=== PATIENT | female | born 1985 | race Caucasian/White ===

== ENCOUNTER 2023-12-02 12:07 | Inpatient (IN) ==
[2023-12-02] MEDS ORDERED: LIDOCAINE 1% LOCAL 20 ML VIAL INFIL PRN (13:09)
[2023-12-02] MEDS ORDERED: OXYTOCIN 30 UNITS/NSS 30 UNITS/500 ML BAG IV PRN (13:09)
[2023-12-02 13:41] LABS: Hemoglobin 12.4 g/dl (12.0-16.0); Mean Corpuscular Hemoglobin 30.4 pg (25.0-34.0); Mean Corpuscular Hgb Conc 34.4 g/dL (32.0-36.0); Mean Corpuscular Volume 88.2 fL (80.0-100.0); Mean Platelet Volume 10.3 fL (9.4-12.4); Platelet Count 277 K/uL (130-400); RDW Coefficient of Variation 13.5 % (11.5-14.5); RDW Standard Deviation 43.1 fL (36.4-46.3); Red Blood Count 4.08 M/uL (4.20-5.40); White Blood Count 11.41 K/ul (4.8-10.8)
[2023-12-02] MEDS: DINOPROSTONE 10 MG INSERT PV ONE (14:02)
--- NOTE | 2023-12-02 14:30 | History & Physical Report ---
Date of Service December 02, 2023 Assessment & Plan (1) Post-term , 40-42 weeks of gestation: Plan: 38-year-old -0-2-0 at 40 weeks and 4 days of gestation presenting today for induction of labor, Vital signs stable afebrile, heart rate reassuring, GBS negative, Cervix unfavorable, Plan to admit, labs, cervical ripening with Cervidil which was placed, continue to monitor. Patient understands the process of induction of labor and what to expect, All questions were answered. Admission and Anticipated Discharge Date Admission Date: December 02, 2023 History of Present Illness Primary Care Provider: Zakia Amato MD Patient is a 38-year-old -0-2-0 at 40 weeks and 4 days of gestation who was scheduled for induction of labor for postdates. She has no complaints. She denies contractions, leakage of fluid, vaginal bleeding. She reports good movements. Her has been uncomplicated except she has history of thyroid nodule, hypothyroidism, takes 125 mcg of levothyroxine. AMA, NIPT testing was low risk. GBS negative. Allergies Allergy/AdvReac Type Severity Reaction Status Date / Time azithromycin [From Zithromax] AdvReac Intermediate Hives Verified 08/15/20 09:04 latex AdvReac Intermediate Rash Verified 08/15/20 09:04 Home Medications Medication Instructions Recorded Confirmed Type levothyroxine 75 mcg tablet 125 mcg PO QAM 08/14/20 12/02/23 History vitamin-ferrous sulfate 1 tab PO QPM 08/14/20 12/02/23 History 27 mg iron-folic acid 0.8 mg tablet cyanocobalamin (vitamin B-12) 25 1,000 mcg PO DAILY 12/02/23 12/02/23 History mcg tablet Patient History Medical History (Updated 12/02/23 @ 14:29 by Melvina Stevenson MD) Sarah's disease Miscarriage Now for D+E Hypothyroidism Thyroid nodule BENIGN BIOPSY Heart murmur ? (Not mentioned in review of [facility] records, no h/o cardiac testing). Credit And Collection Manager did not hear it. Ultrasound revealed WNL. Surgical History S/P thyroid biopsy History of esophagogastroduodenoscopy (EGD) [place] teeth removed History of appendectomy Family History Other No family history of adverse response to anesthesia Social History Smoking Status: Never smoker Second Hand Exposure: Yes (IN THE PAST); Hx Alcohol Use: No Hx Substance Use: No Preferred Language: Lao Communication Ability: Effective Visual Impairment: No Limitations Glove Maker Required: No Beliefs That Will Affect Care: None marital status: marital status details: Christopher Stanford Current Living Situation: Spouse current occupational status: employed current occupation: [employer] Other Information That Helps Us Care for You: No Feels Safe at Home: Yes Safety Concerns: Feels Safe At This Time Diet: regular Assistive Devices: None INSTRUMENTATION TECHNOLOGIST History No history of STDs, no history of chlamydia, gonorrhea, herpes. Physical Exam Constitutional: WD/WN, vitals as above well developed, well nourished and comfortable Gastrointestinal (Abdomen): normal bowel sounds, soft, nontender, no hepatosplenomegaly (Gravid) Genitourinary: normal external appearance OB Exam Abdomen: + vertex (Confirmed with bedside ultrasound) Manual OB Exam: + cervical dilation fingertip, + cervical effacement 10% and + station high (Posterior) OB Exam Monitor Tracing: + external uterine monitor used and + category I Results & Data Vital Signs (Past 12 Hours) Vital Signs Temp Pulse Resp BP 12/02/23 12:25 36.4 C L 20 12/02/23 12:19 86 127/77
[2023-12-02] MEDS ORDERED: BUTORPHANOL TARTRATE 2 MG/ML VIAL IV PRN (16:05)
[2023-12-02] MEDS: PRENATAL VITAMIN 1 TAB PO SCH (20:15)
--- NOTE | 2023-12-03 01:41 | Obstetrical Progress Note ---
Date of Service December 03, 2023 Assessment & Plan Admission and Anticipated Discharge Date Admission Date: December 02, 2023 Subjective Patient is reevaluated. She feels mild irregular cramping, not painful, 1-2/10 in intensity No LOF/VB +FM FHR categ I VE; Cervidil is removed, cervix 1-2 cm/ 305/ -3, posterior Continue with cervical ripening, will start PO Cytotec in an hour Desires Benadryl to sleep Results & Data Vital Signs (Past 12 Hours) Vital Signs Temp Pulse Resp BP O2 Del Method 12/02/23 22:58 36.6 C 74 18 118/76 12/02/23 19:15 36.6 C 18 Room Air 12/02/23 19:08 76 118/74 12/02/23 15:14 36.7 C 71 20 114/73
[2023-12-03] MEDS: diphenhydrAMINE Capsule 25 MG CAP PO PRN (02:19)
--- OUTSIDE RECORDS SUMMARY | 2023-12-03 03:15 | External Medical Summary | Summary of Care ---
Author Name Unknown Organization [facility] Address [address] [place] [address] Phone [phone] Care Team Providers Care Salt Refiner Name Role Phone Zakia Amato MD Primary Care Provider Reason for Visit * Reason Onset Date Comments Appointment 11/28/2023 Encounter Details Date Type Department Care Team (Late st Contact Info) Description 11/28/2023 Telephone Gynecology/Obstetrics [facility] [address] [place] [address] Meggan Diaz CRNP [address] [place] [id number] Appointment Allergies Active Allergy Reactions Criticality Noted Date Comments Latex Other (Please comment) 11/01/2017 Sensitive Azithromycin 09/25/2008 documented as of this encounter (statuses as of 12/01/2023) Medications Medication Sig Dispensed Refills Start Date End Date Status Vit-Fe Xmf-ZQ-Jszkw ( FORMULA) 28-0.8-235 MG CAPS Take by mouth. 0 Ac tive Levothyroxine Sodium 125 MCG Oral Tablet (Levoxyl) Take 1 Tablet by mouth in the morning. (at least 30 min prior to breakfast or other meds). 30 Tablet 5 09/12/2023 Active Vitamin B-12 1000 MCG Oral Tablet (Cyanocobalamin) Take 1 Tablet by mouth in the morning. 100 Tablet 1 09/20/2023 Active documented as of this encounter (statuses as of 12/01/2023) Active Problems Problem Noted Date Diagnosed Date Iron deficiency anemia 09/20/2023 Anemia in 09/14/2023 , supervision, high-risk 06/03/2023 AMA (advanced maternal age) multigravida 35+ 09/2023 Overview: Patient will be 38 years-old at time of delivery ([place] 11/28/23). She had low-risk genetic screening with cffDNA. Last Assessment & Plan: She presents for a anatomy survey secondary to AMA and hypothyroidism. Please see the consultation visit from 07/27/23 for additional details/recommendations. We reviewed the results of today's ultrasound. The estimated weight is appropriate for gestational age in the 79th percentile. The visualized anatomy is unremarkable in appearance. The amniotic fluid amount appears normal. We discussed that ultrasound is not able to identify all anomalies, but it is reassuring that no anomalies were seen today. History of 2019 novel coronavirus disease (COVID -19) 07/08/2022 Thyroid nodule 05/14/2021 Overview: Thyroid nodule diagnosed 2013. Biopsied at [place], benign. Last ultrasound 04/2020 noted calcifications, moderately suspicious, continued surveillance recommended. 04/2023: nodule stable. ENT recommended repeat US by PCP in one year. 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 Patient has required multiple med adjustments in this . TSH Results: Lab Results Component Value Date/Time TSH - OUTSIDE LAB 3.01 07/14/2023 12:00 AM TSH - OUTSIDE LAB 2.70 06/08/2023 12:00 AM TSH - OUTSIDE LAB 2.88 04/27/2023 12:00 AM Last Assessment & Plan: Her most recent TSH on 07/14/23 was borderline at 3.01. She did have a dose adjustment, so we discussed that I suspect future testing will be improved. For now, will plan no follow-up with M. However, if she continues to require ongoing adjustments may need to consider follow-up to assess growth. H/O Sarah thyroiditis 11/01/2017 Acquired hypothyroidism 11/01/2017 Irritable bowel syndrome Estimated Date of Delivery Comme nts Yes 11/28/2023 Based on Ultraso und documented as of this encounter (statuses as of 12/01/2023) Resolved Problems Problem Noted Date Diagnosed Date Resolved Date Subchorionic hemorrhage in first trimester 08/08/2020 08/15/2020 Supervision of normal first 07/09/2020 08/15/2020 AMA (advanced maternal age) primigravida 35+ 0 08/15/2020 Backache 07/08/2020 Overview: wears orthotics and exercises documented as of this encounter (statuses as of 12/01/2023) Immunizations Name Administration Dates Next Due COVID-19 mRNA, LNP-s, No Pre serve, 2-Dose Series (Moderna) 12/08/2020,11/13/2020 RSV Vac., Bivalent, Perfusio n F, Pf,0.5 Ml (Abrysvo) 11/04/2023 Seasonal Influenza, PF, 6 M & above, IM , (FluLaval or Fluzone) 06/29/2023,07/08/2022,08/08/2020 TDAP (age 10 and older)(Boostrix) 09/06/2023, documented as of this encounter Social History Tobacco Use Types Packs/Day Years Used Date Smoking Tobacco: Never Smokeless Tobacco: Never Alcohol Use Standard Drinks/Week Comments Not Currently 0 (1 standard drink = 0.6 oz pur e alcohol) Denies in PHQ-2 Answer Date Recorded PHQ Adult Total Score 0 07/08/2022 Hunger Vital Sign Answer Date Recorded Within the past 12 months, y ou worried that your food would run out before you got the money to buy more. Never true 06/28/20 23 Within the past 12 months, t he food you bought just didn't last and you didn't have money to get more. Never true 06/28/2023 [place] Depression Scale Answer Date Recorded [place] Depression Scale Total 2 09/23/2023 The thought of harming myself has occurred to me . Never 09/23/2023 Estimated Date of Delivery Comme nts Yes 11/28/2023 Based on Ultraso und Sex and Gender Information Value Date Recorded Sex Assigned at Female 03/02/2019 12:22 PM EDT Gender Identity Female 03/02/2019 12:22 PM EDT Sexual Orientation Straight 03/02/2019 12 :22 PM EDT Job Start Date Occupation Industry Not on file Not on file Not on file documented as of this encounter Miscellaneous Notes * Telephone Encounter - Marta Rodriguez LPN - 12/01/2023 8:17 AM EST Called L+D for IOL dates. No openings at this time until . * Telephone Encounter - Maribel Mendieta RN - 11/28/2023 8:54 AM EST I called to L&D and spoke with Gloria. No openings for next week at this time. She will check at the time of her appt on Tuesday. * Telephone Encounter - Meggan Diaz CRNP - 11/28/2023 8:22 AM EST 41w is fine if there is availability. When she was here on Tuesday, we took the first available IOL,which was AFTER 42w. They then called with a different date. * Telephone Encounter - Maribel Mendieta RN - 11/28/2023 8:15 AM EST Pt called to see if she could bump her induction back until the 41st week. Is this okay, if opening? Pt can be reached at [phone] documented in this encounter Plan of Treatment Health Maintenance Due Date Last Done Comments Hepatitis B (1 of 3 - 3-dose series) 1985 HPV/Co-Test 2015 Diabetes Screening 11/07/2022 11/07/2019 COVID-19 Vaccine (3 24 season) 2023 12/08/2020, 11/13/2020 Depression Screening 07/08/2023 07/08/2022 Cervical Cancer Screening 08/07/2024 Pap Smear 08/07/2024 08/07/2021, 03/17, 03/29/2018 TSH 10/27/2024 10/27/2023, 08/18, 08/19/2023, Additional history exists DTaP,Tdap,and Td Vaccines (3 - Td or Tdap) 09/06/2033 09/06/2023, 11/01/2017 Influenza Vaccine (FLU shot) Completed , 07/08/2022, 08/08/2020, Additional history exists GARDASIL-HPV IMMUNIZATION SERIES Aged Out No longer eligible based on patient's age to complete this topic MENINGOCOCCAL (MENACTRA/MENVEO) Aged Out No longer eligible based on patient's age to complete this topic Pneumococcal Vaccine: Pediatrics (0 to 5 Years) and At-Risk Patients (6 to 64 Years) Aged Out No longer eligible based on patient's age to complete this topic documented as of this encounter Medical Devices Not on filedocumented as of this encounter Care Teams Salt Refiner Relationship Specialty Start Date End Date Zakia Amato MD [address] [place] [address] PCP - General Internal Medicine 05/05/21 documented as of this encounter
--- OUTSIDE RECORDS SUMMARY | 2023-12-03 03:15 | External Medical Summary | Summary of Care ---
Author Name Unknown Organization [facility] Address [address] [facility] [place] [address] Phone [phone] Care Team Providers Care Attending Pathologist Name Role Phone Zakia Amato MD Primary Care Provider Reason for Visit * Reason Onset Date Comments Appointment 11/28/2023 Encounter Details Date Type Department Care Team (Late st Contact Info) Description 11/28/2023 Telephone Gynecology/Obstetrics [facility] [address] [place] [address] Meggan Diaz CRNP [address] [place] [phone] Appointment Allergies Active Allergy Reactions Criticality Noted Date Comments Latex Other (Please comment) 11/01/2017 Sensitive Azithromycin 09/25/2008 documented as of this encounter (statuses as of 12/01/2023) Medications Medication Sig Dispensed Refills Start Date End Date Status Vit-Fe Ubv-CU-Sctfk ( FORMULA) 28-0.8-235 MG CAPS Take by [...] Overview: Thyroid nodule diagnosed 2013. Biopsied at [place], benign. Last ultrasound 04/2020 noted calcifications, moderately [...] money to get more. Never true 06/28/2023 [place] Depression Scale Answer Date Recorded [place] Depression Scale Total 2 09/23/2023 The thought [...] if opening? Pt can be reached at [phone] documented in this encounter Plan of Treatment [...] filedocumented as of this encounter Care Teams Attending Pathologist Relationship Specialty Start Date End Date Zakia Amato MD [address] [place] [address] PCP - General Internal Medicine 05/05/21 documented as of this encounter
--- OUTSIDE RECORDS SUMMARY | 2023-12-03 03:15 | External Medical Summary | Summary of Care ---
Author Name Unknown Organization [facility] Address [address] [place] [address] Phone [phone] Care Team Providers Care Continuous Improvement Coach Name Role Phone Zakia Amato MD Primary Care Provider Reason for Visit * Reason Comments IV Therapy Venofer 12/17 Encounter Details Date Type Department Care Team (Latest Contact Info) Description 10/13/2023 2:30 PM EST Hem/Onc Treatment Hematology/Oncology Treatment, [place] [address] [place] [address] Gayatri, Chair 8 Hem Onc Scenery [address] [place] [address] Iron deficiency anemia, unspecified iron deficiency anemia type* Allergies Active Allergy Reactions Criticality Noted Date Comments Latex Other (Please comment) 11/01/2017 Sensitive Azithromycin 09/25/2008 documented as of this encounter (statuses as of 12/02/2023) Medications Medication Sig Dispensed Refills Start Date End Date Status Vit-Fe Sal-VO-Hpfjd ( FORMULA) 28-0.8-235 MG CAPS Take by [...] as of this encounter (statuses as of 12/02/2023) Active Problems Problem Noted Date Diagnosed Date [...] Overview: Thyroid nodule diagnosed 2013. Biopsied at [place], benign. Last ultrasound 04/2020 noted calcifications, moderately [...] as of this encounter (statuses as of 12/02/2023) Resolved Problems Problem Noted Date Diagnosed Date Resolved Date Subchorionic hemorrhage in first trimester 08/08/2020 08/15/2020 Supervision of normal first 07/09/2020 08/15/2020 AMA (advanced maternal age) primigravida 35+ 0 08/15/2020 Backache 07/08/2020 Overview: wears orthotics and exercises documented as of this encounter (statuses as of 12/02/2023) Immunizations Name Administration Dates Next Due COVID-19 mRNA, LNP-s, No Pre serve, 2-Dose Series (Moderna) 12/08/2020,11/13/2020 Seasonal Influenza, PF, 6 M & above, [...] money to get more. Never true 06/28/2023 [place] Depression Scale Answer Date Recorded [place] Depression Scale Total 2 09/23/2023 The thought [...] on file documented as of this encounter Last Filed Vital Signs Vital Sign Reading Time Taken Comments Blood Pressure 121/76 10/13/2023 2:28 PM EST Pulse 86 10/13/2023 2:28 PM EST Temperature 37 C (98.6 F) 10/13/2023 2:28 PM EST Respiratory Rate 18 10/13/2023 2:28 PM EST Oxygen Saturation 99% 10/13/2023 2:28 PM EST Inhaled Oxygen Concentration - - Weight - - Height - - Body Mass Index - - documented in this encounter Nursing Notes * Crissy Torres RN - 10/13/2023 4:31 PM EST Goals: Patient will remain free from injury Possible barriers to meeting goals: ambulation with IV pole Stability of the patient: Moderately stable - low risk of patient condition declining or worsening Summary regarding today's goals: Met: Pt remained free of injury during treatment Patient tolerated treatment well and was discharged in stable condition. No coverage needed today. * Crissy Torres RN - 10/13/2023 2:45 PM EST Chair 2 Pt arrives for [facility] 12/17. She states she's tired but otherwise doing well. She reports having trouble sleeping due to carpal tunnel syndrome. She denies any acute concerns. IV started in the right forearm without difficulty, good blood return noted, flushed with NSS, fluids infusing. Safety and Risk for Injury Patient will remain free from injury. Ensure appropriate safety devices are available. Provide and maintain safe environment. documented in this encounter Plan of Treatment Health Maintenance Due Date Last Done Comments Hepatitis B (1 of 3 - 3-dose series) 1985 HPV/Co-Test 2015 Diabetes Screening 11/07/2022 11/07/2019 COVID-19 Vaccine ( season) 2023 12/08/2020, 11/13/2020 Depression Screening 07/08/2023 [...] Not on filedocumented as of this encounter Visit Diagnoses Diagnosis Iron deficiency anemia, unspecified iron deficiency anemia type- Primary documented in this encounter Administered Medications Inactive Administered Medications - up to 3 most recent administrations Medication Order MAR Action Action Date Dose Rate Site Iron Sucrose (Venofer) 300 mg in NSS 250 mL ivpb 300 mg, IV Piggyback, ONCE, 1 dose, On Lala 10/13/23 at 1615, Administer over 90 Minutes Start Infusion 10/13/2023 2:41 PM EST 300 mg 166.67 mL/hr NSS infusion 500 mL, Intravenous, at 50 mL/hr, CONTINUOUS, Starting on Lala 10/13/23 at 1545, Until Lala 10/13/23 at 5 Start Infusion 10/13/2023 2:35 PM EST 500 mL 50 mL/hr documented in this encounter Care Teams Continuous Improvement Coach Relationship Specialty Start Date End Date Zakia Amato MD [address] [place] [address] PCP - General Internal Medicine 05/05/21 documented as of this encounter
--- OUTSIDE RECORDS SUMMARY | 2023-12-03 03:16 | External Medical Summary | Summary of Care ---
Author Name Unknown Organization [facility] Address [address] [place] [address] Phone [phone] Care Team Providers Care Director Of Flight Operations Name Role Phone Zakia Amato MD Primary Care Provider Reason for Visit * Reason Comments Return Visit Encounter Details Date Type Department Care Team (Late st Contact Info) Description 11/04/2023 2:15 PM EST Office Visit Gynecology/Obstetric s [facility] [address] [place] [address] Meggan Diaz CRNP [address] [place] [address] Multigravida of advanced maternal age in third trimester*; Hypothyroidism affecting in third trimester; Supervision of high risk in second trimester Allergies Active Allergy Reactions Criticality Noted Date Comments Latex Other (Please comment) 11/01/2017 Sensitive Azithromycin 09/25/2008 documented as of this encounter (statuses as of 11/04/2023) Medications Medication Sig Dispensed Refills Start Date End Date Status Vit-Fe Kxe-QO-Fdigk ( FORMULA) 28-0.8-235 MG CAPS Take by [...] as of this encounter (statuses as of 11/04/2023) Active Problems Problem Noted Date Diagnosed Date Iron deficiency anemia 09/20/2023 Anemia in 09/14/2023 Supervision of high risk in second [facility] 06/03/2023 AMA (advanced maternal age) multigravida 35+ [...] Overview: Thyroid nodule diagnosed 2013. Biopsied at [place], benign. Last ultrasound 04/2020 noted calcifications, moderately [...] For now, will plan no follow-up with [facility]. However, if she continues to require ongoing adjustments may need to consider follow-up to assess growth. H/O Sarah thyroiditis 11/01/2017 Acquired hypothyroidism 11/01/2017 Irritable bowel syndrome Estimated Date of Delivery Comme nts Yes 11/28/2023 Based on Ultraso und documented as of this encounter (statuses as of 11/04/2023) Resolved Problems Problem Noted Date Diagnosed Date Resolved Date Subchorionic hemorrhage in first trimester 08/08/2020 08/15/2020 Supervision of normal first 07/09/2020 08/15/2020 AMA (advanced maternal age) primigravida 35+ 0 08/15/2020 Backache 07/08/2020 Overview: wears orthotics and exercises documented as of this encounter (statuses as of 11/04/2023) Immunizations Name Administration Dates Next Due COVID-19 [...] money to get more. Never true 06/28/2023 [place] Depression Scale Answer Date Recorded [place] Depression Scale Total 2 09/23/2023 The thought [...] Sign Reading Time Taken Comments Blood Pressure 110/68 11/04/2023 1:50 PM EST Pulse - - Temperature - - Respiratory Rate - - Oxygen Saturation - - Inhaled Oxygen Concentration - - Weight 79.4 kg (175 lb) 11/04/2023 1:50 PM EST Height 167.6 cm (5' 6") 11/04/2023 1:50 PM EST Body Mass Index 28.25 11/04/2023 1:50 PM EST documented in this encounter Progress Notes * Meggan Diaz CRNP - 11/04/2023 2:01 PM EST 36w4d Having pelvic pressure, discomfort, heartburn, swelling. Overall not complaining about any of this,just uncomfortable. Baby is active. No contractions, no bleeding or LOF. Had RSV vaccine today. U/s today confirming vertex position. GBS done Superintendent Nonselling Documentation Provider requested harbor master. Name of harbor master: MARCELA Mccollum documented in this encounter Nursing Notes * Charity Jones LPN - 11/04/2023 1:42 PM EST 36w4d Had position check today Vertex HR 122 documented in this encounter Plan of Treatment Upcoming Encounters Date Type Department Care Team (Late st Contact Info) Description 11/09/2023 9:30 AM EST Office Visit Gynecology/Obstetrics [facility] [address] [place] [address] Meggan Diaz CRNP [address] [place] [address] 11/11/2023 9:30 AM EST Pharmacy Pharmacy, [place] [address] [place] [address] Clinic, [facility] [address] [facility] [place] [address] 11/16/2023 1:45 PM EST Office Visit Gynecology/Obstetrics [facility] [address] [facility] [place] [address] Carmela Madrigal CRNP [address] [place] [address] 11/25/2023 2:30 PM EST Office Visit Gynecology/Obstetrics [facility] [address] [place] [address] Meggan Diaz CRNP [address] [place] [address] Scheduled Orders Name Type Priority Associated Diagnoses Orde r Schedule GROUP B STREP CULTURE/PCR Lab Routine Hypothyroidism affecting in third trimester Expected: 11/04/2023 (Approximate), Expires: 11/04/2024 Health Maintenance Due Date Last Done Comments Hepatitis B (1 of 3 - 3-dose series) 1985 HPV/Co-Test 2015 Diabetes Screening 11/07/2022 11/07/2019 COVID-19 Vaccine (2022- season) 2023 12/08/2020, 11/13/2020 Depression Screening 07/08/2023 [...] as of this encounter Visit Diagnoses Diagnosis Multigravida of advanced maternal age in third trimester- Primary Hypothyroidism affecting in third trimester Supervision of high risk in second trimester Unspecified high-risk documented in this encounter Care Teams Director Of Flight Operations Relationship Specialty Start Date End Date Zakia Amato MD [address] [place] [address] PCP - General Internal Medicine 05/05/21 documented as of this encounter
--- OUTSIDE RECORDS SUMMARY | 2023-12-03 03:16 | External Medical Summary | Summary of Care ---
Author Name Unknown Organization [facility] Address [address] [place] [address] Phone [phone] Care Team Providers Care Primer And Powder Canning Leader Name Role Phone Zakia Amato MD Primary Care Provider Reason for Visit * Reason Onset Date Comments Left Message Anemia Follow-Up 10/18/2023 Encounter Details Date Type Department Care Team (Late st Contact Info) Description 10/18/2023 2:00 PM [facility] Pharmacy Pharmacy, [place] [address], [place] [id number] Clinic, Anemia [address] [place] [address] Iron deficiency anemia, unspecified iron deficiency anemia type* Allergies Active Allergy Reactions Criticality Noted Date Comments Latex Other (Please comment) 11/01/2017 Sensitive Azithromycin 09/25/2008 documented as of this encounter (statuses as of 10/18/2023) Medications Medication Sig Dispensed Refills Start Date End Date Status Vit-Fe Wbf-AA-Ritka ( FORMULA) 28-0.8-235 MG CAPS Take by [...] as of this encounter (statuses as of 10/18/2023) Active Problems Problem Noted Date Diagnosed Date Iron deficiency anemia 09/20/2023 Anemia in 09/14/2023 [facility] in [facility] 06/03/2023 AMA (advanced maternal age) multigravida 35+ [...] Overview: Thyroid nodule diagnosed 2013. Biopsied at [place], benign. Last ultrasound 04/2020 noted calcifications, moderately [...] For now, will plan no follow-up with [facility]. However, if she continues to require ongoing adjustments may need to consider follow-up to assess growth. H/O Sarah thyroiditis 11/01/2017 Acquired hypothyroidism 11/01/2017 Irritable bowel syndrome Estimated Date of Delivery Comme nts Yes 11/28/2023 Based on Ultraso und documented as of this encounter (statuses as of 10/18/2023) Resolved Problems Problem Noted Date Diagnosed Date Resolved Date Subchorionic hemorrhage in first trimester 08/08/2020 08/15/2020 Supervision of normal first 07/09/2020 08/15/2020 AMA (advanced maternal age) primigravida 35+ 0 08/15/2020 Backache 07/08/2020 Overview: wears orthotics and exercises documented as of this encounter (statuses as of 10/18/2023) Immunizations Name Administration Dates Next Due COVID-19 [...] money to get more. Never true 06/28/2023 Longs Depression Scale Answer Date Recorded Longs Depression Scale Total 2 09/23/2023 The thought [...] on file documented as of this encounter Progress Notes * Bailey Castro RPh - 10/18/2023 4:05 PM EST CBCd, ferritin, iron screen, retic panel, B12, FA ordered for 11/10/23. Bailey Castro PharmD, [facility] Clinical Pharmacist [facility] (P: [phone]) 10/18/2023 4:05 PM * Rahel Buenrostro, recyclable products sorter - 10/18/2023 9:48 AM EST Patient Phone Numbers MyG Sent to patient. Patient received Venofer 300 mg x 3 on 09/29, 10/06 and 10/13. Labs due on 11/10/23. GA: [id number] Estimated Date of Delivery: 11/28/23 Pharmacist - please place appropriate lab orders. Thank you, Rahel Buenrostro Inclusion Special Education Teacher 10/18/2023,9:49 AM documented in this encounter Plan of Treatment Upcoming Encounters Date Type Department Care Team (Late st Contact Info) Description 10/21/2023 2:30 PM EST Office Visit Gynecology/Obstetrics [facility] [address] [facility] [place] [address] Alida Shaffer CNM [address] [facility] [place] [address] 11/04/2023 2:15 PM EST Office Visit Gynecology/Obstetrics [facility] [address] [facility] [place] [address] Meggan Diaz CRNP [address] [facility] [place] [address] 11/10/2023 2:00 PM EST Laboratory Laboratory, [facility] [place] [id number] WlakerBarbra spencer Aura [facility] [place] [address] 11/11/2023 9:30 AM EST Pharmacy Pharmacy, [place] [address] [place] [address] Clinic, Anemia [address] [place] [address] Scheduled Orders Name Type Priority Associated Diagnoses Orde r Schedule CBC WITH WBC DIFFERENTIAL Lab Routine Iron deficiency anemia, unspecified iron deficiency anemia type Expected: 11/10/2023, Expires: 09/17/2024 IRON SCREEN, INCLUDING TIBC Lab Routine Iron deficiency anemia, unspecified iron deficiency anemia type Expected: 11/10/2023, Expires: 09/17/2024 FERRITIN Lab Routine Iron deficiency anemia, unspecified iron deficiency anemia type Expected: 11/10/2023, Expires: 09/17/2024 RETICULOCYTE PANEL Lab Routine Iron deficiency anemia, unspecified iron deficiency anemia type Expected: 11/10/2023, Expires: 09/17/2024 FOLIC ACID Lab Routine Iron deficiency anemia, unspecified iron deficiency anemia type Expected: 11/10/2023, Expires: 09/17/2024 VITAMIN B12 Lab Routine Iron deficiency anemia, unspecified iron deficiency anemia type Expected: 11/10/2023, Expires: 09/17/2024 Health Maintenance Due Date Last Done Comments Hepatitis B (1 of 3 - 3-dose series) 1985 HPV/Co-Test 2015 Diabetes Screening 11/07/2022 11/07/2019 COVID-19 Vaccine ( season) 2023 12/08/2020, 11/13/2020 Depression Screening 07/08/2023 07/08/2022 Cervical Cancer Screening 08/07/2024 Pap Smear 08/07/2024 08/07/2021, 03/17, 03/29/2018 TSH 09/12/2024 09/12/2023, 12/2022, 07/14/2023, Additional history exists DTaP,Tdap,and Td Vaccines (3 [...] anemia type- Primary documented in this encounter Care Teams Primer And Powder Canning Leader Relationship Specialty Start Date End Date Zakia Amato MD [address] [place] [address] PCP - General Internal Medicine 05/05/21 documented as of this encounter
--- OUTSIDE RECORDS SUMMARY | 2023-12-03 03:16 | External Medical Summary | Summary of Care ---
Author Name Unknown Organization [facility] Address [address] [place] [address] Phone [phone] Care Team Providers Care Bottler Helper Name Role Phone Zakia Amato MD Primary Care Provider Reason for Visit * Reason Comments IV Therapy Venofer 12/17 Encounter Details Date Type Department Care Team (Latest Contact Info) Description 10/13/2023 2:30 PM EST Hem/Onc Treatment Hematology/Oncology Treatment, [place] [address] [place] [address] Gayatri, Chair 8 Hem Onc Scen[place] [address] [place] [address] Iron deficiency anemia, unspecified iron deficiency anemia type* Allergies Active Allergy Reactions Criticality Noted Date Comments Latex Other (Please comment) 11/01/2017 Sensitive Azithromycin 09/25/2008 documented as of this encounter (statuses as of 10/13/2023) Medications Medication Sig Dispensed Refills Start Date End Date Status Vit-Fe Igv-MW-Rlviu ( FORMULA) 28-0.8-235 MG CAPS Take by [...] as of this encounter (statuses as of 10/13/2023) Active Problems Problem Noted Date Diagnosed Date Iron deficiency anemia 09/20/2023 Anemia in 09/14/2023 Supervision of high risk in [facility] 06/03/2023 AMA (advanced maternal age) multigravida 35+ [...] Overview: Thyroid nodule diagnosed 2013. Biopsied at [place], benign. Last ultrasound 04/2020 noted calcifications, moderately [...] For now, will plan no follow-up with [facility]. However, if she continues to require ongoing adjustments may need to consider follow-up to assess growth. H/O Sarah thyroiditis 11/01/2017 Acquired hypothyroidism 11/01/2017 Irritable bowel syndrome Estimated Date of Delivery Comme nts Yes 11/28/2023 Based on Ultraso und documented as of this encounter (statuses as of 10/13/2023) Resolved Problems Problem Noted Date Diagnosed Date Resolved Date Subchorionic hemorrhage in first trimester 08/08/2020 08/15/2020 Supervision of normal first 07/09/2020 08/15/2020 AMA (advanced maternal age) primigravida 35+ 0 08/15/2020 Backache 07/08/2020 Overview: wears orthotics and exercises documented as of this encounter (statuses as of 10/13/2023) Immunizations Name Administration Dates Next Due COVID-19 [...] money to get more. Never true 06/28/2023 [place] Depression Scale Answer Date Recorded [place] Depression Scale Total 2 09/23/2023 The thought [...] PM EST Chair 2 Pt arrives for [facility] 12/17. She states she's tired but otherwise [...] Team (Late st Contact Info) Description 10/18/2023 1:30 PM EST Pharmacy Pharmacy, [place] [address] [place] [address] Clinic, [facility] [place] [address] [place] [address] 10/21/2023 2:30 PM EST Office Visit Gynecology/Obstetrics [facility] [address] [facility] [place] [address] Alida Shaffer, MARCIN [address] [place] [address] 11/04/2023 2:15 PM EST Office Visit Gynecology/Obstetrics [facility] [address] [facility] [place] [address] Meggan Diaz CRNP [address] [place] [address] Health Maintenance Due Date Last Done Comments Hepatitis B (1 of 3 - 3-dose series) 1985 HPV/Co-Test 2015 Diabetes Screening 11/07/2022 11/07/2019 COVID-19 Vaccine (3 - 2022- season) 2023 12/08/2020, 11/13/2020 Depression Screening 07/08/2023 [...] Primary documented in this encounter Administered Medications Active Administered Medications - up to 3 most recent administrations Medication Order MAR Action Action Date Dose Rate Site diphenhydrAMINE (Benadryl) inj 50 mg 50 mg, IV Push, ONCE PRN Other, Hypersensitivity Reaction, Starting on Lala 10/13/23 at 1440, Until Tue10/14/23 at 1439, For 24 hours EPINEPHrine 1 MG/ML inj 0.3 mg 0.3 mg, Intramuscular, ONCE PRN Other, Hypersensitivity Reaction or Anaphylaxis, Starting on Lala 10/13/23 at 1440, Until Tue10/14/23 at 1439, For 24 hours hEParin 100 UNIT/ML Lock Flush inj 500 Units 500 Units (5 mL), IV Lock, PRN Other, IV Flush, Starting on Lala 10/13/23 at 1440, Until Tue10/14/23 at 1439, For 24 hours, Do not flush if lock, PICC, or central line not in place; IV infusing or unable to flush. Hydrocortisone Sod Suc (PF) (Solu-Cortef) inj 100 mg 100 mg, IV Push, ONCE PRN Other, Hypersensitivity Reaction, Starting on Tue10/13/23 at 1440, Until Tue10/14/23 at 1439, For 24 hours NSS infusion 500 mL, Intravenous, at 50 mL/hr, CONTINUOUS, Starting on Tue10/13/23 at 1545, Until Tue10/14/23 at 0144 Start Infusion 10/13/2023 2:35 PM EST 500 mL 50 mL/hr oxygen GAS Inhalation, OXYGEN, First dose on Tue10/13/23 at 1600, Until Discontinued, Device/Managed by: Low Flow Device, Goal SPO2 (%): 91-95, Starting Device: Nasal Cannula, Initial Flow Rate (LPM): 2, Lowest Support: Nasal Cannula: Flow 0-6 LPM. Titrate up/down by 1 LPM., Higher Support: Non-Rebreather (NRB) Mask: Minimum of 10 LPM. Titrate to maintain bag inflation., Titration Interval: Q2 minutes and as needed., Notify Provider: For sudden DECREASE in resting SPO2 to less than 85% and when escalating delivery device., Wean patient off Oxygen when the oxygen saturation is greater than or equal to 93% sodium chloride 0.9 % flush central line 10 mL 10 mL, IV Push, PRN Other, IV Flush, Starting on Lala 10/13/23 at 1440, Until Tue10/14/23 at 1439, For 24 hours, Do not flush if lock, PICC, or central line not in place; IV infusing or unable to flush. Inactive Administered Medications - up to 3 most recent administrations Medication Order MAR Action Action Date Dose Rate Site Iron Sucrose (Venofer) 300 mg in NSS 250 mL ivpb 300 mg, IV Piggyback, ONCE, 1 dose, On Lala 10/13/23 at 1615, Administer over 90 Minutes Start Infusion 10/13/2023 2:41 PM EST 300 mg 166.67 mL/hr documented in this encounter Care Teams Bottler Helper Relationship Specialty Start Date End Date Zakia Amato MD [address] [place] [address] PCP - General Internal Medicine 05/05/21 documented as of this encounter
--- OUTSIDE RECORDS SUMMARY | 2023-12-03 03:16 | External Medical Summary | Summary of Care ---
Author Name Unknown Organization [facility] Address [address] [place] [address] Phone [phone] Care Team Providers Care Brine Well Operator Name Role Phone Zakia Amato MD Primary Care Provider Reason for Referral * (Within 10 days (routine)) Specialty Diagnoses / Procedures Referred By Milana t Referred To Contact Meggan Diaz CRNP [address] [place] [address] Referral ID Status Reason Start Date Expiration Date Visits Re quested Visits Authorized Question Answer Referral Priority Within 10 days (routine) Where should this appointment be scheduled? [facility] Encounter Details Date Type Department Care Team (Late st Contact Info) Description 09/14/2023 Telephone Gynecology/Obstetrics [facility] [address] [place] [address] Meggan Diaz CRNP [address] [place] [address] Allergies Active Allergy Reactions Criticality Noted Date Comments Latex Other (Please comment) 11/01/2017 Sensitive Azithromycin 09/25/2008 documented as of this encounter (statuses as of 11/03/2023) Medications Medication Sig Dispensed Refills Start Date End Date Status Vit-Fe Jzb-VN-Owvyx ( FORMULA) 28-0.8-235 MG CAPS Take by mouth. 0 Ac tive Levothyroxine Sodium 125 MCG Oral Tablet (Levoxyl) Take 1 Tablet by mouth in the morning. (at least 30 min prior to breakfast or other meds). 30 Tablet 5 09/12/2023 Active documented as of this encounter (statuses as of 11/03/2023) Active Problems Problem Noted Date Diagnosed Date Iron deficiency anemia 09/20/2023 Anemia in 09/14/2023 Supervision of high risk in [facility] 06/03/2023 AMA (advanced maternal age) multigravida [...] Overview: Thyroid nodule diagnosed 2013. Biopsied at [place], benign. Last ultrasound 04/2020 noted calcifications, moderately [...] For now, will plan no follow-up with [facility]. However, if she continues to require ongoing adjustments may need to consider follow-up to assess growth. H/O Sarah thyroiditis 11/01/2017 Acquired hypothyroidism 11/01/2017 Irritable bowel syndrome Estimated Date of Delivery Comme nts Yes 11/28/2023 Based on Ultraso und documented as of this encounter (statuses as of 11/03/2023) Resolved Problems Problem Noted Date Diagnosed Date Resolved Date Subchorionic hemorrhage in first trimester 08/08/2020 08/15/2020 Supervision of normal first 07/09/2020 08/15/2020 AMA (advanced maternal age) primigravida 35+ 0 08/15/2020 Backache 07/08/2020 Overview: wears orthotics and exercises documented as of this encounter (statuses as of 11/03/2023) Immunizations Name Administration Dates Next Due COVID-19 [...] to get more. Never true 06/28/2023 [place] Depression Scale Answer Date Recorded [place] Depression Scale Total 2 09/23/2023 The thought [...] encounter Miscellaneous Notes * Telephone Encounter - Meggan Diaz CRNP - 09/14/2023 2:11 PM EST Labs received from [facility]. Blood management referral placed. documented in this encounter Plan of Treatment Upcoming Encounters Date Type Department Care Team (Late st Contact Info) Description 11/04/2023 1:15 PM EST Imaging Radiology [facility] [address] [facility] [place] [address] 11/04/2023 2:15 PM EST Office Visit Gynecology/Obstetrics [facility] [address] [place] [address] Meggan Diaz CRNP [address] [place] [address] 11/09/2023 9:30 AM EST Office Visit Gynecology/Obstetrics [facility] [address] [place] [address] Meggan Diaz CRNP [address] [place] [address] 11/11/2023 9:30 AM EST Pharmacy Pharmacy, [place] [address] [place] [address] Clinic, [facility] [address] [place] [address] 11/16/2023 1:45 PM EST Office Visit Gynecology/Obstetrics [facility] [address] [place] [address] Carmela Madrigal CRNP [address] [place] [address] 11/25/2023 2:30 PM EST Office Visit Gynecology[facility]Obstetrics [facility] [address] [place] [address] Meggan Diaz CRNP [address] [place] [address] Scheduled Referrals Name Type Priority Associated Diagnoses Orde r Schedule BLOOD MANAGEMENT REFERRAL Referral Within 10 days (routine) Antepartum anemia complicating Ordered: 09/14/2023 Health Maintenance Due Date Last Done Comments [...] as of this encounter Visit Diagnoses Diagnosis Antepartum anemia complicating - Primary Anemia, antepartum documented in this encounter Care Teams Brine Well Operator Relationship Specialty Start Date End Date Zakia Amato MD [address] [place] [address] PCP - General Internal Medicine 05/05/21 documented as of this encounter
--- OUTSIDE RECORDS SUMMARY | 2023-12-03 03:16 | External Medical Summary | Summary of Care ---
Author Name Unknown Organization [facility] Address [address] [place] [address] Phone [phone] Care Team Providers Care Auto Detailer Name Role Phone Zakia Amato MD Primary Care Provider Reason for Visit * Reason Onset Date Comments Anemia Follow-Up 11/22/2023 Encounter Details Date Type Department Care Team (Late st Contact Info) Description 11/11/2023 9:30 AM [facility] Pharmacy Pharmacy, [place] [address] [place], [place] [id number] Clinic, Anemia [address] [place], [place] [phone] Iron deficiency anemia, unspecified iron deficiency anemia type* Allergies Active Allergy Reactions Criticality Noted Date Comments Latex Other (Please comment) 11/01/2017 Sensitive Azithromycin 09/25/2008 documented as of this encounter (statuses as of 11/22/2023) Medications Medication Sig Dispensed Refills Start Date End Date Status Vit-Fe Zix-XP-Zpmvi ( FORMULA) 28-0.8-235 MG CAPS Take by [...] as of this encounter (statuses as of 11/22/2023) Active Problems Problem Noted Date Diagnosed Date [...] Overview: Thyroid nodule diagnosed 2013. Biopsied at [place], benign. Last ultrasound 04/2020 noted calcifications, moderately [...] as of this encounter (statuses as of 11/22/2023) Resolved Problems Problem Noted Date Diagnosed Date Resolved Date Subchorionic hemorrhage in first trimester 08/08/2020 08/15/2020 Supervision of normal first 07/09/2020 08/15/2020 AMA (advanced maternal age) primigravida 35+ 0 08/15/2020 Backache 07/08/2020 Overview: wears orthotics and exercises documented as of this encounter (statuses as of 11/22/2023) Immunizations Name Administration Dates Next Due COVID-19 [...] money to get more. Never true 06/28/2023 [place] Depression Scale Answer Date Recorded [place] Depression Scale Total 2 09/23/2023 The thought [...] as of this encounter Progress Notes * Haylee Cam [facility] - 11/22/2023 3:27 PM EST Patient Phone Numbers Called patient to review labs from 11/10. Patient had labs done at [facility] (scanned into chart under outside chemistry) GA: [id number] Estimated Date of Delivery: 11/28/23 Hgb: 11.7 g/dL Patient is s/p Venofer 300mg IV x 3 on 09/29, 10/06, 10/13. Hgb is within target range for the third trimester. Iron studies not done. Patient reports feeling pretty good, and otherwise denies signs/symptoms of anemia. Plan: No anemia pharmacological intervention at this time. Anemia Clinic will sign off. Thank you for allowing us to participate in the care of this patient. Thanks, Haylee Cam [facility] Clinical Pharmacist [facility] Anemia Clinic (P: [phone]) 11/22/2023 3:31 PM documented in this encounter Plan of Treatment Upcoming Encounters Date Type Department Care Team (Late st Contact Info) Description 11/25/2023 2:30 PM EST [facility] [address] [place] [address] Meggan Diaz CRNP [address] [place] [address] Health Maintenance Due Date Last Done Comments [...] Primary documented in this encounter Care Teams Auto Detailer Relationship Specialty Start Date End Date Zakia Amato MD [address] [place] [address] PCP - General Internal Medicine 05/05/21 documented as of this encounter
--- OUTSIDE RECORDS SUMMARY | 2023-12-03 03:16 | External Medical Summary | Summary of Care ---
Author Name Unknown Organization [facility] Address [address] [facility] [place] [address] Phone [phone] Care Team Providers Care Public Welfare Worker Name Role Phone Zakia Amato MD Primary Care Provider Encounter Details Date Type Department Care Team (Late st Contact Info) Description 11/25/2023 Telephone Gynecology/Obstetrics [facility] [address] [place] [id number] Meggan Diaz CRNP [address] [place] [address] Allergies Active Allergy Reactions Criticality Noted Date Comments Latex Other (Please comment) 11/01/2017 Sensitive Azithromycin 09/25/2008 documented as of this encounter (statuses as of 11/25/2023) Medications Medication Sig Dispensed Refills Start Date End Date Status Vit-Fe Ddr-WP-Pvdxy ( FORMULA) 28-0.8-235 MG CAPS Take by [...] as of this encounter (statuses as of 11/25/2023) Active Problems Problem Noted Date Diagnosed Date [...] Overview: Thyroid nodule diagnosed 2013. Biopsied at [place], benign. Last ultrasound 04/2020 noted calcifications, moderately suspicious, continued surveillance recommended. 04/2023: nodule stable. ENT recommended repeat US by PCP in one year. 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 [...] as of this encounter (statuses as of 11/25/2023) Resolved Problems Problem Noted Date Diagnosed Date Resolved Date Subchorionic hemorrhage in first trimester 08/08/2020 08/15/2020 Supervision of normal first 07/09/2020 08/15/2020 AMA (advanced maternal age) primigravida 35+ 0 08/15/2020 Backache 07/08/2020 Overview: wears orthotics and exercises documented as of this encounter (statuses as of 11/25/2023) Immunizations Name Administration Dates Next Due COVID-19 [...] money to get more. Never true 06/28/2023 [place] Depression Scale Answer Date Recorded [place] Depression Scale Total 2 09/23/2023 The thought [...] encounter Miscellaneous Notes * Telephone Encounter - Matra Rodriguez LPN - 11/25/2023 4:25 PM EST Received call from Koki at [facility]. Patients induction moved up to 12/02, they will fit her in after scheduled c-sections. She is to call L+D at 11am for her arrival time. Patient aware and agreeable. documented in this encounter Plan of Treatment Upcoming Encounters Date Type Department Care Team (Late st Contact Info) Description 11/30/2023 8:45 AM EST Office Visit Gynecology/Obstetrics [facility] [address] [place] [address] Martin Mederos MD [address] [place] [address] Health Maintenance Due Date Last Done Comments [...] filedocumented as of this encounter Care Teams Public Welfare Worker Relationship Specialty Start Date End Date Zakia Amato MD [address] [place] [address] PCP - General Internal Medicine 05/05/21 documented as of this encounter
--- OUTSIDE RECORDS SUMMARY | 2023-12-03 03:16 | External Medical Summary | Summary of Care ---
Author Name Unknown Organization [facility] Address [address] [place] [address] Phone [phone] Care Team Providers Care Plant Director Name Role Phone Zakia Amato MD Primary Care Provider Reason for Visit * Reason Comments Return Visit Encounter Details Date Type Department Care Team (Latest Contact Info) Description 11/30/2023 8:45 AM EST Office Visit Gynecology/Obstetri [facility] [address] [place] [address] Martin Mederos MD [address] [place] [address] Hypothyroidism affecting in third trimester*; Multigravida of advanced maternal age in third trimester; Supervision of high risk in third trimester; Anemia during in third trimester Allergies Active Allergy Reactions Criticality Noted Date Comments Latex Other (Please comment) 11/01/2017 Sensitive Azithromycin 09/25/2008 documented as of this encounter (statuses as of 11/30/2023) Medications Medication Sig Dispensed Refills Start Date End Date Status Vit-Fe Dly-BE-Qupoh ( FORMULA) 28-0.8-235 MG CAPS Take by [...] as of this encounter (statuses as of 11/30/2023) Active Problems Problem Noted Date Diagnosed Date [...] Overview: Thyroid nodule diagnosed 2013. Biopsied at [place], benign. Last ultrasound 04/2020 noted calcifications, moderately [...] For now, will plan no follow-up with [facility]. However, if she continues to require ongoing adjustments may need to consider follow-up to assess growth. H/O Sarah thyroiditis 11/01/2017 Acquired hypothyroidism 11/01/2017 Irritable bowel syndrome Estimated Date of Delivery Comme nts Yes 11/28/2023 Based on Ultraso und documented as of this encounter (statuses as of 11/30/2023) Resolved Problems Problem Noted Date Diagnosed Date Resolved Date Subchorionic hemorrhage in first trimester 08/08/2020 08/15/2020 Supervision of normal first 07/09/2020 08/15/2020 AMA (advanced maternal age) primigravida 35+ 0 08/15/2020 Backache 07/08/2020 Overview: wears orthotics and exercises documented as of this encounter (statuses as of 11/30/2023) Immunizations Name Administration Dates Next Due COVID-19 [...] money to get more. Never true 06/28/2023 [place] Depression Scale Answer Date Recorded [place] Depression Scale Total 2 09/23/2023 The thought [...] Sign Reading Time Taken Comments Blood Pressure 118/70 11/30/2023 9:08 AM EST Pulse - - Temperature - - Respiratory Rate - - Oxygen Saturation - - Inhaled Oxygen Concentration - - Weight 81.6 kg (180 lb) 11/30/2023 9:08 AM EST Height 167.6 cm (5' 6") 11/30/2023 9:08 AM EST Body Mass Index 29.05 11/30/2023 9:08 AM EST documented in this encounter Progress Notes * Martin Mederos MD - 11/30/2023 9:13 AM EST Pt doing well No complaints Ilda for induction * Charity Jones LPN - 11/30/2023 9:08 AM EST 40w2d documented in this encounter Plan of Treatment [...] as of this encounter Visit Diagnoses Diagnosis Hypothyroidism affecting in third trimester- Primary Multigravida of advanced maternal age in third trimester Supervision of high risk in third trimester Unspecified high-risk Anemia during in third trimester documented in this encounter Care Teams Plant Director Relationship Specialty Start Date End Date Zakia Amato MD [address] [place] [address] PCP - General Internal Medicine 05/05/21 documented as of this encounter
--- OUTSIDE RECORDS SUMMARY | 2023-12-03 03:16 | External Medical Summary | Summary of Care ---
Author Name Unknown Organization [facility] Address [address] [place] [address] Phone [phone] Care Team Providers Care Sock Liner Name Role Phone Zakia Amato MD Primary Care Provider Reason for Visit * Reason Onset Date Comments Appointment 11/28/2023 Encounter Details Date Type Department Care Team (Late st Contact Info) Description 11/28/2023 Telephone Gynecology/Obstetrics [facility] [address] [place] [address] Meggan Diaz CRNP [address] [place] [phone] Appointment Allergies Active Allergy Reactions Criticality Noted Date Comments Latex Other (Please comment) 11/01/2017 Sensitive Azithromycin 09/25/2008 documented as of this encounter (statuses as of 11/28/2023) Medications Medication Sig Dispensed Refills Start Date End Date Status Vit-Fe Diw-SB-Tmsau ( FORMULA) 28-0.8-235 MG CAPS Take by [...] as of this encounter (statuses as of 11/28/2023) Active Problems Problem Noted Date Diagnosed Date [...] Overview: Thyroid nodule diagnosed 2013. Biopsied at [place], benign. Last ultrasound 04/2020 noted calcifications, moderately [...] as of this encounter (statuses as of 11/28/2023) Resolved Problems Problem Noted Date Diagnosed Date Resolved Date Subchorionic hemorrhage in first trimester 08/08/2020 08/15/2020 Supervision of normal first 07/09/2020 08/15/2020 AMA (advanced maternal age) primigravida 35+ 0 08/15/2020 Backache 07/08/2020 Overview: wears orthotics and exercises documented as of this encounter (statuses as of 11/28/2023) Immunizations Name Administration Dates Next Due COVID-19 [...] money to get more. Never true 06/28/2023 [place] Depression Scale Answer Date Recorded [place] Depression Scale Total 2 09/23/2023 The thought [...] encounter Miscellaneous Notes * Telephone Encounter - Maribel Mendieta RN [...] if opening? Pt can be reached at [phone] documented in this encounter Plan of Treatment Upcoming Encounters Date Type Department Care Team (Late st Contact Info) Description 11/30/2023 8:45 AM EST Office Visit Gynecology/Obstetrics [facility] [address] [place] [address] Martin Mederos MD [address] [place] [address] Health Maintenance Due Date Last Done Comments [...] filedocumented as of this encounter Care Teams Sock Liner Relationship Specialty Start Date End Date Zakia Amato MD [address] [place] [address] PCP - General Internal Medicine 05/05/21 documented as of this encounter
--- OUTSIDE RECORDS SUMMARY | 2023-12-03 03:16 | External Medical Summary | Summary of Care ---
Author Name Unknown Organization [facility] Address [address] [place] [address] Phone [phone] Care Team Providers Care Computer Terminal Operator Name Role Phone Zakia Amato MD Primary Care Provider Reason for Visit * Reason Onset Date Comments Referral 07/20/2023 Encounter Details Date Type Department Care Team (Late st Contact Info) Description 07/20/2023 Telephone Oracle D[employer] Consultant Obstetrics [facility] [place] [address] [place] [address] [place], Nurse Oracle Drm Consultant [facility] [address] [place], [place] [id number] Referral Allergies Active Allergy Reactions Criticality Noted Date Comments Latex Other (Please comment) 11/01/2017 Sensitive Azithromycin 09/25/2008 documented as of this encounter (statuses as of 10/19/2023) Medications Medication Sig Dispensed Refills Start Date End Date Status Vit-Fe Aok-UZ-Mvrrb ( FORMULA) 28-0.8-235 MG CAPS Take by mouth. 0 Active documented as of this encounter (statuses as of 10/19/2023) Active Problems Problem Noted Date Diagnosed Date Iron deficiency anemia 09/20/2023 Anemia in 09/14/2023 Supervision of high risk in [facility] 06/03/2023 AMA (advanced maternal age) multigravida [...] Overview: Thyroid nodule diagnosed 2013. Biopsied at [place], benign. Last ultrasound 04/2020 noted calcifications, moderately [...] For now, will plan no follow-up with [facility]. However, if she continues to require ongoing adjustments may need to consider follow-up to assess growth. H/O Sarah thyroiditis 11/01/2017 Acquired hypothyroidism 11/01/2017 Irritable bowel syndrome Estimated Date of Delivery Comme nts Yes 11/28/2023 Based on Ultraso und documented as of this encounter (statuses as of 10/19/2023) Resolved Problems Problem Noted Date Diagnosed Date Resolved Date Subchorionic hemorrhage in first trimester 08/08/2020 08/15/2020 Supervision of normal first 07/09/2020 08/15/2020 AMA (advanced maternal age) primigravida 35+ 0 08/15/2020 Backache 07/08/2020 Overview: wears orthotics and exercises documented as of this encounter (statuses as of 10/19/2023) Immunizations Name Administration Dates Next Due COVID-19 mRNA, LNP-s, No Pre serve, 2-Dose Series (Moderna) 12/08/2020,11/13/2020 Seasonal Influenza, PF, 6 M & above, IM , (FluLaval or Fluzone) 06/29/2023,07/08/2022,08/08/2020 TDAP (age 10 and older)(Boostrix) 11/01/2017 documented as of this encounter Social History Tobacco Use Types Packs/Day Years Used Date Smoking Tobacco: Never Smokeless Tobacco: Never Alcohol Use Standard Drinks/Week Comments Not Currently 0 (1 standard drink = 0.6 oz pur e alcohol) 1 drink/week PHQ-2 Answer Date Recorded PHQ Adult Total [...] money to get more. Never true 06/28/2023 [place] Depression Scale Answer Date Recorded [place] Depression Scale Total 2 09/23/2023 The thought [...] encounter Miscellaneous Notes * Telephone Encounter - Sarah Diehl OSA - 07/20/2023 1:55 PM EDT Appointments scheduled * Telephone Encounter - Adriana Mccall OSA - 07/20/2023 11:42 AM EDT Called patient. Left message on answering machine to call office. Sent myg * Telephone Encounter - Opal Robins LPN - 07/20/2023 10:39 AM EDT Dating Scan Complete Estimated Date of Delivery: 11/28/23 Please schedule for 45 MINUTE CONSULT SIMPLE MEDICAL WITH [employer], in time frame of next available or atpatient's earliest convenience at location [facility] with the indication of hypothyroid, med dose adjustment at 21w . Please schedule anatomy within 1-2 weeks, preferably within 1 week since she is already 21 weeks and 2 days Referring Provider: Meggan Guido Sent to scheduling pool documented in this encounter Plan of Treatment Upcoming Encounters Date Type Department Care Team (Late st Contact Info) Description 10/21/2023 2:30 PM EST Office Visit Gynecology/Obstetrics [facility] [address] [facility] [place] [address] Alida Shaffer, [address] [address] 11/04/2023 2:15 PM EST Office Visit Gynecology/Obstetrics [facility] [address] [place] [address] Meggan Guido CRNP [address] [place] [address] 11/10/2023 2:00 PM EST Laboratory Laboratory, [facility] [address] [place] [id number] [facility] [address] [place] [address] 11/11/2023 9:30 AM EST Pharmacy Pharmacy, [place] [address] [place] [address] Clinic, [facility] [address] [place] [address] Health Maintenance Due Date Last Done Comments [...] filedocumented as of this encounter Care Teams Computer Terminal Operator Relationship Specialty Start Date End Date Zakia Amato MD [address] [place] [address] PCP - General Internal Medicine 05/05/21 documented as of this encounter
--- OUTSIDE RECORDS SUMMARY | 2023-12-03 03:16 | External Medical Summary | Summary of Care ---
Author Name Unknown Organization [facility] Address [address] [place] [facility] [place] [address] Phone [phone] Care Team Providers Care Weld Lay Out Worker Name Role Phone Zakia Amato MD Primary Care Provider Encounter Details Date Type Department Care Team (Late st Contact Info) Description 11/14/2023 Orders Only Family [facility] [address] [place] [address] Zakia Amato MD [address] [place] [address] Allergies Active Allergy Reactions Criticality Noted Date Comments Latex Other (Please comment) 11/01/2017 Sensitive Azithromycin 09/25/2008 documented as of this encounter (statuses as of 11/14/2023) Medications Medication Sig Dispensed Refills Start Date End Date Status Vit-Fe Iwm-VW-Tnmuq ( FORMULA) 28-0.8-235 MG CAPS Take by [...] as of this encounter (statuses as of 11/14/2023) Active Problems Problem Noted Date Diagnosed Date Iron deficiency anemia 09/20/2023 Anemia in 09/14/2023 Supervision of high risk in second tri mester 06/03/2023 AMA (advanced maternal age) multigravida 35+ [...] Overview: Thyroid nodule diagnosed 2013. Biopsied at [place], benign. Last ultrasound 04/2020 noted calcifications, moderately [...] as of this encounter (statuses as of 11/14/2023) Resolved Problems Problem Noted Date Diagnosed Date Resolved Date Subchorionic hemorrhage in first trimester 08/08/2020 08/15/2020 Supervision of normal first 07/09/2020 08/15/2020 AMA (advanced maternal age) primigravida 35+ 0 08/15/2020 Backache 07/08/2020 Overview: wears orthotics and exercises documented as of this encounter (statuses as of 11/14/2023) Immunizations Name Administration Dates Next Due COVID-19 [...] money to get more. Never true 06/28/2023 [place] Depression Scale Answer Date Recorded [place] Depression Scale Total 2 09/23/2023 The thought [...] on file documented as of this encounter Plan of Treatment Upcoming Encounters Date Type Department Care Team (Late st Contact Info) Description 11/16/2023 1:45 PM EST Office Visit Gynecology/Obstetrics [facility] [address] [place] [address] Carmela Madrigal CRNP [address] [place] [address] 11/25/2023 2:30 PM EST Office Visit Gynecology/Obstetrics [facility] [address] [place] [address] Meggan Diaz CRNP [address] [place] [address] Health Maintenance Due Date Last Done Comments [...] Not on filedocumented as of this encounter Procedures Procedure Name Priority Date/Time Associated Diagnosis Comments CHEMISTRY-OUTSIDE Routine 11/10/2023 documented in this encounter Results * CHEMISTRY-OUTSIDE (11/10/2023) Not all results display below - see scan for full detail OUTSIDE LAB (SEE SCANNED REPORT) Comment:SCAN INCLUDES - IRON , TIBC AND FERRITIN, RETICULOCYTE COUNT, CBCD, VIT B12, FOLATE CREATININE-OUTSID E LAB OUTSIDE LAB (SEE SCANNED REPORT) EGFR-OUTSIDE LAB OUT SIDE LAB (SEE SCANNED REPORT) POTASSIUM-OUTSIDE LAB OUTSIDE LAB (SEE SCANNED REPORT) GLUCOSE-OUTSIDE LAB OUTSIDE LAB (SEE SCANNED REPORT) HOURS FASTING OUTSID E LAB (SEE SCANNED REPORT) TRIGLYCERIDES-OUT SIDE LAB OUTSIDE LAB (SEE SCANNED REPORT) CHOLESTEROL-OUTSI DE LAB OUTSIDE LAB (SEE SCANNED REPORT) HDL-OUTSIDE LAB OUTS ANIBAL LAB (SEE SCANNED REPORT) CHOL/HDL RATIO-OUTSIDE LAB OUTSIDE LA B (SEE SCANNED REPORT) LDL (CALCULATED)-OUTS ANIBAL LAB OUTSIDE LAB (SEE SCANNED REPORT) LDL (DIRECT MEASURE)-OUTSIDE LAB OUTSIDE LAB (SEE SCANNED REPORT) HEMOGLOBIN, I9S-AHCNKQE LAB OUTSIDE LAB (SEE SCANNED REPORT) PHOSPHORUS-OUTSID E LAB OUTSIDE LAB (SEE SCANNED REPORT) PTH-OUTSIDE LAB OUTS ANIBAL LAB (SEE SCANNED REPORT) MICROALBUMIN RATIO-OUTSIDE LAB OUTSIDE LA B (SEE SCANNED REPORT) PROTEIN, UA-OUTSIDE LAB OUTSIDE LAB (SEE SCANNED REPORT) HEMOGLOBIN-OUTSID E LAB 11.7 11.7 - 15.5 G/DL OUTSIDE LAB (SEE SCANNED REPORT) 11/10/2023 History Per Patient LABORATORY OUTSIDE LAB (SEE SCANNED REPORT) documented in this encounter Care Teams Weld Lay Out Worker Relationship Specialty Start Date End Date Zakia Amato MD [address] [place] [address] PCP - General Internal Medicine 05/05/21 documented as of this encounter
--- OUTSIDE RECORDS SUMMARY | 2023-12-03 03:16 | External Medical Summary | Summary of Care ---
Author Name Unknown Organization [facility] Address [address] [place] [address] Phone [phone] Care Team Providers Care Bobcat Driver/Labor Name Role Phone Zakia Amato MD Primary Care Provider Reason for Visit * Reason Comments Return Visit Encounter Details Date Type Department Care Team (Late st Contact Info) Description 10/21/2023 2:30 PM EST Office Visit Gynecology/Obstetric [facility] [address] [facility] [place] [address] Alida Shaffer, [address] [place] [address] Supervision of high risk in second trimester*; Hypothyroidism affecting in third trimester; Multigravida of advanced maternal age in third trimester Allergies Active Allergy Reactions Criticality Noted Date Comments Latex Other (Please comment) 11/01/2017 Sensitive Azithromycin 09/25/2008 documented as of this encounter (statuses as of 10/21/2023) Medications Medication Sig Dispensed Refills Start Date End Date Status Vit-Fe Jpr-BF-Mbnfy ( FORMULA) 28-0.8-235 MG CAPS Take by mouth. 0 Ac tive Levothyroxine Sodium 125 MCG Oral Tablet (Levoxyl) Take 1 Tablet by mouth in the morning. (at least 30 min prior to breakfast or other meds). 30 Tablet 5 09/12/2023 Active Vitamin B-12 1000 MCG Oral Tablet (Cyanocobalamin) Take 1 Tablet by mouth in the morning. 100 Tablet 1 09/20/2023 Active Abrysvo 120 MCG/0.5ML Intramuscular Solution Reconstituted (RSV Pre-Fusion F A&B Vac Rcmb) Inject 0.5 mL into a large muscle once for 1 dose. 0.5 mL 0 10/21/2023 10/21/2023 Active documented as of this encounter (statuses as of 10/21/2023) Active Problems Problem Noted Date Diagnosed Date Iron deficiency anemia 09/20/2023 Anemia in 09/14/2023 Supervision of high risk in [facility] 06/03/2023 AMA (advanced maternal age) multigravida [...] Thyroid nodule diagnosed 2013. Biopsied at [place], benign. Last ultrasound 04/2020 noted calcifications, moderately [...] For now, will plan no follow-up with [facility]. However, if she continues to require ongoing adjustments may need to consider follow-up to assess growth. H/O Sarah thyroiditis 11/01/2017 Acquired hypothyroidism 11/01/2017 Irritable bowel syndrome Estimated Date of Delivery Comme nts Yes 11/28/2023 Based on Ultraso und documented as of this encounter (statuses as of 10/21/2023) Resolved Problems Problem Noted Date Diagnosed Date Resolved Date Subchorionic hemorrhage in first trimester 08/08/2020 08/15/2020 Supervision of normal first 07/09/2020 08/15/2020 AMA (advanced maternal age) primigravida 35+ 0 08/15/2020 Backache 07/08/2020 Overview: wears orthotics and exercises documented as of this encounter (statuses as of 10/21/2023) Immunizations Name Administration Dates Next Due COVID-19 [...] money to get more. Never true 06/28/2023 [place] Depression Scale Answer Date Recorded [place] Depression Scale Total 2 09/23/2023 The thought [...] Sign Reading Time Taken Comments Blood Pressure 108/76 10/21/2023 2:24 PM EST Pulse - - Temperature - - Respiratory Rate - - Oxygen Saturation - - Inhaled Oxygen Concentration - - Weight 79.4 kg (175 lb) 10/21/2023 2:24 PM EST Height 167.6 cm (5' 6") 10/21/2023 2:24 PM EST Body Mass Index 28.25 10/21/2023 2:24 PM EST documented in this encounter Progress Notes * Alida Shaffer CNM - 10/21/2023 2:59 PM EST Kimberly Arrington is a 38 year old female here for her routine OB appointment at 34w4d Her Estimated Date of Delivery: 11/28/23 REVIEW OF SYSTEMS: She affirms movement. Denies vaginal bleeding, LOF, contractions, N/V, headaches, vision changes, and RUQ pain. PHYSICAL EXAM: Filed Vitals: 10/21/23 1424 BP: 108/76 Weight: 79.4 kg (175 lb) Height: 1.676 m (5' 6") +FHT 110-120bpm Fundal height: 34cm ASSESSMENT/PLAN: (O99.280, E03.9) Hypothyroidism affecting Plan: -Repeat TSH ordered -Taking 125mcg levothyroxine daily (O09.529) AMA (advanced maternal age) multigravida 35+ (O09.92) Supervision of high risk in second trimester Plan: -recommended RSV vaccine and discussed risk of labor; patient considering waiting until hernext visit to get RSV vaccine -position check US to be done at next visit; encouraged spinning babies exercises - discussed GBS and to expect swab to be completed at next visit - labor precautions and kick counts reviewed -Position check at next visit - RTO in 2 weeks Alida Shaffer CNM documented in this encounter Nursing Notes * Marta Rodriguez LPN - 10/21/2023 2:30 PM EST 34w4d Would like RSV vaccine today. Has completed IV iron. Needs labs printed to take to [facility]. documented in this encounter Plan of Treatment Upcoming Encounters Date Type Department Care Team (Late st Contact Info) Description 11/04/2023 1:15 PM EST Imaging Radiology [facility] [address] [place] [address] 11/04/2023 2:15 PM EST Office Visit Gynecology/Obstetrics [facility] [address] [place] [address] Meggan Diaz CRNP [address] [place] [address] 11/09/2023 9:30 AM EST Office Visit Gynecology/Obstetrics [facility] [address] [place] [address] Meggan Diaz CRNP [address] [place] [address] 11/11/2023 9:30 AM EST Pharmacy Pharmacy, [place] [address] [place] [address] Clinic, [facility] [address] [place] [address] 11/16/2023 1:45 PM EST Office Visit Gynecology/Obstetrics [facility] [address] [place] [address] Carmela Madrigal CRNP [address] [place] [address] 11/25/2023 2:30 PM EST Office Visit Gynecology/Obstetrics [facility] [address] [place] [address] Meggan Diaz CRNP [address] [place] [address] Scheduled Orders Name Type Priority Associated Diagnoses Orde r Schedule TSH WITH FREE T4 IF INDICATED Lab Routine Hypothyroidism affecting in third trimester Expected: 10/21/2023 (Approximate), Expires: 10/21/2024 US PREG LIMITED 1 OR MORE FETUSES Medical Imaging Routine Supervision of high risk in second trimester Expected: 11/04/2023, Expires: 11/21/2024 Health Maintenance Due Date Last Done Comments Hepatitis B (1 of 3 - 3-dose series) 1985 HPV/Co-Test 2015 Diabetes Screening 11/07/2022 11/07/2019 COVID-19 Vaccine (2022- season) 2023 12/08/2020, 11/13/2020 Depression Screening 07/08/2023 07/08/2022 Cervical Cancer Screening 08/07/2024 Pap Smear 08/07/2024 08/07/2021, 03/17, 03/29/2018 TSH 09/12/2024 09/12/2023, 11/0 12/2022, 07/14/2023, Additional history exists DTaP,Tdap,and Td [...] as of this encounter Visit Diagnoses Diagnosis Supervision of high risk in second trimester- Primary Unspecified high-risk Hypothyroidism affecting in third trimester Multigravida of advanced maternal age in third trimester documented in this encounter Care Teams Bobcat Driver/Labor Relationship Specialty Start Date End Date Zakia Amato MD [address] [place] [address] PCP - General Internal Medicine 05/05/21 documented as of this encounter
--- OUTSIDE RECORDS SUMMARY | 2023-12-03 03:16 | External Medical Summary | Summary of Care ---
Author Name Unknown Organization [facility] Address [address] [place] [address] Phone [phone] Care Team Providers Care Breast Trimmer Name Role Phone Zakia Amato MD Primary Care Provider Encounter Details Date Type Department Care Team (Late st Contact Info) Description 11/01/2023 Telephone Gynecology/Obstetrics [facility] [address] [place] [address] Alida Shaffer, [facility]ALLIKA [address] [facility] [address] Allergies Active Allergy Reactions Criticality Noted Date Comments Latex Other (Please comment) 11/01/2017 Sensitive Azithromycin 09/25/2008 documented as of this encounter (statuses as of 11/04/2023) Medications Medication Sig Dispensed Refills Start Date End Date Status Vit-Fe Aze-XQ-Ffozg ( FORMULA) 28-0.8-235 MG CAPS Take by [...] in 09/14/2023 Supervision of high risk in [facility] 06/03/2023 AMA (advanced maternal age) multigravida [...] Overview: Thyroid nodule diagnosed 2013. Biopsied at [place], benign. Last ultrasound 04/2020 noted calcifications, moderately [...] money to get more. Never true 06/28/2023 [place] Depression Scale Answer Date Recorded [place] Depression Scale Total 2 09/23/2023 The thought [...] encounter Miscellaneous Notes * Telephone Encounter - Florinda Holland LPN - 11/01/2023 9:14 AM EST ----- Message from Alida Shaffer CNM sent at 11/01/2023 8:48 AM EST ----- Please let patient know her TSH was normal at 0.71. She should continue her current levothyroxine dose. Thanks! Alida Shaffer CNM documented in this encounter Plan of Treatment Upcoming Encounters Date Type Department Care Team (Late st Contact Info) Description 11/04/2023 1:15 PM EST Imaging Radiology [facility] [address] [place] [address] 11/04/2023 2:15 PM EST Office Visit Gynecology/Obstetrics [facility] [address] [place] [address] Meggan Diaz CRNP [address] [place] [address] 11/09/2023 9:30 AM EST Office Visit Gynecology/Obstetrics [facility] [address] [place] [address] Meggan Diaz CRNP [address] [place] [address] 11/11/2023 9:30 AM EST Pharmacy Pharmacy, [facility] [address] [place], [place] [id number] Clinic, [facility] [address] [place], [place] [id number] 11/16/2023 1:45 PM EST Office Visit Gynecology/Obstetrics [facility] [address] [place] [address] Carmela Madrigal CRNP [address] [place] [address] 11/25/2023 2:30 PM EST Office Visit Gynecology/Obstetrics [facility] [address] [place] [address] Meggan Diaz CRNP [address] [place] [address] Health Maintenance Due Date Last Done Comments [...] filedocumented as of this encounter Care Teams Breast Trimmer Relationship Specialty Start Date End Date Zakia Amato MD [address] [place] [address] PCP - General Internal Medicine 05/05/21 documented as of this encounter
--- OUTSIDE RECORDS SUMMARY | 2023-12-03 03:16 | External Medical Summary | Summary of Care ---
Author Name Unknown Organization [facility] Address [address] [place] [address] Phone [phone] Care Team Providers Care Painter And Decorator Name Role Phone Zakia Amato MD Primary Care Provider Reason for Visit * Reason Comments Return Visit Encounter Details Date Type Department Care Team (Late st Contact Info) Description 11/04/2023 2:15 PM EST Office Visit Gynecology/Obstetric s [facility] [address] [place] [address] Meggan Diaz CRNP [address] [place] [address] Multigravida of advanced maternal age in third trimester*; Hypothyroidism affecting in third trimester; Supervision of high risk in second trimester Allergies Active Allergy Reactions Criticality Noted Date Comments Latex Other (Please comment) 11/01/2017 Sensitive Azithromycin 09/25/2008 documented as of this encounter (statuses as of 11/04/2023) Medications Medication Sig Dispensed Refills Start Date End Date Status Vit-Fe Sdf-YI-Bzqxc ( FORMULA) 28-0.8-235 MG CAPS Take by [...] 09/14/2023 Supervision of high risk in [facility] 06/03/2023 AMA (advanced maternal age) multigravida [...] Overview: Thyroid nodule diagnosed 2013. Biopsied at [place], benign. Last ultrasound 04/2020 noted calcifications, moderately [...] For now, will plan no follow-up with [facility]. However, if she continues to require [...] money to get more. Never true 06/28/2023 [place] Depression Scale Answer Date Recorded [place] Depression Scale Total 2 09/23/2023 The thought [...] U/s today confirming vertex position. GBS done Product Controller Documentation Provider requested life enrichment specialist. Name of life enrichment specialist: MARCELA Mccollum documented in this encounter Nursing Notes * Charity Jones LPN - 11/04/2023 1:42 PM EST 36w4d Had position check today Vertex HR 122 documented in this encounter Plan of Treatment Upcoming Encounters Date Type Department Care Team (Late st Contact Info) Description 11/09/2023 9:30 AM EST Office Visit Gynecology/Obstetrics [facility] [address] [place] [address] Meggan Diaz CRNP [address] [place] [address] 11/11/2023 9:30 AM EST Pharmacy Pharmacy, [place] [address] [place] [address] Clinic, [facility] [address] [facility] [place] [address] 11/16/2023 1:45 PM EST Office Visit Gynecology/Obstetrics [facility] [address] [facility] [place] [address] Carmlea Madrigal CRNP [address] [place] [address] 11/25/2023 2:30 PM EST Office Visit Gynecology/Obstetrics [facility] [address] [place] [address] Meggan Diaz CRNP [address] [place] [address] Pending Results Name Type Priority Associated Diagnoses Date /Time GROUP B STREP CULTURE/PCR Lab Routine Hypothyroidism affecting in third trimester 11/04/2023 2:29 PM EST Scheduled Orders Name Type Priority Associated Diagnoses [...] high-risk documented in this encounter Care Teams Painter And Decorator Relationship Specialty Start Date End Date Zakia Amato MD [address] [place] [address] PCP - General Internal Medicine 05/05/21 documented as of this encounter
--- OUTSIDE RECORDS SUMMARY | 2023-12-03 03:16 | External Medical Summary | Summary of Care ---
Author Name Unknown Organization [facility] Address [address] [place] [address] Phone [phone] Care Team Providers Care Evening Sitter Name Role Phone Zakia Amato MD Primary Care Provider Reason for Visit * Reason Comments Return Visit Encounter Details Date Type Department Care Team (Latest Contact Info) Description 11/09/2023 9:30 AM EST Office Visit Gynecology/Obstetri [facility] [address] [place] [address] Meggan Diaz CRNP [address] [place] [address] Hypothyroidism affecting , antepartum*; Multigravida of advanced maternal age in third trimester; Supervision of high risk in third trimester Allergies Active Allergy Reactions Criticality Noted Date Comments Latex Other (Please comment) 11/01/2017 Sensitive Azithromycin 09/25/2008 documented as of this encounter (statuses as of 11/09/2023) Medications Medication Sig Dispensed Refills Start Date End Date Status Vit-Fe Ebr-EI-Avouy ( FORMULA) 28-0.8-235 MG CAPS Take by [...] as of this encounter (statuses as of 11/09/2023) Active Problems Problem Noted Date Diagnosed Date Iron deficiency anemia 09/20/2023 Anemia in 09/14/2023 [facility] 06/03/2023 AMA (advanced maternal age) multigravida 35+ [...] Overview: Thyroid nodule diagnosed 2013. Biopsied at [place], benign. Last ultrasound 04/2020 noted calcifications, moderately [...] For now, will plan no follow-up with [facility]. However, if she continues to require ongoing adjustments may need to consider follow-up to assess growth. H/O Sarah thyroiditis 11/01/2017 Acquired hypothyroidism 11/01/2017 Irritable bowel syndrome Estimated Date of Delivery Comme nts Yes 11/28/2023 Based on Ultraso und documented as of this encounter (statuses as of 11/09/2023) Resolved Problems Problem Noted Date Diagnosed Date Resolved Date Subchorionic hemorrhage in first trimester 08/08/2020 08/15/2020 Supervision of normal first 07/09/2020 08/15/2020 AMA (advanced maternal age) primigravida 35+ 0 08/15/2020 Backache 07/08/2020 Overview: wears orthotics and exercises documented as of this encounter (statuses as of 11/09/2023) Immunizations Name Administration Dates Next Due COVID-19 [...] money to get more. Never true 06/28/2023 [place] Depression Scale Answer Date Recorded [place] Depression Scale Total 2 09/23/2023 The thought [...] Sign Reading Time Taken Comments Blood Pressure 112/64 11/09/2023 9:40 AM EST Pulse - - Temperature - - Respiratory Rate - - Oxygen Saturation - - Inhaled Oxygen Concentration - - Weight - - Height 167.6 cm (5' 6") 11/09/2023 9:40 AM EST Body Mass Index - - documented in this encounter Progress Notes * Meggan Diaz CRNP - 11/09/2023 9:49 AM EST 37w2d Has a cold, but feeling ok otherwise. Baby is active. No contractions, bleeding, or LOF. MARCELA Mcmahon documented in this encounter Nursing Notes * Charity Jones LPN - 11/09/2023 9:38 AM EST 37w2d Denies any issues documented in this encounter Plan of Treatment Upcoming Encounters Date Type Department Care Team (Late st Contact Info) Description 11/11/2023 9:30 AM EST Pharmacy Pharmacy, [place] [address] [facility] [place] [address] Clinic, [facility] [address] [facility] [place] [address] 11/16/2023 1:45 PM EST [facility] [address] [place] [address] Carmela Madrigal CRNP [address] [place] [address] 11/25/2023 2:30 PM EST Office Visit Gynecology/Obstetrics [facility] [address] [place] [address] Meggan Diaz CRNP [address] [place] [address] Health Maintenance Due Date Last Done Comments [...] this encounter Visit Diagnoses Diagnosis Hypothyroidism affecting , antepartum- Primary Multigravida of advanced maternal age in third trimester Supervision of high risk in third trimester Unspecified high-risk documented in this encounter Care Teams Evening Sitter Relationship Specialty Start Date End Date Zakia Amato MD [address] [place] [address] PCP - General Internal Medicine 05/05/21 documented as of this encounter
--- OUTSIDE RECORDS SUMMARY | 2023-12-03 03:16 | External Medical Summary | Summary of Care ---
Author Name Unknown Organization [facility] Address [address] [place] [address] Phone [phone] Care Team Providers Care Media Executive Name Role Phone Zakia Amato MD Primary Care Provider Reason for Visit * Reason Comments Return Visit Encounter Details Date Type Department Care Team (Late st Contact Info) Description 11/25/2023 2:30 PM EST Office Visit Gynecology/Obstetric s [facility] [address] [place] [address] Meggan Diaz CRNP [address] [place] [address] Multigravida of advanced maternal age in third trimester*; Hypothyroidism affecting in third trimester; Supervision of high risk in third trimester; Antepartum anemia Allergies Active Allergy Reactions Criticality Noted Date Comments Latex Other (Please comment) 11/01/2017 Sensitive Azithromycin 09/25/2008 documented as of this encounter (statuses as of 11/25/2023) Medications Medication Sig Dispensed Refills Start Date End Date Status Vit-Fe Hnm-NI-Rfmgl ( FORMULA) 28-0.8-235 MG CAPS Take by [...] Thyroid nodule diagnosed 2013. Biopsied at [place], benign. Last ultrasound 04/2020 noted calcifications, moderately [...] For now, will plan no follow-up with [facility]. However, if she continues to [...] money to get more. Never true 06/28/2023 [place] Depression Scale Answer Date Recorded [place] Depression Scale Total 2 09/23/2023 The thought [...] Sign Reading Time Taken Comments Blood Pressure 120/76 11/25/2023 2:34 PM EST Pulse - - Temperature - - Respiratory Rate - - Oxygen Saturation - - Inhaled Oxygen Concentration - - Weight - - Height 167.6 cm (5' 6") 11/25/2023 2:34 PM EST Body Mass Index - - documented in this encounter Progress Notes * Meggan Diaz CRNP - 11/25/2023 2:50 PM EST 39w4d No concerns. Would like to schedule IOL. Baby is moving well. No contractions or bleeding. FHR 104-107bpm with doppler. NST today ASSESSMENT assessment with Non-stress Test completed on 11/25/2023 at 39.4weeks gestation for indication of bradycardia heart baseline: 110 bpm, baseline change to 120bpm Variability: Moderate Decelerations: absent Accelerations: present Contractions: None NST start time: 1449 NST stop time: 1522 NST strip reviewed, interpreted, and approved by OB provider, MARCELA Mcmahon . NST strip stored in clinic storage file * Charity Jones LPN - 11/25/2023 2:34 PM EST 39w4d Discuss plan documented in this encounter Plan of Treatment Upcoming Encounters Date Type Department Care Team (Late st Contact Info) Description 11/30/2023 8:45 AM EST Office Visit Gynecology/Obstetrics [address] [place] [address] Martin Mederos MD [address] [place] [address] Health Maintenance Due Date Last Done Comments [...] high risk in third trimester Unspecified high-risk Antepartum anemia Anemia, antepartum documented in this encounter Care Teams Media Executive Relationship Specialty Start Date End Date Zakia Amato MD [address] [place] [address] PCP - General Internal Medicine 05/05/21 documented as of this encounter
--- OUTSIDE RECORDS SUMMARY | 2023-12-03 03:16 | External Medical Summary | Summary of Care ---
Author Name Unknown Organization [facility] Address [address] [place] [facility] [place] [facility] [place] [place] [address] Phone [phone] Care Team Providers Care Boiler/Chiller Technician Name Role Phone Zakia Amato MD Primary Care Provider Reason for Visit * Reason Comments Return Visit Encounter Details Date Type Department Care Team (Late st Contact Info) Description 11/16/2023 1:45 PM EST Office Visit Gynecology/Obstetric s [facility] [address] [place] [address] Carmela Madrigal CRNP [address] [place] [address] Supervision of high risk in third trimester*; Hypothyroidism affecting in third trimester; Multigravida of advanced maternal age in third trimester; Anemia during in third trimester; bradycardia, antepartum condition or complication Allergies Active Allergy Reactions Criticality Noted Date Comments Latex Other (Please comment) 11/01/2017 Sensitive Azithromycin 09/25/2008 documented as of this encounter (statuses as of 11/16/2023) Medications Medication Sig Dispensed Refills Start Date End Date Status Vit-Fe Byx-SF-Jnbxw ( FORMULA) 28-0.8-235 MG CAPS Take by [...] as of this encounter (statuses as of 11/16/2023) Active Problems Problem Noted Date Diagnosed Date [...] Overview: Thyroid nodule diagnosed 2013. Biopsied at [place], benign. Last ultrasound 04/2020 noted calcifications, moderately [...] as of this encounter (statuses as of 11/16/2023) Resolved Problems Problem Noted Date Diagnosed Date Resolved Date Subchorionic hemorrhage in first trimester 08/08/2020 08/15/2020 Supervision of normal first 07/09/2020 08/15/2020 AMA (advanced maternal age) primigravida 35+ 0 08/15/2020 Backache 07/08/2020 Overview: wears orthotics and exercises documented as of this encounter (statuses as of 11/16/2023) Immunizations Name Administration Dates Next Due COVID-19 [...] Date Smoking Tobacco: Never Smokeless Tobacco: Never Tobacco Cessation:Counseling Given: Not Answered Alcohol Use Standard Drinks/Week Comments Not Currently [...] money to get more. Never true 06/28/2023 [place] Depression Scale Answer Date Recorded [place] Depression Scale Total 2 09/23/2023 The thought [...] Sign Reading Time Taken Comments Blood Pressure 112/76 11/16/2023 1:43 PM EST Pulse - - Temperature - - Respiratory Rate - - Oxygen Saturation - - Inhaled Oxygen Concentration - - Weight 79.5 kg (175 lb 3.2 oz) 11/16/2023 1:43 P M EST Height 167.6 cm (5' 6") 11/16/2023 1:43 PM EST Body Mass Index 28.28 11/16/2023 1:43 PM EST documented in this encounter Progress Notes * Carmela Madrigal CRNP - 11/16/2023 1:48 PM EST 38w2d No regular ctx. No leaking/bleeding. Baby moving well. Discussed repeat CBC, anemia improved. FHR 100s-110s with doppler, NST reactive. BPP 8/8. Discussed movement and FHR patterns. She has labor instructions. 1 week return ASSESSMENT assessment with Non-stress Test completed on 11/16/2023 at 38.2 weeks gestation for indicationof low FHR with auscultation heart baseline: 110 bpm Variability: Moderate Decelerations: absent Accelerations: present Contractions: Present rarely NST start time: 1358 NST stop time: 1430 NST strip reviewed, interpreted, and approved by OB provider, MARCELA Jordan. NST strip stored in clinic storage file MARCELA Jordan documented in this encounter Nursing Notes * Radha Gordon RN - 11/16/2023 1:43 PM EST Patient here for MARYANN 38w2d Patient has questions about recent iron lab Radha Gordon, RN documented in this encounter Plan of Treatment Upcoming Encounters Date Type Department Care Team (Late st Contact Info) Description 11/25/2023 2:30 PM EST Office Visit Gynecology/Obstetrics [facility] [address] [place] [address] Meggan Diaz CRNP [address] [place] [address] Pending Results Name Type Priority Associated Diagnoses Date /Time US BPP W/O NON-STRESS TEST Medical Imaging Routine bradycardia, antepartum condition or complication 11/16/2023 3:29 PM EST Scheduled Orders Name Type Priority Associated Diagnoses Orde r Schedule US BPP W/O NON-STRESS TEST Medical Imaging Routine bradycardia, antepartum condition or complication Expected: 11/16/2023 (Approximate), Expires: 12/14/2024 Health Maintenance Due Date Last Done Comments [...] Diagnoses Diagnosis Supervision of high risk in third trimester- Primary Unspecified high-risk Hypothyroidism affecting in third trimester Multigravida of advanced maternal age in third trimester Anemia during in third trimester bradycardia, antepartum condition or complication Abnormality in heart rate/rhythm, antepartum condition or complication documented in this encounter Care Teams Boiler/Chiller Technician Relationship Specialty Start Date End Date Zakia Amato MD [address] [place] [address] PCP - General Internal Medicine 05/05/21 documented as of this encounter
--- OUTSIDE RECORDS SUMMARY | 2023-12-03 03:16 | External Medical Summary ---
Author Name Unknown Address Unknown Organization K01:[facility] - [address] [facility] [address] Laboratory Report Ordering Provider Test Date Status FIORELLA HARRIS 11/04/2023 14:29:47 Final Observation Date Value Abnormality Reference (Units ) Status Streptococcus agalactiae DNA [Presence] in Specimen by SIRI with probe detection 11/04/2023 14:29:47 Negative Negative Final No Group B Streptococcus det ected by culture-enhanced PCR (amplified probe).
The collection of vaginal/rectal swab specimen combinations (FDA approved specimen type) is optimal for the detection of Group B Streptococcus. Single source collection (vaginal only or rectal only) or alternate specimen sources may lead to false negative results. Performing Location [facility] - [address] [place] [address]
--- OUTSIDE RECORDS SUMMARY | 2023-12-03 03:17 | External Medical Summary | Summary of Care ---
Author Name Unknown Organization [facility] Address [address] [place] [address] Phone [phone] Care Team Providers Care Management Planner Name Role Phone Zakia Amato MD Primary Care Provider Reason for Visit * Reason Comments Return Visit Encounter Details Date Type Department Care Team (Late st Contact Info) Description 10/07/2023 2:45 PM EST Office Visit Gynecology/Obstetric s [facility] [address] [place] [address] Meggan Diaz CRNP [address] [place] [address] Multigravida of advanced maternal age in third trimester*; Hypothyroidism affecting in third trimester; Supervision of high risk in second trimester Allergies Active Allergy Reactions Criticality Noted Date Comments Latex Other (Please comment) 11/01/2017 Sensitive Azithromycin 09/25/2008 documented as of this encounter (statuses as of 10/07/2023) Medications Medication Sig Dispensed Refills Start Date End Date Status Vit-Fe Rwo-CJ-Xvpwr ( FORMULA) 28-0.8-235 MG CAPS Take by [...] as of this encounter (statuses as of 10/07/2023) Active Problems Problem Noted Date Diagnosed Date Iron deficiency anemia 09/20/2023 Anemia in 09/14/2023 Supervision of high risk in second [facility] 06/03/2023 AMA (advanced maternal age) [...] Overview: Thyroid nodule diagnosed 2013. Biopsied at [place], benign. Last ultrasound 04/2020 noted calcifications, moderately [...] For now, will plan no follow-up with [facility]. However, if she continues to require ongoing adjustments may need to consider follow-up to assess growth. H/O Sarah thyroiditis 11/01/2017 Acquired hypothyroidism 11/01/2017 Irritable bowel syndrome Estimated Date of Delivery Comme nts Yes 11/28/2023 Based on Ultraso und documented as of this encounter (statuses as of 10/07/2023) Resolved Problems Problem Noted Date Diagnosed Date Resolved Date Subchorionic hemorrhage in first trimester 08/08/2020 08/15/2020 Supervision of normal first 07/09/2020 08/15/2020 AMA (advanced maternal age) primigravida 35+ 0 08/15/2020 Backache 07/08/2020 Overview: wears orthotics and exercises documented as of this encounter (statuses as of 10/07/2023) Immunizations Name Administration Dates Next Due COVID-19 [...] money to get more. Never true 06/28/2023 [place] Depression Scale Answer Date Recorded [place] Depression Scale Total 2 09/23/2023 The thought [...] Reading Time Taken Comments Blood Pressure 110/68 10/07/2023 2:43 PM EST Pulse - - Temperature - - Respiratory Rate - - Oxygen Saturation - - Inhaled Oxygen Concentration - - Weight 78.9 kg (174 lb) 10/07/2023 2:43 PM EST Height 167.6 cm (5' 6") 10/07/2023 2:43 PM EST Body Mass Index 28.08 10/07/2023 2:43 PM EST documented in this encounter Progress Notes * Meggan Diaz CRNP - 10/07/2023 2:56 PM EST 32w4d Having heartburn and carpal tunnel. No other concerns. Baby is active. No contractions, bleeding, or LOF. RSV vaccine with next visit. MARCELA Mcmahon * Charity Jones LPN - 10/07/2023 2:43 PM EST 32w4d Heartburn documented in this encounter Plan of Treatment Upcoming Encounters Date Type Department Care Team (Late st Contact Info) Description 10/13/2023 2:30 PM EST Hem/Onc Treatment Hematology/Oncology Treatment, [place] [address] [place] [address] Gayatri, Chair 8 Hem Onc Scenery [address] [place] [address] 10/18/2023 1:30 PM EST Pharmacy Pharmacy, [place] [address] [place] [address] Clinic, [facility] [address] [place] [address] 10/21/2023 2:30 PM EST Office Visit Gynecology/Obstetrics [facility] [address] [facility] [place] [address] Alida Shaffer, [facility] [address] [place] [address] 11/04/2023 2:15 PM EST Office Visit Gynecology/Obstetrics [facility] [address] [facility] [place] [place] [address] Meggan Diaz CRNP [address] [place] [address] Health Maintenance Due Date Last Done Comments [...] high-risk documented in this encounter Care Teams Management Planner Relationship Specialty Start Date End Date Zakia Amato MD [address] [place] [address] PCP - General Internal Medicine 05/05/21 documented as of this encounter
--- OUTSIDE RECORDS SUMMARY | 2023-12-03 03:17 | External Medical Summary | Summary of Care ---
Author Name Unknown Organization [facility] Address [address] [place] [address] Phone [phone] Care Team Providers Care Lace Stripper Name Role Phone Zakia Amato MD Primary Care Provider Reason for Referral * Evaluate & Treat - Unlimited Visits (Within 10 days (routine)) - Pending Review Specialty Diagnoses / Procedures Referred By Contac t Referred To Contact Pharmacist / Pharmacy Diagnoses TONYA (iron deficiency anemia) Meggan Diaz CRNP [address] [place] [address] Referral ID Status Reason Start Date Expiration Date Visits Requested Visits Authorized [id number] Pending Review Specialty Services Required 3 99 99 Question Answer Referral Priority Within 10 days (routine) Where should this appointment be scheduled? [facility] Department: Specialist Specialty: it quality assurance analyst Reason for Referral: Anemia Comments Pharmacist Medication Therapy Management: Iron Deficiency Anemia Sandy Morelos RN Reason for Visit * Reason Onset Date Comments Blood Management Program 09/14/2023 Encounter Details Date Type Department Care Team (Late st Contact Info) Description 09/14/2023 Telephone Patient Blood Management, [place] [address] [place] [address] Meggan Diaz CRNP [address] [place] [address] Blood Management Program Allergies Active Allergy Reactions Criticality Noted Date Comments Latex Other (Please comment) 11/01/2017 Sensitive Azithromycin 09/25/2008 documented as of this encounter (statuses as of 09/22/2023) Medications Medication Sig Dispensed Refills Start Date End Date Status Vit-Fe Nhw-YL-Zdapg ( FORMULA) 28-0.8-235 MG CAPS Take by mouth. 0 Ac tive Levothyroxine Sodium 125 MCG Oral Tablet (Levoxyl) Take 1 Tablet by mouth in the morning. (at least 30 min prior to breakfast or other meds). 30 Tablet 5 09/12/2023 Active documented as of this encounter (statuses as of 09/22/2023) Active Problems Problem Noted Date Diagnosed Date Iron deficiency anemia 09/20/2023 Anemia in 09/14/2023 Supervision of high risk in [facility] 06/03/2023 AMA (advanced maternal age) [...] Overview: Thyroid nodule diagnosed 2013. Biopsied at [place], benign. Last ultrasound 04/2020 noted calcifications, moderately [...] as of this encounter (statuses as of 09/22/2023) Resolved Problems Problem Noted Date Diagnosed Date Resolved Date Subchorionic hemorrhage in first trimester 08/08/2020 08/15/2020 Supervision of normal first 07/09/2020 08/15/2020 AMA (advanced maternal age) primigravida 35+ 0 08/15/2020 Backache 07/08/2020 Overview: wears orthotics and exercises documented as of this encounter (statuses as of 09/22/2023) Immunizations Name Administration Dates Next Due COVID-19 mRNA, LNP-s, No Pre serve, 2-Dose Series (Moderna) 12/08/2020,11/13/2020 SEASONAL INFLUENZA, PF, 6 M & Above, IM , (FLULAVAL or FLUZONE) 06/29/2023,07/08/2022,08/08/2020 TDAP (age 10 and older)(Boostrix) 09/06/2023, [...] money to get more. Never true 06/28/2023 [place] Depression Scale Answer Date Recorded [place] Depression Scale Total 0 04/27/2023 The thought of harming myself has occurred to me . Never 04/27/2023 Estimated Date of Delivery Comme nts Yes [...] encounter Miscellaneous Notes * Telephone Encounter - Liana Ramey RN - 09/22/2023 8:35 AM EST [place] plan built and routed for signature. Prior auth not needed for venofer. Can be scheduled once [place] plan is signed. * Telephone Encounter - Sandy Morelos RN - 09/14/2023 4:01 PM EST Recommend IV iron per OB MTM protocol. Patient agreeable to infusions at [facility]. documented in this encounter Plan of Treatment Upcoming Encounters Date Type Department Care Team (Late st Contact Info) Description 09/23/2023 3:00 PM EST [facility] [address] [place] [address] Martin Mederos MD [address] [place] [address] 09/27/2023 10:00 AM EST Pharmacy Pharmacy, [address] [place] [address] Clinic, Anemia [address] [place] [address] Scheduled Referrals Name Type Priority Associated Diagnoses Orde r Schedule PHARMACIST MEDS THERAPY MGMT REFERRAL OP Referral Within 10 days (routine) TONYA (iron deficiency anemia) Ordered: 09/14/2023 Health Maintenance Due Date Last [...] as of this encounter Visit Diagnoses Diagnosis TONYA (iron deficiency anemia)- Primary Iron deficiency anemia, unspecified documented in this encounter Care Teams Lace Stripper Relationship Specialty Start Date End Date Zakia Amato MD [address] [place] [address] PCP - General Internal Medicine 05/05/21 documented as of this encounter
--- OUTSIDE RECORDS SUMMARY | 2023-12-03 03:17 | External Medical Summary | Summary of Care ---
Author Name Unknown Organization [facility] Address [address] [place] [address] Phone [phone] Care Team Providers Care Knot Tier Name Role Phone Zakia mAato MD Primary Care Provider Reason for Visit * Reason Comments Infusion Venofer 2/3 Encounter Details Date Type Department Care Team (Latest Contact Info) Description 10/06/2023 10:30 AM EST Hem/Onc Treatment Hematology/Oncology Treatment, [place] [address] [place] [address] Gayatri, Chair 11 Hem Onc Scenery [address] [place] [address] Iron deficiency anemia, unspecified iron deficiency anemia type* Allergies Active Allergy Reactions Criticality Noted Date Comments Latex Other (Please comment) 11/01/2017 Sensitive Azithromycin 09/25/2008 documented as of this encounter (statuses as of 10/06/2023) Medications Medication Sig Dispensed Refills Start Date End Date Status Vit-Fe Pse-TR-Ofbzd ( FORMULA) 28-0.8-235 MG CAPS Take by [...] as of this encounter (statuses as of 10/06/2023) Active Problems Problem Noted Date Diagnosed Date Iron deficiency anemia 09/20/2023 Anemia in 09/14/2023 Supervision of high risk in [facility] 06/03/2023 AMA (advanced maternal age) multigravida [...] Overview: Thyroid nodule diagnosed 2013. Biopsied at [place], benign. Last ultrasound 04/2020 noted calcifications, moderately [...] as of this encounter (statuses as of 10/06/2023) Resolved Problems Problem Noted Date Diagnosed Date Resolved Date Subchorionic hemorrhage in first trimester 08/08/2020 08/15/2020 Supervision of normal first 07/09/2020 08/15/2020 AMA (advanced maternal age) primigravida 35+ 0 08/15/2020 Backache 07/08/2020 Overview: wears orthotics and exercises documented as of this encounter (statuses as of 10/06/2023) Immunizations Name Administration Dates Next Due COVID-19 [...] money to get more. Never true 06/28/2023 [place] Depression Scale Answer Date Recorded [place] Depression Scale Total 2 09/23/2023 The thought [...] Sign Reading Time Taken Comments Blood Pressure 112/71 10/06/2023 10:44 AM EST Pulse 88 10/06/2023 10:44 AM EST Temperature 37.2 C (99 F) 10/06/2023 10:44 AM EST Respiratory Rate 18 10/06/2023 10:44 AM EST Oxygen Saturation 98% 10/06/2023 10:44 AM EST Inhaled Oxygen Concentration - - Weight - - Height - - Body Mass Index - - documented in this encounter Nursing Notes * Maribel Vasquez LPN - 10/06/2023 10:45 AM EST 1035: Chair 6. Pt arrived for Venofer 2/3 infusion. PIV in LFA. Pt tolerated well. VSS. No complaints at this time. 1215: Pt tolerated Venofer infusion well. PIV removed intact. Pt to return in one week. Discharged in stable condition. documented in this encounter Plan of Treatment Upcoming Encounters Date Type Department Care Team (Late st Contact Info) Description 10/07/2023 2:45 PM EST Office Visit Gynecology/Obstetrics [facility] [address] [place] [address] Meggan Diaz CRNP [address] [facility] [place] [address] 10/13/2023 2:30 PM EST Hem/Onc Treatment Hematology/Oncology Treatment, [place] [address] [place] [address] Gayatri Chair 8 Hem Onc Scenery [address] [place] [address] 10/18/2023 1:30 PM EST [facility] [place] [address] [facility] [address] Clinic, An[place] [address] [place] [address] 10/21/2023 2:30 PM EST Office Visit Gynecology/Obstetrics [facility] [address] [facility] [place] [address] [address] [place] [address] 11/04/2023 2:15 PM EST Office Visit Gynecology/Obstetrics [facility] [address] [facility] [place] [address] Meggan Diaz CRNP [address] [place] [address] Health Maintenance Due Date Last Done Comments Hepatitis B (1 of 3 - 3-dose series) 1985 HPV/Co-Test 2015 Diabetes Screening 11/07/2022 11/07/2019 COVID-19 Vaccine (3 2022-24 season) 2023 12/08/2020, 11/13/2020 Depression Screening 07/08/2023 [...] PRN Other, Hypersensitivity Reaction, Starting on Lala 10/06/23 at 1037, Until Tue10/07/23 at 1036, For 24 hours EPINEPHrine 1 MG/ML inj 0.3 mg 0.3 mg, Intramuscular, ONCE PRN Other, Hypersensitivity Reaction or Anaphylaxis, Starting on Lala 10/06/23 at 1037, Until Tue10/07/23 at 1036, For 24 hours hEParin 100 UNIT/ML Lock Flush inj 500 Units 500 Units (5 mL), IV Lock, PRN Other, IV Flush, Starting on Lala 10/06/23 at 1037, Until Tue10/07/23 at 1036, For 24 hours, Do not flush if lock, PICC, or central line not in place; IV infusing or unable to flush. Hydrocortisone Sod Suc (PF) (Solu-Cortef) inj 100 mg 100 mg, IV Push, ONCE PRN Other, Hypersensitivity Reaction, Starting on Tue10/06/23 at 1037, Until Tue10/07/23 at 1036, For 24 hours NSS infusion 500 mL, Intravenous, at 50 mL/hr, CONTINUOUS, Starting on Lala 10/06/23 at 1145, Until Tue10/06/23 at 2144 Start Infusion 10/06/2023 10:38 AM EST 500 mL 50 mL/hr oxygen GAS Inhalation, OXYGEN, First dose on Tue10/06/23 at 1115, Until Discontinued, Device/Managed by: Low Flow Device, [...] PRN Other, IV Flush, Starting on Lala 10/06/23 at 1037, Until Tue10/07/23 at 1036, For 24 hours, Do not flush if lock, PICC, or central line not in place; IV infusing or unable to flush. Inactive Administered Medications - up to 3 most recent administrations Medication Order MAR Action Action Date Dose Rate Site Iron Sucrose (Venofer) 300 mg in NSS 250 mL ivpb 300 mg, IV Piggyback, ONCE, 1 dose, On Lala 10/06/23 at 1215, Administer over 90 Minutes Start Infusion 10/06/2023 10:38 AM EST 300 mg 166.67 mL/hr documented in this encounter Care Teams Knot Tier Relationship Specialty Start Date End Date Zakia Amato MD [address] [place] [address] PCP - General Internal Medicine 05/05/21 documented as of this encounter
--- OUTSIDE RECORDS SUMMARY | 2023-12-03 03:17 | External Medical Summary | Summary of Care ---
Author Name Unknown Organization [facility] Address [address] [place] [address] Phone [phone] Care Team Providers Care Cloth Checker Name Role Phone Zakia Amato MD Primary Care Provider Reason for Referral * Evaluate & Treat - Unlimited Visits (Within 10 days (routine)) - Pending Review Specialty Diagnoses / Procedures Referred By Contac t Referred To Contact Pharmacist / Pharmacy Diagnoses TONYA (iron deficiency anemia) Meggan Diaz CRNP [address] [place] [address] Referral ID Status Reason Start Date Expiration Date Visits Requested Visits Authorized [id number] Pending Review Specialty Services Required 3 [phone] Question Answer Referral Priority Within 10 days (routine) Where should this appointment be scheduled? [facility] Department: Specialist Specialty: misdraw hand Reason for Referral: Anemia Comments Pharmacist Medication Therapy Management: Iron Deficiency Anemia Sandy Morelos RN Reason for Visit * Reason Onset Date Comments Blood Management Program 09/14/2023 Encounter Details Date Type Department Care Team (Late st Contact Info) Description 09/14/2023 Telephone Patient Blood Management, [place] [address] [place] [address] Meggan Diaz CRNP [address] [place] [address] Blood Management Program Allergies Active Allergy Reactions Criticality Noted Date Comments Latex Other (Please comment) 11/01/2017 Sensitive Azithromycin 09/25/2008 documented as of this encounter (statuses as of 09/23/2023) Medications Medication Sig Dispensed Refills Start Date End Date Status Vit-Fe Fii-GL-Mawvc ( FORMULA) 28-0.8-235 MG CAPS Take by mouth. 0 Ac tive Levothyroxine Sodium 125 MCG Oral Tablet (Levoxyl) Take 1 Tablet by mouth in the morning. (at least 30 min prior to breakfast or other meds). 30 Tablet 5 09/12/2023 Active documented as of this encounter (statuses as of 09/23/2023) Active Problems Problem Noted Date Diagnosed Date Iron deficiency anemia 09/20/2023 Anemia in 09/14/2023 Supervision of high risk in [facility] 06/03/2023 AMA (advanced maternal age) multigravida 35+ [...] Overview: Thyroid nodule diagnosed 2013. Biopsied at [place], benign. Last ultrasound 04/2020 noted calcifications, moderately [...] as of this encounter (statuses as of 09/23/2023) Resolved Problems Problem Noted Date Diagnosed Date Resolved Date Subchorionic hemorrhage in first trimester 08/08/2020 08/15/2020 Supervision of normal first 07/09/2020 08/15/2020 AMA (advanced maternal age) primigravida 35+ 0 08/15/2020 Backache 07/08/2020 Overview: wears orthotics and exercises documented as of this encounter (statuses as of 09/23/2023) Immunizations Name Administration Dates Next Due COVID-19 [...] money to get more. Never true 06/28/2023 [place] Depression Scale Answer Date Recorded [place] Depression Scale Total 0 04/27/2023 The thought [...] encounter Miscellaneous Notes * Telephone Encounter - Coty Song OSA - 09/23/2023 1:02 PM EST Spoke to patient, scheduled infusion 09/29/23 @ 10:30 am. * Telephone Encounter - Liana Ramey RN - 09/23/2023 11:42 AM EST [place] is signed. Scheduling: please call patient to schedule 2 hour appt "venofer 10/19" (Meggan Diaz). Thanks! Patient will need venofer once a week x3. * Telephone Encounter - Liana Ramey RN - 09/22/2023 8:35 AM EST [place] plan built and routed for signature. Prior auth not needed for venofer. Can be scheduled once [facility] plan is signed. * Telephone Encounter - Sandy Morelos RN - 09/14/2023 4:01 PM EST Recommend IV iron per OB MTM protocol. Patient agreeable to infusions at [facility]. documented in this encounter Plan of Treatment Upcoming Encounters Date Type Department Care Team (Late st Contact Info) Description 09/23/2023 3:00 PM EST Office Visit Gynecology/Obstetrics [facility] [address] [place] [address] Martin Mederos MD [address] [place] [address] 09/27/2023 10:00 AM EST [facility] [address] [place] [address] Clinic, [place] [address] [place] [address] 09/29/2023 10:30 AM EST Hem/Onc Treatment Hematology/Oncology Treatment, [address] [address] Gayatri, Chair [address] [address] Scheduled Referrals Name Type Priority Associated Diagnoses [...] unspecified documented in this encounter Care Teams Cloth Checker Relationship Specialty Start Date End Date Zakia Amato MD [address] [place] [address] PCP - General Internal Medicine 05/05/21 documented as of this encounter
--- OUTSIDE RECORDS SUMMARY | 2023-12-03 03:17 | External Medical Summary | Summary of Care ---
Author Name Unknown Organization [facility] Address [address] [place] [address] Phone [phone] Care Team Providers Care Hydraulic Barker Operator Name Role Phone Zakia Amato MD Primary Care Provider Reason for Visit * Reason Onset Date Comments Anemia Follow-Up 09/20/2023 * Evaluate & Treat - Unlimited Visits (Within 10 days (routine)) - Pending Review Specialty Diagnoses / Procedures Referred By Contac t Referred To Contact Pharmacist / Pharmacy Diagnoses TONYA (iron deficiency anemia) Meggan Diaz CRNP [address] [place] [address] Referral ID Status Reason Start Date Expiration Date Visits Requested Visits Authorized [id number] Pending Review Specialty Services Required 3 [phone] Encounter Details Date Type Department Care Team (Late st Contact Info) Description 09/20/2023 4:00 PM [facility] Pharm[facility] Pharmacy, [place] [address] [place], [place] [id number] Clinic, Anemia [address] [place] [address] Iron deficiency anemia, unspecified iron deficiency anemia type* Allergies Active Allergy Reactions Criticality Noted Date Comments Latex Other (Please comment) 11/01/2017 Sensitive Azithromycin 09/25/2008 documented as of this encounter (statuses as of 09/20/2023) Medications Medication Sig Dispensed Refills Start Date End Date Status Vit-Fe Due-LE-Yhtyb ( FORMULA) 28-0.8-235 MG CAPS Take by [...] as of this encounter (statuses as of 09/20/2023) Active Problems Problem Noted Date Diagnosed Date Iron deficiency anemia 09/20/2023 Anemia in 09/14/2023 Supervision of high risk in [facility] 06/03/2023 AMA (advanced maternal age) multigravida [...] Overview: Thyroid nodule diagnosed 2013. Biopsied at [place], benign. Last ultrasound 04/2020 noted calcifications, moderately [...] as of this encounter (statuses as of 09/20/2023) Resolved Problems Problem Noted Date Diagnosed Date Resolved Date Subchorionic hemorrhage in first trimester 08/08/2020 08/15/2020 Supervision of normal first 07/09/2020 08/15/2020 AMA (advanced maternal age) primigravida 35+ 0 08/15/2020 Backache 07/08/2020 Overview: wears orthotics and exercises documented as of this encounter (statuses as of 09/20/2023) Immunizations Name Administration Dates Next Due COVID-19 [...] money to get more. Never true 06/28/2023 [place] Depression Scale Answer Date Recorded [place] Depression Scale Total 0 04/27/2023 The thought [...] this encounter Progress Notes * Haylee Cam RPh - 09/20/2023 10:48 AM EST Patient referred by MARCELA Bryan for evaluation of anemia by the Anemia Clinic. Called patient to introduce role/clinic and to review labs from 09/12. Hgb: 10.2 g/dL TSAT: 17 % Ferritin: 36 ng/mL B12: 216 pg/mL FA: >20.0 ng/mL GA: 30w1d Estimated Date of Delivery: 11/28/23 Hgb is below target range for the third trimester. Iron studies within target range. B12 level below target range. FA level within target range. Patient reports feeling extra tired all of the time and otherwise denies signs/symptoms of anemia. Patient qualifies for IV iron repletion. Plan: Venofer 300 mg IV weekly x 3 doses at [facility]. Orders placed and routed to appropriate parties. Patient agreeable to intervention. B12 1000mcg daily sent to patient's pharmacy. Follow-up labs (CBCD, ferritin, iron screen, retic panel, B12, and FA) to be scheduled 4-6 weeks after iron repletion completed if appropriate prior to delivery. Anemia Clinic will continue to follow. Thank you for allowing us to participate in the care of thispatient. Thanks, Haylee Cam RPh Clinical Pharmacist [facility] Anemia Clinic (P: [phone]) 09/20/2023 10:52 AM documented in this encounter Plan of Treatment Upcoming Encounters Date Type Department Care Team (Late st Contact Info) Description 09/23/2023 3:00 PM EST Office Visit Gynecology/Obstetrics [facility] [place] [address] [place] [address] Martin Mederos MD [address] [place] [address] 09/27/2023 10:00 AM EST Pharmacy Pharmacy, [place] [address], [place] [id number] Clinic, [facility] [address] [place] [address] Health Maintenance Due Date Last Done Comments [...] Primary documented in this encounter Care Teams Hydraulic Barker Operator Relationship Specialty Start Date End Date Zakia Amato MD [address] [place] [address] PCP - General Internal Medicine 05/05/21 documented as of this encounter
--- OUTSIDE RECORDS SUMMARY | 2023-12-03 03:17 | External Medical Summary | Summary of Care ---
Author Name Unknown Organization [facility] Address [address] [facility] [place] [address] Phone [phone] Care Team Providers Care Instrument Technician Helper Name Role Phone Zakia Amato MD Primary Care Provider Encounter Details Date Type Department Care Team (Late st Contact Info) Description 09/07/2023 Telephone Gynecology/Obstetrics [facility] [address] [place] [id number] Meggan Diaz CRNP [address] [place] [id number] Allergies Active Allergy Reactions Criticality Noted Date Comments Latex Other (Please comment) 11/01/2017 Sensitive Azithromycin 09/25/2008 documented as of this encounter (statuses as of 09/07/2023) Medications Medication Sig Dispensed Refills Start Date End Date Status Vit-Fe Djo-HB-Vmpzc ( FORMULA) 28-0.8-235 MG CAPS Take by mouth. 0 Ac tive Levothyroxine Sodium 125 MCG Oral Tablet (Levoxyl) Take 1 Tablet by mouth in the morning. (at least 30 min prior to breakfast or other meds). 30 Tablet 5 07/20/2023 Active documented as of this encounter (statuses as of 09/07/2023) Active Problems Problem Noted Date Diagnosed Date Supervision of high risk in [facility] 06/03/2023 AMA (advanced maternal age) multigravida [...] Overview: Thyroid nodule diagnosed 2013. Biopsied at [place], benign. Last ultrasound 04/2020 noted calcifications, moderately [...] For now, will plan no follow-up with [facility]. However, if she continues to require ongoing adjustments may need to consider follow-up to assess growth. H/O Sarah thyroiditis 11/01/2017 Acquired hypothyroidism 11/01/2017 Irritable bowel syndrome Estimated Date of Delivery Comme nts Yes 11/28/2023 Based on Ultraso und documented as of this encounter (statuses as of 09/07/2023) Resolved Problems Problem Noted Date Diagnosed Date Resolved Date Subchorionic hemorrhage in first trimester 08/08/2020 08/15/2020 Supervision of normal first 07/09/2020 08/15/2020 AMA (advanced maternal age) primigravida 35+ 0 08/15/2020 Backache 07/08/2020 Overview: wears orthotics and exercises documented as of this encounter (statuses as of 09/07/2023) Immunizations Name Administration Dates Next Due COVID-19 [...] money to get more. Never true 06/28/2023 [place] Depression Scale Answer Date Recorded [place] Depression Scale Total 0 04/27/2023 The thought [...] encounter Miscellaneous Notes * Telephone Encounter - Charity Jones LPN - 09/07/2023 3:40 PM EST Spoke with pt labs were printed and attached to chart. mYG sent to pt * Telephone Encounter - Meggan Diaz CRNP - 09/07/2023 3:26 PM EST Per blood management, pt needs additonal labs drawn. I had disucssed with pt yesterday that I htought this could be the case. I placed the orders. [facility] wouldn't let me put them in as "normal", as pt uses [facility]. Please contact her and see how she'd like to get these lab slips. She said something yesterday about getting them through [facility], but I have no idea how to do that. * Telephone Encounter - Meggan Diaz CRNP - 09/07/2023 3:03 PM EST Pt had OB labs drawn through [facility]. Though CBC with anemia reflex was ordered, I do not see that itwas drawn this way through [facility], as I only have a CBC with diff. Do I need to order all of the reflexive labs separately? And are all necessary to start IV iron infusions? Please assist. Thank you! documented in this encounter Plan of Treatment Upcoming Encounters Date Type Department Care Team (Late st Contact Info) Description 09/23/2023 3:00 PM EST [facility] [address] [place] [address] Martin Mederos MD [address] [place] [address] Scheduled Orders Name Type Priority Associated Diagnoses Orde r Schedule VITAMIN B12 Lab Routine Antepartum anemia complicating Expected: 09/07/2023 (Approximate), Expires: 09/07/2024 FOLIC ACID Lab Routine Antepartum anemia complicating Expected: 09/07/2023 (Approximate), Expires: 09/07/2024 IRON SCREEN, INCLUDING TIBC Lab Routine Antepartum anemia complicating Expected: 09/07/2023 (Approximate), Expires: 09/07/2024 FERRITIN Lab Routine Antepartum anemia complicating Expected: 09/07/2023 (Approximate), Expires: 09/07/2024 RETICULOCYTE PANEL Lab Routine Antepartum anemia complicating Expected: 09/07/2023 (Approximate), Expires: 09/07/2024 Health Maintenance Due Date Last Done Comments Hepatitis B (1 of 3 - 3-dose series) 1985 HPV/Co-Test 2015 Diabetes Screening 11/07/2022 11/07/2019 COVID-19 Vaccine ( season) 2023 12/08/2020, 11/13/2020 Depression Screening 07/08/2023 07/08/2022 Cervical Cancer Screening 08/07/2024 Pap Smear 08/07/2024 08/07/2021, 03/17, 03/29/2018 TSH 08/19/2024 08/19/2023, 06/18, 06/08/2023, Additional history exists DTaP,Tdap,and Td Vaccines (3 [...] antepartum documented in this encounter Care Teams Instrument Technician Helper Relationship Specialty Start Date End Date Zakia Amato MD [address] [place] [address] PCP - General Internal Medicine 05/05/21 documented as of this encounter
--- OUTSIDE RECORDS SUMMARY | 2023-12-03 03:17 | External Medical Summary | Summary of Care ---
Author Name Unknown Organization [facility] Address [address] [place] [address] Phone [phone] Care Team Providers Care Mother Baby Rn Name Role Phone Zakia Amato MD Primary Care Provider Reason for Visit * Reason Comments Blood Management Program Encounter Details Date Type Department Care Team (Late st Contact Info) Description 09/14/2023 Documentation Patient Blood Management, [place] [address] [place] [address] Sandy Morelos RN Allergies Active Allergy Reactions Criticality Noted Date Comments Latex Other (Please comment) 11/01/2017 Sensitive Azithromycin 09/25/2008 documented as of this encounter (statuses as of 09/14/2023) Medications Medication Sig Dispensed Refills Start Date End Date Status Vit-Fe Ecz-AM-Fjwyu ( FORMULA) 28-0.8-235 MG CAPS Take by mouth. 0 Ac tive Levothyroxine Sodium 125 MCG Oral Tablet (Levoxyl) Take 1 Tablet by mouth in the morning. (at least 30 min prior to breakfast or other meds). 30 Tablet 5 09/12/2023 Active documented as of this encounter (statuses as of 09/14/2023) Active Problems Problem Noted Date Diagnosed Date Anemia in 09/14/2023 Supervision of high risk in [facility] 06/03/2023 AMA (advanced maternal age) [...] Overview: Thyroid nodule diagnosed 2013. Biopsied at [place], benign. Last ultrasound 04/2020 noted calcifications, moderately [...] as of this encounter (statuses as of 09/14/2023) Resolved Problems Problem Noted Date Diagnosed Date Resolved Date Subchorionic hemorrhage in first trimester 08/08/2020 08/15/2020 Supervision of normal first 07/09/2020 08/15/2020 AMA (advanced maternal age) primigravida 35+ 0 08/15/2020 Backache 07/08/2020 Overview: wears orthotics and exercises documented as of this encounter (statuses as of 09/14/2023) Immunizations Name Administration Dates Next Due COVID-19 [...] money to get more. Never true 06/28/2023 [place] Depression Scale Answer Date Recorded [place] Depression Scale Total 0 04/27/2023 The thought [...] as of this encounter Progress Notes * Sandy Morelos, HERNANDEZ - 09/14/2023 2:14 PM EST Images from the original note were not included. REFERRAL - Patient Blood Management Name: Kimberly Arrington REQUESTING SERVICE: [facility] OB REASON FOR REFERRAL: new evaluation outpatient, anemia in Anemia Evaluation: Current Patient Medications: Medications that may impair hemostasis: none Medications that may impair iron absorption: none Patient Refused Blood Transfusion? (e.g. Anabaptism): no Possible Contributing Factors: iron deficiency Treatment Recommendations: Recommend Iv iron per OB MTM protocol 09/14- Called patient to discuss recommendations. No answer, left voicemail for return call. MyG sent. 09/14- Patient returned call, agreeable to IV iron at [facility]. OB MTM sent. Thank you for allowing Blood Management to participate in the care of this patient. documented in this encounter Plan of Treatment Upcoming Encounters Date Type Department Care Team (Late st Contact Info) Description 09/23/2023 3:00 PM EST Office Visit Gynecology/Obstetrics [facility] [address] [place] [address] Martin Mederos MD [address] [place] [address] Health Maintenance Due Date Last Done Comments [...] filedocumented as of this encounter Care Teams Mother Baby Rn Relationship Specialty Start Date End Date Zakia Amato MD [address] [place] [address] PCP - General Internal Medicine 05/05/21 documented as of this encounter
--- OUTSIDE RECORDS SUMMARY | 2023-12-03 03:17 | External Medical Summary | Summary of Care ---
Author Name Unknown Organization [facility] Address [address] [facility] [address] Phone [phone] Care Team Providers Care Planting Material Carrier Name Role Phone Zakia Amato MD Primary Care Provider Reason for Visit * Reason Comments Return Visit Encounter Details Date Type Department Care Team (Late st Contact Info) Description 09/06/2023 2:00 PM EST Office Visit Gynecology/Obstetric s [facility] [address] [place] [address] Meggan Diaz CRNP [address] [place] [address] Multigravida of advanced maternal age in third trimester*; Hypothyroidism affecting in third trimester; Supervision of high risk in second trimester Allergies Active Allergy Reactions Criticality Noted Date Comments Latex Other (Please comment) 11/01/2017 Sensitive Azithromycin 09/25/2008 documented as of this encounter (statuses as of 09/06/2023) Medications Medication Sig Dispensed Refills Start Date End Date Status Vit-Fe Pih-OD-Ynnzd ( FORMULA) 28-0.8-235 MG CAPS Take by mouth. 0 Ac tive Levothyroxine Sodium 125 MCG Oral Tablet (Levoxyl) Take 1 Tablet by mouth in the morning. (at least 30 min prior to breakfast or other meds). 30 Tablet 5 07/20/2023 Active documented as of this encounter (statuses as of 09/06/2023) Active Problems Problem Noted Date Diagnosed Date Supervision of high risk in second tri [...] Overview: Thyroid nodule diagnosed 2013. Biopsied at [place], benign. Last ultrasound 04/2020 noted calcifications, moderately [...] as of this encounter (statuses as of 09/06/2023) Resolved Problems Problem Noted Date Diagnosed Date Resolved Date Subchorionic hemorrhage in first trimester 08/08/2020 08/15/2020 Supervision of normal first 07/09/2020 08/15/2020 AMA (advanced maternal age) primigravida 35+ 0 08/15/2020 Backache 07/08/2020 Overview: wears orthotics and exercises documented as of this encounter (statuses as of 09/06/2023) Immunizations Name Administration Dates Next Due COVID-19 [...] money to get more. Never true 06/28/2023 [place] Depression Scale Answer Date Recorded [place] Depression Scale Total 0 04/27/2023 The thought [...] Sign Reading Time Taken Comments Blood Pressure 100/60 09/06/2023 1:50 PM EST Pulse - - Temperature - - Respiratory Rate - - Oxygen Saturation - - Inhaled Oxygen Concentration - - Weight 76.4 kg (168 lb 6.4 oz) 09/06/2023 1:50 P M EST Height 167.6 cm (5' 6") 09/06/2023 1:50 PM EST Body Mass Index 27.18 09/06/2023 1:50 PM EST documented in this encounter Progress Notes * Meggan Diaz CRNP - 09/06/2023 2:37 PM EST 28w1d Had 3rd trimester labs drawn last week through [facility]. These have not been received yet, but she is able to see them through [facility]. Hgb 10.2. we discussed iron infusions, but anemia reflex labs are not back-- unsure if these are standard through [facility], despite lab being ordered this way. Will await the results. Glucola lab still in process. She has no other concerns. Baby is active. No contractions, bleeding, or LOF. TDAP today Will recheck thyroid before next visit. MARCELA Mcmahon * Merary Ayala LPN - 09/06/2023 1:54 PM EST 28w1d Pt had 28wk labs done through [facility], pt denies any concerns. CBC: WBC: 11 RBC: 3.29 HGB: 10.2 HCT: 31.5 documented in this encounter Nursing Notes * Merary Ayala LPN - 09/06/2023 2:43 PM EST Patient here for tdap injection. Patient doing well no complaints. Injection given IM as ordered. Patient tolerated well. Patient to follow up as directed. Patient instructed to call if any complications. Patient verbalized understanding of instructions given. Injection site: Left Deltoid Medication Source: Dispensed stock medication documented in this encounter Plan of Treatment Upcoming Encounters Date Type Department Care Team (Late st Contact Info) Description 09/23/2023 3:00 PM EST Office Visit Gynecology/Obstetrics [facility] [address] [place] [address] Martin Mederos MD [address] [place] [address] Scheduled Orders Name Type Priority Associated Diagnoses Orde r Schedule TSH Lab Routine Hypothyroidism affecting in third trimester Ordered: 09/06/2023 T4, FREE Lab Routine Hypothyroidism affecting in third trimester Ordered: 09/06/2023 Health Maintenance Due Date Last Done Comments [...] high-risk documented in this encounter Care Teams Planting Material Carrier Relationship Specialty Start Date End Date Zakia Amato MD [address] [place] [address] PCP - General Internal Medicine 05/05/21 documented as of this encounter
--- OUTSIDE RECORDS SUMMARY | 2023-12-03 03:17 | External Medical Summary | Summary of Care ---
Author Name Unknown Organization [facility] Address [address] [place] [facility] [place] [place] [address] Phone [phone] Care Team Providers Care Watch Band Assembler Name Role Phone Zakia Amato MD Primary Care Provider Reason for Visit * Reason Onset Date Comments Medication Refill 09/12/2023 Encounter Details Date Type Department Care Team (Late st Contact Info) Description 09/12/2023 Refill Gynecology/Obstetrics [facility] [address] [place] [address] Steven Diaz CRNP [address] [place] [address] Allergies Active Allergy Reactions Criticality Noted Date Comments Latex Other (Please comment) 11/01/2017 Sensitive Azithromycin 09/25/2008 documented as of this encounter (statuses as of 09/12/2023) Medications Medication Sig Dispensed Refills Start Date End Date Status Vit-Fe Xtp-QC-Mzleg ( FORMULA) 28-0.8-235 MG CAPS Take by mouth. 0 Active Levothyroxine Sodium 125 MCG Oral Tablet (Levoxyl) Take 1 Tablet by mouth in the morning. (at least 30 min prior to breakfast or other meds). 30 Tablet 5 09/12/2023 Active Levothyroxine Sodium 125 MCG Oral Tablet (Levoxyl) Take 1 Tablet by mouth in the morning. (at least 30 min prior to breakfast or other meds). 30 Tablet 5 07/20/2023 09/12/2023 Discontinued (Refill) documented as of this encounter (statuses as of 09/12/2023) Active Problems Problem Noted Date Diagnosed Date Supervision of high risk in [facility] 06/03/2023 AMA (advanced maternal age) multigravida 35+ [...] Overview: Thyroid nodule diagnosed 2013. Biopsied at [place], benign. Last ultrasound 04/2020 noted calcifications, moderately [...] For now, will plan no follow-up with [facility]. However, if she continues to require ongoing adjustments may need to consider follow-up to assess growth. H/O Sarah thyroiditis 11/01/2017 Acquired hypothyroidism 11/01/2017 Irritable bowel syndrome Estimated Date of Delivery Comme nts Yes 11/28/2023 Based on Ultraso und documented as of this encounter (statuses as of 09/12/2023) Resolved Problems Problem Noted Date Diagnosed Date Resolved Date Subchorionic hemorrhage in first trimester 08/08/2020 08/15/2020 Supervision of normal first 07/09/2020 08/15/2020 AMA (advanced maternal age) primigravida 35+ 0 08/15/2020 Backache 07/08/2020 Overview: wears orthotics and exercises documented as of this encounter (statuses as of 09/12/2023) Immunizations Name Administration Dates Next Due COVID-19 [...] money to get more. Never true 06/28/2023 [place] Depression Scale Answer Date Recorded [place] Depression Scale Total 0 04/27/2023 The thought [...] encounter Miscellaneous Notes * Telephone Encounter - Steven Diaz CRNP - 09/12/2023 11:22 AM ESTSigned Prescriptions: Disp Refills Levothyroxine Sodium 125 MCG Oral Tablet (*30 Tab*5 Sig: Take 1 Tablet by mouth in the morning. (at least 30 min prior to breakfast or other meds).Authorizing Provider: STEVEN DIAZ documented in this encounter Plan of Treatment Upcoming Encounters Date Type Department Care Team (Late st Contact Info) Description 09/23/2023 3:00 PM EST Office Visit Gynecology/Obstetrics [facility] [address] [address] Martin Mederos MD [address] [place] [address] Health Maintenance Due Date Last Done Comments [...] filedocumented as of this encounter Care Teams Watch Band Assembler Relationship Specialty Start Date End Date Zakia Amato MD [address] [place] [address] PCP - General Internal Medicine 05/05/21 documented as of this encounter
--- OUTSIDE RECORDS SUMMARY | 2023-12-03 03:17 | External Medical Summary | Summary of Care ---
Author Name Unknown Organization [facility] Address [address] [place] [address] Phone [phone] Care Team Providers Care Needle Polisher Name Role Phone Zakia Amato MD Primary Care Provider Encounter Details Date Type Department Care Team (Late st Contact Info) Description 09/22/2023 Orders Only Pharmacy, [place] [address] [place] [address] [facility] [address] [place] [address] Allergies Active Allergy Reactions Criticality Noted Date Comments Latex Other (Please comment) 11/01/2017 Sensitive Azithromycin 09/25/2008 documented as of this encounter (statuses as of 09/22/2023) Medications Medication Sig Dispensed Refills Start Date End Date Status Vit-Fe Mgt-MD-Sgnai ( FORMULA) 28-0.8-235 MG CAPS Take by [...] in 09/14/2023 Supervision of high risk in [facility] 06/03/2023 AMA (advanced maternal age) multigravida [...] Overview: Thyroid nodule diagnosed 2013. Biopsied at [place], benign. Last ultrasound 04/2020 noted calcifications, moderately [...] money to get more. Never true 06/28/2023 [place] Depression Scale Answer Date Recorded [place] Depression Scale Total 0 04/27/2023 The thought [...] Gynecology/Obstetrics [facility] [address] [place] [address] Martin Mederos MD [address] [place] [address] 09/27/2023 10:00 AM EST Pharmacy Pharmacy, [place] [address], [place] [id number] Clinic, [facility] [address] [place], [place] [id number] Health Maintenance Due Date Last Done Comments [...] filedocumented as of this encounter Care Teams Needle Polisher Relationship Specialty Start Date End Date Zakia Amato MD [address] [place] [address] PCP - General Internal Medicine 05/05/21 documented as of this encounter
--- OUTSIDE RECORDS SUMMARY | 2023-12-03 03:17 | External Medical Summary | Summary of Care ---
Author Name Unknown Organization [facility] Address [address] [place] [address] Phone [phone] Care Team Providers Care Vehicle Mechanic Name Role Phone Zakia Amato MD Primary Care Provider Reason for Visit * Reason Onset Date Comments Anemia Follow-Up 10/04/2023 Encounter Details Date Type Department Care Team (Late st Contact Info) Description 10/04/2023 10:00 AM [facility] Pharmacy Pharmacy, [place] [address] [place], [place] [id number] Clinic, An[facility] [address], [place] [id number] Iron deficiency anemia, unspecified iron deficiency anemia type* Allergies Active Allergy Reactions Criticality Noted Date Comments Latex Other (Please comment) 11/01/2017 Sensitive Azithromycin 09/25/2008 documented as of this encounter (statuses as of 10/04/2023) Medications Medication Sig Dispensed Refills Start Date End Date Status Vit-Fe Qbn-HY-Ufmgu ( FORMULA) 28-0.8-235 MG CAPS Take by [...] as of this encounter (statuses as of 10/04/2023) Active Problems Problem Noted Date Diagnosed Date Iron deficiency anemia 09/20/2023 Anemia in 09/14/2023 Supervision of high risk in [facility] 06/03/2023 AMA (advanced maternal age) multigravida [...] Overview: Thyroid nodule diagnosed 2013. Biopsied at [place], benign. Last ultrasound 04/2020 noted calcifications, moderately [...] For now, will plan no follow-up with [facility]. However, if she continues to require ongoing adjustments may need to consider follow-up to assess growth. H/O Sarah thyroiditis 11/01/2017 Acquired hypothyroidism 11/01/2017 Irritable bowel syndrome Estimated Date of Delivery Comme nts Yes 11/28/2023 Based on Ultraso und documented as of this encounter (statuses as of 10/04/2023) Resolved Problems Problem Noted Date Diagnosed Date Resolved Date Subchorionic hemorrhage in first trimester 08/08/2020 08/15/2020 Supervision of normal first 07/09/2020 08/15/2020 AMA (advanced maternal age) primigravida 35+ 0 08/15/2020 Backache 07/08/2020 Overview: wears orthotics and exercises documented as of this encounter (statuses as of 10/04/2023) Immunizations Name Administration Dates Next Due COVID-19 [...] money to get more. Never true 06/28/2023 [place] Depression Scale Answer Date Recorded [place] Depression Scale Total 2 09/23/2023 The thought [...] Progress Notes * Haylee Cam RPh - 10/04/2023 10:50 AM EST Patient received first dose of Venofer 300 mg x 3 repletion series on 09/29 and appeared to have tolerated it without issue. Next scheduled: 10/06 Scheduled to be completed: 10/13 GA: 32w1d Estimated Date of Delivery: 11/28/23 Follow-up after completion of series to schedule repeat labs if appropriate prior to delivery. Anemia Clinic will continue to follow. Thank you for allowing us to participate in the care of thispatient. Thanks, Haylee Cam [facility] Clinical Pharmacist [facility] (P: [phone]) 10/04/2023 10:50 AM documented in this encounter Plan of Treatment Upcoming Encounters Date Type Department Care Team (Late st Contact Info) Description 10/06/2023 10:30 AM EST Hem/Onc Treatment Hematology[address] [address] Gayatri, Chair 11 Hem On[address] [place] [address] 10/07/2023 2:45 PM EST Office Visit Gynecology/Obstetrics [facility] [address] [place] [address] Meggan Diaz CRNP [address] [place] [address] 10/13/2023 2:30 PM EST Hem/Onc Treatment Hematology[address] [address] Gayatri, Chair [address] [facility] [address] [facility] [place] [address] 10/18/2023 1:30 PM EST Pharmacy Pharmacy, [place] [address] [place] [address] Clinic, [facility] [address] [place] [address] 10/21/2023 2:30 PM EST Office Visit Gynecology/Obstetrics [facility] [address] [facility] [address] Alida Shaffer CNM [address] [facility] [place] [address] 11/04/2023 2:15 PM EST Office Visit Gynecology/Obstetrics [facility] [address] [facility] [place] [address] Meggan Diaz CRNP [address] [place] [address] Health Maintenance Due Date Last Done Comments Hepatitis B (1 of 3 - 3-dose series) 1985 HPV/Co-Test 2015 Diabetes Screening 11/07/2022 11/07/2019 COVID-19 Vaccine (2022- season) 2023 12/08/2020, 11/13/2020 Depression Screening 07/08/2023 07/08/2022 Cervical Cancer Screening 08/07/2024 Pap Smear 08/07/2024 08/07/2021, 03/17, 03/29/2018 TSH 09/12/2024 09/12/2023, 1112/2022, 07/14/2023, Additional history exists DTaP,Tdap,and Td Vaccines [...] Primary documented in this encounter Care Teams Vehicle Mechanic Relationship Specialty Start Date End Date Zakia Amato MD [address] [place] [address] PCP - General Internal Medicine 05/05/21 documented as of this encounter
--- OUTSIDE RECORDS SUMMARY | 2023-12-03 03:17 | External Medical Summary | Summary of Care ---
Author Name Unknown Organization [facility] Address [address] [facility] [place] [address] Phone [phone] Care Team Providers Care Sign Language Teacher Name Role Phone Zakia Amato MD Primary Care Provider Encounter Details Date Type Department Care Team (Late st Contact Info) Description 09/20/2023 Orders Only Gynecology/Obstetrics [facility] [address] [place] [id number] Meggan Diaz CRNP [address] [place] [address] Iron deficiency anemia, unspecified iron deficiency anemia type* Allergies Active Allergy Reactions Criticality Noted Date Comments Latex Other (Please comment) 11/01/2017 Sensitive Azithromycin 09/25/2008 documented as of this encounter (statuses as of 09/20/2023) Medications Medication Sig Dispensed Refills Start Date End Date Status Vit-Fe Ifz-JV-Wdilk ( FORMULA) 28-0.8-235 MG CAPS Take by [...] in 09/14/2023 Supervision of high risk in [facility] 06/03/2023 AMA (advanced maternal age) multigravida [...] Overview: Thyroid nodule diagnosed 2013. Biopsied at [place], benign. Last ultrasound 04/2020 noted calcifications, moderately [...] to get more. Never true 06/28/2023 [place] Depression Scale Answer Date Recorded [place] Depression Scale Total 0 04/27/2023 The thought [...] st Contact Info) Description 09/20/2023 4:00 PM EST Pharmacy Pharmacy, [place] [address] [place] [address] Clinic, Anemia [address] [place] [address] Iron deficiency anemia, unspecified iron deficiency anemia type* 09/23/2023 3:00 PM EST Office Visit Gynecology/Obstetric s [facility] [address] [place] [address] Martin Mederos MD [address] [place] [address] 09/27/2023 10:00 AM EST Pharmacy Pharmacy, [place] [address] [place] [address] Clinic, Anemia [address] [place] [address] Health Maintenance Due Date Last Done Comments [...] anemia, unspecified iron deficiency anemia type- Primary Iron deficiency anemia, unspecified iron deficiency anemia type- Primary documented in this encounter Care Teams Sign Language Teacher Relationship Specialty Start Date End Date Zakia Amato MD [address] [place] [address] PCP - General Internal Medicine 05/05/21 documented as of this encounter
--- OUTSIDE RECORDS SUMMARY | 2023-12-03 03:17 | External Medical Summary | Summary of Care ---
Author Name Unknown Organization [facility] Address [address] [place] [address] Phone [phone] Care Team Providers Care Medication Coordinator Name Role Phone Zakia Amato MD Primary Care Provider Reason for Visit * Reason Comments Return Visit Encounter Details Date Type Department Care Team (Latest Contact Info) Description 09/23/2023 3:00 PM EST Office Visit Gynecology/Obstetri [facility] [address] [place] [address] Martin Mederos MD [address] [place] [address] Hypothyroidism affecting in third trimester*; Multigravida of advanced maternal age in third trimester; Supervision of high risk in second trimester Allergies Active Allergy Reactions Criticality Noted Date Comments Latex Other (Please comment) 11/01/2017 Sensitive Azithromycin 09/25/2008 documented as of this encounter (statuses as of 09/23/2023) Medications Medication Sig Dispensed Refills Start Date End Date Status Vit-Fe Qxh-QA-Ihxfb ( FORMULA) 28-0.8-235 MG CAPS Take by [...] in 09/14/2023 Supervision of high risk in [facility] 06/03/2023 AMA (advanced maternal age) [...] Overview: Thyroid nodule diagnosed 2013. Biopsied at [place], benign. Last ultrasound 04/2020 noted calcifications, moderately [...] For now, will plan no follow-up with [facility]. However, if she continues to require [...] money to get more. Never true 06/28/2023 [place] Depression Scale Answer Date Recorded [place] Depression Scale Total 2 09/23/2023 The thought [...] Sign Reading Time Taken Comments Blood Pressure 108/70 09/23/2023 2:55 PM EST Pulse - - Temperature - - Respiratory Rate - - Oxygen Saturation - - Inhaled Oxygen Concentration - - Weight 77.6 kg (171 lb) 09/23/2023 2:55 PM EST Height 167.6 cm (5' 6") 09/23/2023 2:55 PM EST Body Mass Index 27.6 09/23/2023 2:55 PM EST documented in this encounter Progress Notes * Martin Mederos MD - 09/23/2023 3:19 PM EST Pt doing well No complaints RTC as scheduled documented in this encounter Nursing Notes * Marta Rodriguez LPN - 09/23/2023 3:00 PM EST 30w4d Denies concerns today. Recently started B12 per PCP recommendation and is feeling less fatigued. Will start IV iron next week. documented in this encounter Plan of Treatment Upcoming Encounters Date Type Department Care Team (Late st Contact Info) Description 09/27/2023 10:00 AM EST Pharmacy Pharmacy, [place] [address] [place] [address] Clinic, Anemia [address] [place] [address] 09/29/2023 10:30 AM EST Hem/Onc Treatment Hematology/Oncology Treatment, [place] [address] [place] [address] Gayatri, Chair 10 Hem Onc Scenery [address] [place] [address] 10/07/2023 2:45 PM EST Office Visit Gynecology/Obstetrics [facility] [address] [facility] [address] Meggan Diaz CRNP [address] [place] [address] 10/21/2023 2:30 PM EST Office Visit Gynecology/Obstetrics [facility] [address] [facility], [place] [address] Alida Shaffer, [facility] [address] [facility], [place] [address] 11/04/2023 2:15 PM EST Office Visit Gynecology/Obstetrics [facility] [address] [place] [address] Meggan Diaz CRNP [address] [place] [address] Health Maintenance Due Date Last Done Comments [...] high-risk documented in this encounter Care Teams Medication Coordinator Relationship Specialty Start Date End Date Zakia Amato MD [address] [place] [address] PCP - General Internal Medicine 05/05/21 documented as of this encounter
--- OUTSIDE RECORDS SUMMARY | 2023-12-03 03:17 | External Medical Summary | Summary of Care ---
Author Name Unknown Organization [facility] Address [address] [place] [address] Phone [phone] Care Team Providers Care Android Programmer Name Role Phone Zakia Amato MD Primary Care Provider Reason for Visit * Reason Comments Infusion Venofer 10/19 Encounter Details Date Type Department Care Team (Latest Contact Info) Description 09/29/2023 10:30 AM EST Hem/Onc Treatment Hematology/Oncology Treatment, [place] [address] [place] [address] Gayatri, Chair 10 Hem Onc Scenery [address] [place] [address] Iron deficiency anemia, unspecified iron deficiency anemia type* Allergies Active Allergy Reactions Criticality Noted Date Comments Latex Other (Please comment) 11/01/2017 Sensitive Azithromycin 09/25/2008 documented as of this encounter (statuses as of 09/29/2023) Medications Medication Sig Dispensed Refills Start Date End Date Status Vit-Fe Upo-PC-Dubcj ( FORMULA) 28-0.8-235 MG CAPS Take by [...] as of this encounter (statuses as of 09/29/2023) Active Problems Problem Noted Date Diagnosed Date Iron deficiency anemia 09/20/2023 Anemia in 09/14/2023 Supervision of high risk in [facility] 06/03/2023 AMA (advanced maternal age) multigravida [...] Overview: Thyroid nodule diagnosed 2013. Biopsied at [place], benign. Last ultrasound 04/2020 noted calcifications, moderately [...] For now, will plan no follow-up with [facility]. However, if she continues to require ongoing adjustments may need to consider follow-up to assess growth. H/O Sarah thyroiditis 11/01/2017 Acquired hypothyroidism 11/01/2017 Irritable bowel syndrome Estimated Date of Delivery Comme nts Yes 11/28/2023 Based on Ultraso und documented as of this encounter (statuses as of 09/29/2023) Resolved Problems Problem Noted Date Diagnosed Date Resolved Date Subchorionic hemorrhage in first trimester 08/08/2020 08/15/2020 Supervision of normal first 07/09/2020 08/15/2020 AMA (advanced maternal age) primigravida 35+ 0 08/15/2020 Backache 07/08/2020 Overview: wears orthotics and exercises documented as of this encounter (statuses as of 09/29/2023) Immunizations Name Administration Dates Next Due COVID-19 [...] money to get more. Never true 06/28/2023 [place] Depression Scale Answer Date Recorded [place] Depression Scale Total 2 09/23/2023 The thought [...] Sign Reading Time Taken Comments Blood Pressure 111/73 09/29/2023 11:11 AM EST Pulse 86 09/29/2023 11:11 AM EST Temperature 36.8 C (98.3 F) 09/29/2023 11:[address] Respiratory Rate 18 09/29/2023 11:11 AM EST Oxygen Saturation 98% 09/29/2023 11:11 AM EST Inhaled Oxygen Concentration - - Weight - - Height - - Body Mass Index - - documented in this encounter Nursing Notes * Maribel Vasquez LPN - 09/29/2023 11:13 AM EST 1035: Chair 5. Pt arrived for Venofer /3 infusion. PIV in RFA. Pt tolerated well. VSS. No complaints at this time. 1215: Pt tolerated Venofer infusion well. PIV removed intact. Pt to return in one week. Discharged in stable condition. documented in this encounter Plan of Treatment Upcoming Encounters Date Type Department Care Team (Late st Contact Info) Description 10/04/2023 10:00 AM [facility] [address] [place] [address] Clinic, Anemia [address] [place] [address] 10/06/2023 10:30 AM EST Hem/Onc Treatment Hematology/Oncology Treatment, [place] [address] [place] [address] Gayatri, Chair 11 Hem Onc Scenery [address] [place] [address] 10/07/2023 2:45 PM EST Office Visit Gynecology/Obstetrics [facility] [address] [place] [address] Meggan Diaz CRNP [address] [place] [address] 10/13/2023 2:30 PM EST Hem/Onc Treatment Hematology/Oncology Treatment, [place] [address] [place] [address] Gayatri, Chair 8 Hem Onc Scenery [address] [place] [address] 10/21/2023 2:30 PM EST Office Visit Gynecology/Obstetrics [facility] [address] [facility] [place] [address] Alida Shaffer [facility] [address] [facility] [place] [address] 11/04/2023 2:15 PM EST Office Visit Gynecology/Obstetrics [facility] 132 [facility] [place] [address] Meggan Diaz CRNP [address] [facility] [place] [address] Health Maintenance Due Date Last Done Comments [...] ONCE PRN Other, Hypersensitivity Reaction, Starting on Tue09/29/23 at 1039, Until Tue09/30/23 at 1038, For 24 hours EPINEPHrine 1 MG/ML inj 0.3 mg 0.3 mg, Intramuscular, ONCE PRN Other, Hypersensitivity Reaction or Anaphylaxis, Starting on Tue09/29/23 at 1039, Until Tue09/30/23 at 1038, For 24 hours hEParin 100 UNIT/ML Lock Flush inj 500 Units 500 Units (5 mL), IV Lock, PRN Other, IV Flush, Starting on Tue09/29/23 at 1039, Until Tue09/30/23 at 1038, For 24 hours, Do not flush if lock, PICC, or central line not in place; IV infusing or unable to flush. Hydrocortisone Sod Suc (PF) (Solu-Cortef) inj 100 mg 100 mg, IV Push, ONCE PRN Other, Hypersensitivity Reaction, Starting on Tue09/29/23 at 1039, Until Tue09/30/23 at 1038, For 24 hours NSS infusion 500 mL, Intravenous, at 50 mL/hr, CONTINUOUS, Starting on Tue09/29/23 at 1145, Until Tue09/29/23 at 2144 Start Infusion 09/29/2023 10:39 AM EST 500 mL 50 mL/hr oxygen GAS Inhalation, OXYGEN, First dose on Tue09/29/23 at 1115, Until Discontinued, Device/Managed by: Low [...] PRN Other, IV Flush, Starting on Lala 09/29/23 at 1039, Until Tue09/30/23 at 1038, For 24 hours, Do not flush if lock, PICC, or central line not in place; IV infusing or unable to flush. Inactive Administered Medications - up to 3 most recent administrations Medication Order MAR Action Action Date Dose Rate Site Iron Sucrose (Venofer) 300 mg in NSS 250 mL ivpb 300 mg, IV Piggyback, ONCE, 1 dose, On Lala 09/29/23 at 1215, Administer over 90 Minutes Start Infusion 09/29/2023 10:39 AM EST 300 mg 166.67 mL/hr documented in this encounter Care Teams Android Programmer Relationship Specialty Start Date End Date Zakia Amato MD [address] [place] [address] PCP - General Internal Medicine 05/05/21 documented as of this encounter
--- OUTSIDE RECORDS SUMMARY | 2023-12-03 03:17 | External Medical Summary | Summary of Care ---
Author Name Unknown Organization [facility] Address [address] [place] [address] Phone [phone] Care Team Providers Care Readiness Paraprofessional Name Role Phone Zakia Amato MD Primary Care Provider Reason for Referral * Evaluate & Treat - Unlimited Visits (Within 10 days (routine)) - Pending Review Specialty Diagnoses / Procedures Referred By Contac t Referred To Contact Pharmacist / Pharmacy Diagnoses TONYA (iron deficiency anemia) Meggan Diaz CRNP [address] [place] [address] Referral ID Status Reason Start Date Expiration Date Visits Requested Visits Authorized [id number] Pending Review Specialty Services Required 3 [phone] Question Answer Referral Priority Within 10 days (routine) Where should this appointment be scheduled? [facility] Department: Specialist Specialty: regulatory assistant Reason for Referral: Anemia Comments Pharmacist Medication Therapy Management: Iron Deficiency Anemia Sandy Morelos RN Reason for Visit * Reason Onset Date Comments Blood Management Program 09/14/2023 Encounter Details Date Type Department Care Team (Late st Contact Info) Description 09/14/2023 Telephone Patient Blood Management, [place] [address] [place] [address] Meggan Diaz CRNP [address] [place] [address] Blood Management Program Allergies Active Allergy Reactions Criticality Noted Date Comments Latex Other (Please comment) 11/01/2017 Sensitive Azithromycin 09/25/2008 documented as of this encounter (statuses as of 09/23/2023) Medications Medication Sig Dispensed Refills Start Date End Date Status Vit-Fe Nhg-HQ-Kumox ( FORMULA) 28-0.8-235 MG CAPS Take by [...] 09/14/2023 Supervision of high risk in [facility] 06/03/2023 AMA (advanced maternal age) multigravida [...] Overview: Thyroid nodule diagnosed 2013. Biopsied at [place], benign. Last ultrasound 04/2020 noted calcifications, moderately [...] money to get more. Never true 06/28/2023 [place] Depression Scale Answer Date Recorded [place] Depression Scale Total 0 04/27/2023 The thought [...] Ramey RN - 09/23/2023 11:42 AM EST [place] is signed. Scheduling: please call patient to schedule 2 hour appt "venofer 10/19" (Meggan Diaz). Thanks! Patient will need venofer once a week x3. * Telephone Encounter - Liana Ramey RN - 09/22/2023 8:35 AM EST [place] plan built and routed for signature. Prior auth not needed for venofer. Can be scheduled once [facility] plan is signed. * Telephone Encounter - Sandy Morelos RN - 09/14/2023 4:01 PM EST Recommend IV iron per OB MTM protocol. Patient agreeable to infusions at [facility]. documented in this encounter Plan of Treatment Upcoming Encounters Date Type Department Care Team (Late st Contact Info) Description 09/23/2023 3:00 PM EST Office Visit Gynecology/Obstetrics [facility] [address] [place] [address] Martin Mederos MD [address] [place] [address] 09/27/2023 10:00 AM EST Pharmacy Pharmacy, [place] [address] [place] [address] Clinic, Anemia [address] [place] [address] Scheduled Referrals Name Type Priority Associated Diagnoses [...] unspecified documented in this encounter Care Teams Readiness Paraprofessional Relationship Specialty Start Date End Date Zakia Amato MD [address] [place] [address] PCP - General Internal Medicine 05/05/21 documented as of this encounter
--- OUTSIDE RECORDS SUMMARY | 2023-12-03 03:18 | External Medical Summary | Summary of Care ---
Author Name Unknown Organization [facility] Address [address] [place] [address] Phone [phone] Care Team Providers Care Nuclear Operations Specialist Name Role Phone Zakia Amato MD Primary Care Provider Reason for Visit * Reason Comments Ultrasound Encounter Details Date Type Department Care Team Description 08/04/2023 Office Visit Commercial Lines Manager Obstetrics Maternal Medicine, [place] [address] [place] [address] Loki Cabrera, [address] [place] [address] Multigravida of advanced maternal age in second trimester*; Hypothyroidism affecting in second trimester; Other specified related conditions, unspecified trimester; 23 weeks gestation of Allergies Active Allergy Reactions Severity Noted Date Comments Latex Other (Please comment) 11/01/2017 Sensitive Azithromycin 09/25/2008 documented as of this encounter (statuses as of 08/04/2023) Medications Medication Sig Dispensed Refills Start Date End Date Status Vit-Fe Uxc-XI-Usnts ( FORMULA) 28-0.8-235 MG CAPS Take by mouth. 0 Ac tive Levothyroxine Sodium 125 MCG Oral Tablet (Levoxyl) Take 1 Tablet by mouth in the morning. (at least 30 min prior to breakfast or other meds). 30 Tablet 5 07/20/2023 Active documented as of this encounter (statuses as of 08/04/2023) Active Problems Problem Noted Date Supervision of high risk in se cond trimester 06/03/2023 AMA (advanced maternal age) multigravida 35+ 04/27/2023 Overview: Patient will be 38 years-old at [...] seen today. History of 2019 novel coronavirus diseas e (COVID-19) 07/08/2022 Thyroid nodule 05/14/2021 Overview: Thyroid nodule diagnosed 2013. Biopsied at [place], benign. Last ultrasound 04/2020 noted calcifications, moderately suspicious, continued surveillance recommended. 04/2023: nodule stable. ENT recommended repeat US by PCP in one year. 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 125 [...] as of this encounter (statuses as of 08/04/2023) Resolved Problems Problem Noted Date Resolved Date Subchorionic hemorrhage in first trimester 08/0808/15/2020 Supervision of normal first 07/09/2020 08/15/2020 AMA (advanced maternal age) primigravida 35+ 08/15/2020 Backache 07/08/2020 Overview: wears orthotics and exercises documented as of this encounter (statuses as of 08/04/2023) Immunizations Name Administration Dates Next Due COVID-19 mRNA, LNP-s, No Pre serve, 2-Dose Series (Moderna) 12/08/2020,11/13/2020 SEASONAL INFLUENZA, PF, 6 M & Above, IM , (FLULAVAL or FLUZONE) 06/29/2023,07/08/2022,08/08/2020 TDAP (age 10 and older)(Boostrix) 11/01/2017 documented as of this encounter Social History Tobacco Use Types Packs/Day Years Used Date Smoking Tobacco: Never Smokeless Tobacco: Never Alcohol Use Standard Drinks/Week Comments Not Currently 0 (1 standard drink = 0.6 oz pur e alcohol) Denies in Food Insecurity Answer Date Recorded Within the past 12 months, y ou worried that your food would run out before you got money to buy more. Never true 06/29/2023 Within the past 12 months, t he food you bought just didn't last and you didn't have money to get more. Never true 06/29/2023 Estimated Date of Delivery Comme nts Yes 11/28/2023 Based on Ultraso und Sex Assigned at Date Recorded Female 03/02/2019 12:22 PM EDT Job Start Date Occupation Industry Not on file Not on file Not on file documented as of this encounter Progress Notes * Lkoi Cabrera, DO - 08/04/2023 3:32 PM EDT MATERNAL MEDICINE VISIT Kimberly Arrington is at 23w3d who presents to [facility] for an ultrasound and follow-up of her high risk . PHYSICAL EXAM: General: pleasant, alert and oriented, no acute distress She is being seen today by Maternal- Medicine for the following reasons: Problem List Items Addressed This Visit Hypothyroidism affecting Her most recent TSH on 07/14/23 was borderline at 3.01. She did have a dose adjustment, so we discussed that I suspect future testing will be improved. For now, will plan no follow-up with MFM. However, if she continues to require ongoing adjustments may need to consider follow-up to assess growth. AMA (advanced maternal age) multigravida 35+ - Primary She presents for a anatomy survey secondary [...] identify all anomalies, but it is reassuring thatno anomalies were seen today. We reviewed today's ultrasound findings. (For full report, please refer to ultrasound report provided separately). Ms. Arrington's questions were answered to her satisfaction. RECOMMENDATIONS: No follow-up with Maternal Medicine is necessary unless further questions or indications arise. Thank you for allowing us to participate in the care of this patient. Please call with any questions. Loki Cabrera DO 08/04/2023 3:32 PM documented in this encounter Miscellaneous Notes * Assessment & Plan Note - Loki Cabrera DO - 08/04/2023 3:33 PM EDT Associated Problem(s): Hypothyroidism affecting Her most recent TSH on 07/14/23 was borderline at 3.01. She did have a dose adjustment, so we discussed that I suspect future testing will be improved. For now, will plan no follow-up with MFM. However, if she continues to require ongoing adjustments may need to consider follow-up to assess growth. * Assessment & Plan Note - Loki Cabrera DO - 08/04/2023 2:41 PM EDT Associated Problem(s): AMA (advanced maternal age) multigravida 35+ She presents for a anatomy survey secondary [...] identify all anomalies, but it is reassuring thatno anomalies were seen today. documented in this encounter Plan of Treatment Upcoming Encounters Date Type Specialty Care Team Description 08/24/2023 Office Visit Gynecology Obstetrics Meggan Diaz CRNP [address] [place] [address] Scheduled Orders Name Type Priority Associated Diagnoses Orde r Schedule MFM US PREG FOLLOW UP EACH FETUS Medical Imaging Routine Multigravida of advanced maternal age in second trimester Hypothyroidism affecting in second trimester Other specified related conditions, unspecified trimester 4 Occurrences starting 08/04/2023 until 11/28/2023 Health Maintenance Due Date Last Done Comments Hepatitis B (1 of 3 - 3-dose series) 1985 HPV/Co-Test 2015 Diabetes Screening 11/07/2022 11/07/2019 COVID-19 Vaccine ( season) 2023 12/08/2020, 11/13/2020 Depression Screening 07/08/2023 07/08/2022 TSH 07/14/2024 07/14/2023, 0812/2022, 04/27/2023, Additional history exists Cervical Cancer Screening 08/07/2024 Pap Smear 08/07/2024 08/07/2021, 03/17, 03/29/2018 DTaP,Tdap,and Td Vaccines (2 - Td or Tdap) 11/01/2027 11/01/2017 Influenza Vaccine (FLU shot) Completed , [...] Diagnosis Multigravida of advanced maternal age in second trimester- Primary Hypothyroidism affecting in second trimester Other specified related conditions, unspecified trimester 23 weeks gestation of state, incidental documented in this encounter Care Teams Nuclear Operations Specialist Relationship Specialty Start Date End Date Zakia Amato MD [address] [place] [address] PCP - General Internal Medicine 05/05/21 documented as of this encounter
--- OUTSIDE RECORDS SUMMARY | 2023-12-03 03:18 | External Medical Summary | Summary of Care ---
Author Name Unknown Organization [facility] Address [address] [place] [facility] [address] Phone [phone] Care Team Providers Care Sales Systems Engineer Name Role Phone Zakia Amato MD Primary Care Provider Reason for Visit * Reason Comments Return Visit Encounter Details Date Type Department Care Team (Late st Contact Info) Description 08/24/2023 3:15 PM EST Office Visit Gynecology/Obstetric s [facility] [address] [place] [address] Meggan iDaz CRNP [address] [place] [address] Multigravida of advanced maternal age in second trimester*; Hypothyroidism affecting in second trimester; Supervision of high risk in second trimester Allergies Active Allergy Reactions Criticality Noted Date Comments Latex Other (Please comment) 11/01/2017 Sensitive Azithromycin 09/25/2008 documented as of this encounter (statuses as of 08/24/2023) Medications Medication Sig Dispensed Refills Start Date End Date Status Vit-Fe Bdh-ZR-Kaols ( FORMULA) 28-0.8-235 MG CAPS Take by mouth. 0 Ac tive Levothyroxine Sodium 125 MCG Oral Tablet (Levoxyl) Take 1 Tablet by mouth in the morning. (at least 30 min prior to breakfast or other meds). 30 Tablet 5 07/20/2023 Active documented as of this encounter (statuses as of 08/24/2023) Active Problems Problem Noted Date Diagnosed Date [...] Overview: Thyroid nodule diagnosed 2013. Biopsied at [place], benign. Last ultrasound 04/2020 noted calcifications, moderately [...] as of this encounter (statuses as of 08/24/2023) Resolved Problems Problem Noted Date Diagnosed Date Resolved Date Subchorionic hemorrhage in first trimester 08/08/2020 08/15/2020 Supervision of normal first 07/09/2020 08/15/2020 AMA (advanced maternal age) primigravida 35+ 0 08/15/2020 Backache 07/08/2020 Overview: wears orthotics and exercises documented as of this encounter (statuses as of 08/24/2023) Immunizations Name Administration Dates Next Due COVID-19 [...] money to get more. Never true 06/28/2023 Lowes Depression Scale Answer Date Recorded Lowes Depression Scale Total 0 04/27/2023 The thought [...] Reading Time Taken Comments Blood Pressure 100/60 08/24/2023 3:08 PM EST Pulse - - Temperature - - Respiratory Rate - - Oxygen Saturation - - Inhaled Oxygen Concentration - - Weight 74.5 kg (164 lb 3.2 oz) 08/24/2023 3:08 P M EST Height 167.6 cm (5' 6") 08/24/2023 3:08 PM EST Body Mass Index 26.5 08/24/2023 3:08 PM EST documented in this encounter Progress Notes * Meggan Diaz CRNP - 08/24/2023 3:31 PM EST 26w2d No concerns. Baby is active. No contractions, bleeding, or LOF. Taking meds as directed. TSH just checked last week. 3rd tri labs printed out- uses [facility]. MARCELA Mcmahon * Merary Ayala LPN - 08/24/2023 3:11 PM EST 26w2d Ob restrictions letter printed for pt at her request, pt denies any concerns 28wk packet provided. documented in this encounter Plan of Treatment Upcoming Encounters Date Type Department Care Team (Late st Contact Info) Description 09/06/2023 2:00 PM EST Office Visit Gynecology/Obstetrics [facility] [address] [place] [id number] Meggan Diaz CRNP [address] [place] [address] Scheduled Orders Name Type Priority Associated Diagnoses Orde r Schedule SYPHILIS ANTIBODY SCREEN WITH REFLEX TO RPR Lab Routine Supervision of high risk in second trimester Ordered: 08/24/2023 CBC WITH WBC DIFFERENTIAL AND ANEMIA REFLEX WORKUP Lab Routine Supervision of high risk in second trimester Ordered: 08/24/2023 50-G GESTATIONAL GLUCOSE, 1 HOUR Lab Routine Supervision of high risk in second trimester Ordered: 08/24/2023 Health Maintenance Due Date Last Done Comments Hepatitis B (1 of 3 - 3-dose series) 1985 HPV/Co-Test 2015 Diabetes Screening 11/07/2022 11/07/2019 COVID-19 Vaccine (3 - 2022- season) 2023 12/08/2020, 11/13/2020 Depression Screening 07/08/2023 07/08/2022 Cervical Cancer Screening 08/07/2024 Pap Smear 08/07/2024 08/07/2021, 03/17, 03/29/2018 TSH 08/19/2024 08/19/2023, 06/18, 06/08/2023, Additional history exists DTaP,Tdap,and Td Vaccines (2 - Td or [...] trimester- Primary Hypothyroidism affecting in second trimester Supervision of high risk in second trimester Unspecified high-risk documented in this encounter Care Teams Sales Systems Engineer Relationship Specialty Start Date End Date Zakia Amato MD [address] [place] [address] PCP - General Internal Medicine 05/05/21 documented as of this encounter
--- OUTSIDE RECORDS SUMMARY | 2023-12-03 03:18 | External Medical Summary | Summary of Care ---
Author Name Unknown Organization [facility] Address [address] [facility] [place] [address] Phone [phone] Care Team Providers Care Senior Production Planner Name Role Phone Zakia Amato MD Primary Care Provider Encounter Details Date Type Department Care Team Description 07/28/2023 Telephone Gynecology/Obstetrics [facility] [address] [place] [id number] Meggan Diaz CRNP [address] [place] [address] Allergies Active Allergy Reactions Severity Noted Date Comments Latex Other (Please comment) 11/01/2017 Sensitive Azithromycin 09/25/2008 documented as of this encounter (statuses as of 07/28/2023) Medications Medication Sig Dispensed Refills Start Date End Date Status Vit-Fe Oja-LI-Yofns ( FORMULA) 28-0.8-235 MG CAPS Take by mouth. 0 Ac tive Levothyroxine Sodium 125 MCG Oral Tablet (Levoxyl) Take 1 Tablet by mouth in the morning. (at least 30 min prior to breakfast or other meds). 30 Tablet 5 07/20/2023 Active documented as of this encounter (statuses as of 07/28/2023) Active Problems Problem Noted Date Supervision of high risk in se cond trimester 06/03/2023 AMA (advanced maternal age) multigravida 35+ 04/27/2023 Overview: Patient will be 38 years-old at time of delivery (OKNSTANTIN 11/28/23). She had low-risk genetic screening with cffDNA. Last Assessment & Plan: CONSIDERATIONS: We reviewed the most pertinent aspects of the following: Advanced maternal age (AMA) refers to a woman with a jacques who will be at the age of 35 or older at the estimated time of delivery and may be associated with increased morbidity. Prior to the appointment the patient has had genetic screening and it was reported as low-risk. Cell-free DNA (cffDNA) screening is a genetic screening option that analyzes maternal blood for DNA that is placental in origin and targets the following conditions: Trisomy 21 (Down syndrome), trisomy 18, trisomy 13, and sex chromosome abnormalities such as monosomy X (Almendarez syndrome), and sex chromosome trisomies (triple X, Klinefelter syndrome, XYY). It may also evaluate for other genetic alterations such as microdeletions, depending on the specific test. It reveals the sex of the fetus but should generally not be performed solely for this indication. The screening test can be performed after 10 weeks gestation. Results provided are NOT diagnostic, but provide a risk estimate. Offer MSAFP only (not Quad Screen) at 16-22 weeks if screening for open neural tube defects is desired. Amniocentesis for diagnosis of chromosomal abnormalities is also available. The risk of complications from the procedure and that risk is 1 in 500 (0.2%). In addition to the risk of chromosomal abnormalities, there is an increased risk of congenital/structural anomalies. RECOMMENDATIONS: Recommend [facility] anatomy ultrasound. History of 2019 novel coronavirus diseas e (COVID-19) 07/08/2022 Thyroid nodule 05/14/2021 Overview: Thyroid nodule diagnosed 2013. Biopsied at [place], benign. Last ultrasound 04/2020 noted calcifications, moderately [...] 04/27/2023 12:00 AM Last Assessment & Plan: CONSIDERATIONS: Discussed with the patient that uncontrolled maternal hypothyroidism is associated with compromised neuropsychological development of the developing fetus in addition to an increased risk of miscarriage, , preeclampsia, placental abruption, low weight infants, and IUFD. These risks are modifiable with thyroid-replacement medications. Thyroid-replacement therapies are safe to use during and essential to normal development. One third of hypothyroid patients will require increased T4 supplementation in . Discussed that she should space her thyroxine dose and her vitamin, iron or calcium doses by 2-3 hours as these can interfere with thyroxine absorption. If hypothyroidism is due to treated Graves' disease, the fetus may be at risk for or goiter/hyperthyroidism due to the residual presence of maternal thyroid receptor antibodies (TRAb). RECOMMENDATIONS: In women with pre- diagnosis of hypothyroidism, recommend assessing TSH every 4-6 weeks until the patient is euthyroid based on TSH (first trimester, 0.1-2.5 mIU/L; second trimester, 0.2-2.5 mIU/L; third trimester, 0.3-2.5 mIU/L). After any adjustment of thyroid replacement dosing, recheck TSH 4-6 weeks later. Once euthyroidism is attained, TSH should be assessed every trimester. In those with previous radioiodine ablation or thyroidectomy, anticipatory increases of T4 replacement by 25% are suggested to decrease the likelihood of significant hypothyroidism in . Maternal Medicine indicated if patient requires an adjustment of her thyroid replacement therapy dosing after the first trimester of . Refer back to MFM if this occurs. She should continue to have growth assessments with MFM while she is clinically hypothyroid. If patient experiences thyroid goiter or nodule during , we recommend that she be referred to endocrinology for evaluation and management. is not a contraindication to fine needle aspiration but should be handled at the discretion of the comic writer. For women with a history of treated Graves' disease, third trimester MFM ultrasound should be performed to evaluate for goiter. Please refer immediately back to MFM for persistent tachycardia on office evaluation as this may also be a symptom of hyperthyroidism. Please check TSI/TRAb after 20 weeks and notify MFM if positive. We will alert pediatrics to the need for possible follow-up. If hypothyroidism is poorly controlled, consider weekly NSTs at 32 weeks. H/O Sarah thyroiditis 11/01/2017 Acquired hypothyroidism 11/01/2017 Irritable bowel syndrome Estimated Date of Delivery Comme nts Yes 11/28/2023 Based on Ultraso und documented as of this encounter (statuses as of 07/28/2023) Resolved Problems Problem Noted Date Resolved Date Subchorionic hemorrhage in first trimester 08/0808/15/2020 Supervision of normal first 07/09/2020 08/15/2020 AMA (advanced maternal age) primigravida 35+ 08/15/2020 Backache 07/08/2020 Overview: wears orthotics and exercises documented as of this encounter (statuses as of 07/28/2023) Immunizations Name Administration Dates Next Due COVID-19 [...] encounter Miscellaneous Notes * Telephone Encounter - Merary Ayala LPN - 07/28/2023 2:53 PM EDT FMLA forms filled-out, given to Nickie to review. documented in this encounter Plan of Treatment Upcoming Encounters Date Type Specialty Care Team Description 08/04/2023 Office Visit Maternal Medicine Loki Cabrera, DO [address] [facility] [place] [address] 08/04/2023 Imaging Radiology 08/24/2023 Office Visit Gynecology Obstetrics Meggan Diaz CRNP [address] [place] [address] Health Maintenance Due Date Last Done Comments Hepatitis B (1 of 3 - 3-dose series) 1985 HPV/Co-Test 2015 Diabetes Screening 11/07/2022 11/07/2019 COVID-19 Vaccine ( season) 2023 12/08/2020, 11/13/2020 Depression Screening 07/08/2023 07/08/2022 TSH 07/14/2024 07/14/2023, 05/18, 04/27/2023, Additional history exists Cervical Cancer Screening [...] filedocumented as of this encounter Care Teams Senior Production Planner Relationship Specialty Start Date End Date Zakia Amato MD [address] [place] [address] PCP - General Internal Medicine 05/05/21 documented as of this encounter
--- OUTSIDE RECORDS SUMMARY | 2023-12-03 03:18 | External Medical Summary | Summary of Care ---
Author Name Unknown Organization [facility] Address [address] [place] [address] Phone [phone] Care Team Providers Care Equity Research Analyst Name Role Phone Zakia Amato MD Primary Care Provider Reason for Referral * Evaluate & Treat - Unlimited Visits (Within 10 days (routine)) - Pending Review Specialty Diagnoses / Procedures Referred By Contac t Referred To Contact Obstetrics/Gynecology / Maternal Medicine Diagnoses Acquired hypothyroidism Steven Diaz CRNP [address] [place] [id number] Referral ID Status Reason Start Date Expiration Date Visits Requested Visits Authorized [id number] Pending Review Specialty Services Required 07/20/[phone] Question Answer Referral Priority Within 10 days (routine) Has the patient had a viability scan? Yes Date performed 04/05/2023 Location performed Radiology Reason for referral Maternal medical condition Please provide additional details hypothyroid, med dose adjustment at 21w Comments /Para: LMP: Patient's last menstrual period was 02/15/2023. Patient is . KONSTANTIN: 11/28/2023, by Ultrasound Pre-Gravid BMI: 22.61 Encounter Details Date Type Department Care Team Description 07/19/2023 Telephone Gynecology/Obstetrics [facility] [address] [place] [address] Steven Diaz CRNP [address] [place] [address] Allergies Active Allergy Reactions Severity Noted Date Comments Latex Other (Please comment) 11/01/2017 Sensitive Azithromycin 09/25/2008 documented as of this encounter (statuses as of 07/20/2023) Medications Medication Sig Dispensed Refills Start Date End Date Status Vit-Fe Pkd-QI-Uazjs ( FORMULA) 28-0.8-235 MG CAPS Take by mouth. 0 Active Levothyroxine Sodium 125 MCG Oral Tablet (Levoxyl) Take 1 Tablet by mouth in the morning. (at least 30 min prior to breakfast or other meds). 30 Tablet 5 07/20/2023 Active Synthroid 100 MCG Oral TabletIndications :Acquired hypothyroidism,Pr egnant and not yet delivered, first trimester Take 1 Tablet by mouth in the morning. (at least 30 min prior to breakfast or other meds). 30 Tablet 11 04/01/2023 07/20/2023 Discontinued (Medication/ Dose Changed) documented as of this encounter (statuses as of 07/20/2023) Active Problems Problem Noted Date Normal 06/03/2023 AMA (advanced maternal age) multigravida 35+ 04/27/2023 Overview: Qnatal low risk History of 2019 novel coronavirus diseas e (COVID-19) 07/08/2022 Thyroid nodule 05/14/2021 Overview: Thyroid nodule diagnosed 2013. Biopsied at [place], benign. Last ultrasound 04/2020 noted calcifications, moderately suspicious, continued surveillance recommended. 04/2023: nodule stable. ENT recommended repeat US by PCP in one year. Hypothyroidism affecting 07/09 Overview: Images from the original note were not included. Result Notes 1 HM Topic Component Ref Range & Units 1 mo ago TSH - OUTSIDE LAB 0.40 - 4.50 MIU/L 2.88 T4, FREE - OUTSIDE LAB 0.8 - 1.8 NG/DL 1.1 Resulting Agency OUTSIDE LAB (SEE SCANNED REPORT) Specimen Collected: 04/27/23 H/O Sarah thyroiditis 11/01/2017 Acquired hypothyroidism 11/01/2017 Irritable bowel syndrome Estimated Date of Delivery Comme nts Yes 11/28/2023 Based on Ultraso und documented as of this encounter (statuses as of 07/20/2023) Resolved Problems Problem Noted Date Resolved Date Subchorionic hemorrhage in first trimester 08/0808/15/2020 Supervision of normal first 07/09/2020 08/15/2020 AMA (advanced maternal age) primigravida 35+ 08/15/2020 Backache 07/08/2020 Overview: wears orthotics and exercises documented as of this encounter (statuses as of 07/20/2023) Immunizations Name Administration Dates Next Due COVID-19 [...] 0.6 oz pur e alcohol) 1 drink/week Food Insecurity Answer Date Recorded Within the [...] Telephone Encounter - Charity Jones LPN - 07/20/2023 3:41 PM EDT Myg sent * Telephone Encounter - MARCELA Mcmahon - 07/20/2023 3:17 PM EDT MFM will do a more detailed ultrasound. There can be cause for concern when maternal thyroid is notwell managed in that the baby could develop tyroid issues and/or a goiter. I believe her PCP adjusted her meds the first time during , not us. I truly can not speak as to why she was not referred at that time, as I was not the one to change the dose of medication. * Telephone Encounter - Radha Gordon RN - 07/20/2023 1:45 PM EDT Patient calling back in. Questioning referral to MFM. Asking what they would do differently then what she is already having done . Patient advised that it is not uncommon for us to refer a patient toMFM for additional evaluation and recommendations for care throughout , and that ultimately it is her choice to go although we recommend this. Patient asking what additional testing they maydo that we cannot. States that this is the second time in the that her medication has been adjusted and she wasn't referred the first time. Please advise. Ok to send my G to patient. * Addendum Note - MARCELA Mcmahon - 07/20/2023 9:31 AM EDTAddended by: STEVEN DIAZ on: 07/20/2023 09:31 AM Modules accepted: Orders * Telephone Encounter - MARCELA Mcmahon - 07/20/2023 9:31 AM EDT Medication sent. MF referral placed. * Telephone Encounter - Radha Gordon RN - 07/19/2023 4:26 PM EDT Patient called back in made aware. She is agreeable to dose change. Patient also agreeable to MFM referral. * Telephone Encounter - Radha Gordon RN - 07/19/2023 3:32 PM EDT Attempted to call patient. No answer. LVM to return call. * Telephone Encounter - MARCELA Mcmahon - 07/19/2023 3:16 PM EDT TSH 3.01. this is slightly higher than we would like in . TSH 3.01, we like under 2.5 in . Would like to increase her dose of thyroid medication. This has been managed by her PCP earlier in , moiz. Also, whenever we adjust thyroid meds in , the recommendation is referral to MFM. Please make sure she is agreeable and route back. documented in this encounter Plan of Treatment Upcoming Encounters Date Type Specialty Care Team Description 07/26/2023 Imaging Radiology 07/27/2023 Telemedicine Maternal Medicine Angelica Michelle CRNP [address], [place] [phone] 07/28/2023 Office Visit Gynecology Obstetrics Steven Diaz CRNP [address] [place] [address] 08/04/2023 Office Visit Maternal Medicine Loki Cabrera DO [address], [place] [id number] 08/04/2023 Imaging Radiology Scheduled Orders Name Type Priority Associated Diagnoses Orde r Schedule MFM US MATERNAL 1ST FETUS Medical Imaging Routine Acquired hypothyroidism Other specified related conditions, second trimester Expected: 07/20/2023, Expires: 08/20/2024 Scheduled Referrals Name Type Priority Associated Diagnoses Orde r Schedule MATERNAL MEDICINE REFERRAL OP Referral Within 10 days (routine) Acquired hypothyroidism Ordered: 07/20/2023 Health Maintenance Due Date Last Done Comments [...] as of this encounter Visit Diagnoses Diagnosis Acquired hypothyroidism Unspecified hypothyroidism and not yet delivered, first trimester Other specified related conditions, second trimester documented in this encounter Care Teams Equity Research Analyst Relationship Specialty Start Date End Date Zakia Amato MD [address] [place] [address] PCP - General Internal Medicine 05/05/21 documented as of this encounter
--- OUTSIDE RECORDS SUMMARY | 2023-12-03 03:18 | External Medical Summary | Summary of Care ---
Author Name Unknown Organization [facility] Address [address] [place] [address] Phone [phone] Care Team Providers Care Junior Systems Administrator Name Role Phone Zakia Amato MD Primary Care Provider Reason for Visit * Reason Comments Consultation Supervision of High Risk * Evaluate & Treat - Unlimited Visits (Within 10 days (routine)) - Authorized Specialty Diagnoses / Procedures Referred By Contac t Referred To Contact Obstetrics/Gynecology / Maternal Medicine Diagnoses Acquired hypothyroidism Meggan Diaz CRNP [address] [place] [address] Referral ID Status Reason Start Date Expiration Date Visits Requested Visits Authorized [id number] Authorized Specialty Services Required 07/20/2023 07/20/[phone] Encounter Details Date Type Department Care Team Description 07/27/2023 Telemedicine Supervisor [employer] Obstetric MF [facility] [place] [address] [place] [address] Angelica Michelle CRNP [address] [place] [address] Multigravida of advanced maternal age in second trimester*; Hypothyroidism affecting in second trimester; Supervision of high risk in second trimester Allergies Active Allergy Reactions Severity Noted Date Comments Latex Other (Please comment) 11/01/2017 Sensitive Azithromycin 09/25/2008 documented as of this encounter (statuses as of 07/27/2023) Medications Medication Sig Dispensed Refills Start Date End Date Status Vit-Fe Bjw-IS-Mffhm ( FORMULA) 28-0.8-235 MG CAPS Take by mouth. 0 Ac tive Levothyroxine Sodium 125 MCG Oral Tablet (Levoxyl) Take 1 Tablet by mouth in the morning. (at least 30 min prior to breakfast or other meds). 30 Tablet 5 07/20/2023 Active documented as of this encounter (statuses as of 07/27/2023) Active Problems Problem Noted Date Supervision of high risk in se cond trimester 06/03/2023 AMA (advanced maternal age) multigravida 35+ 04/27/2023 Overview: Patient will be 38 years-old at time of delivery ([place]IN 11/28/23). She had low-risk genetic screening with [...] increased risk of congenital/structural anomalies. RECOMMENDATIONS: Recommend MFM anatomy ultrasound. History of 2019 novel coronavirus diseas e (COVID-19) 07/08/2022 Thyroid nodule 05/14/2021 Overview: Thyroid nodule diagnosed 2013. Biopsied at [place], benign. Last ultrasound 04/2020 noted calcifications, moderately [...] be handled at the discretion of the stacker. For women with a history of treated [...] as of this encounter (statuses as of 07/27/2023) Resolved Problems Problem Noted Date Resolved Date Subchorionic hemorrhage in first trimester 08/0808/15/2020 Supervision of normal first 07/09/2020 08/15/2020 AMA (advanced maternal age) primigravida 35+ 08/15/2020 Backache 07/08/2020 Overview: wears orthotics and exercises documented as of this encounter (statuses as of 07/27/2023) Immunizations Name Administration Dates Next Due COVID-19 [...] as of this encounter Progress Notes * MARCELA Schmitz - 07/27/2023 3:02 PM EDT MATERNAL MEDICINE CONSULT Kimberly Arrington 07/27/23 REFERRING PROVIDER: MARCELA Mcmahon Patient location: HOME. I was not in a hospital or clinic location. After connecting through televideo, patient was verified with two unique identifiers. Patient (or authorized legal sales representative facility services) was then informed that this was a Telemedicine visit and being conducted confidentially over secure lines. Methods to assure confidentiality were taken. Patient acknowledged consent and understanding of privacy and security of the Telemedicine visit. The patient agreed to participate. Kimberly Arrington is a 38 year old with intrauterine at 22w2d (Estimated Date of Delivery: 11/28/23 by 6w1d ultrasound) who presents today for an MFM consult due to hypothyroidism requiring medication adjustments, advanced maternal age (AMA). HPI/CURRENT : pre- BMI=normal (63.5 kg (140 lb); 5' 6"); FOB #1; complicated by above. Genetic testing: cffDNA (Qnatal) low-risk, female OB3P0 Aura Walker Problems (from 04/01/23 to present) Problem Noted Resolved Supervision of high risk in second trimester AMA (advanced maternal age) multigravida 35+ Overview Addendum 07/27/2023 3:00 PM by MARCELA Schmitz Patient will be 38 years-old at time of delivery ([place]STANTIN 11/28/23). She had low-risk genetic screening with cffDNA. 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 Patient has required multiple med adjustments in this . TSH Results: Lab Results Component Value Date/Time TSH - OUTSIDE LAB 3.01 07/14/2023 12:00 AM TSH - OUTSIDE LAB 2.70 06/08/2023 12:00 AM TSH - OUTSIDE LAB 2.88 04/27/2023 12:00 AM I have reviewed this patient's previous OB ultrasound reports, pertinent labwork and testing provided by her referring OB provider. Current Outpatient Medications Medication Sig Dispense Refill Levothyroxine Sodium 125 MCG Oral Tablet (Levoxyl) Take 1 Tablet by mouth in the morning. (at least30 min prior to breakfast or other meds). 30 Tablet 5 Vit-Fe Tmd-SD-Scfyb ( FORMULA) 28-0.8-235 MG CAPS Take by mouth. No current facility-administered medications for this visit. Review of patient's allergies indicates: Allergen Reactions Latex Other (Please comment) Sensitive Zithromax [Azithromycin] OB History Para Term AB Living 3 0 0 0 2 0 SAB IAB Ectopic Multiple Live Births 2 0 0 0 0 # Outcome Date GA Lbr Alexey/2nd Weight Sex Delivery Anes PTL Lv 3 Current 2 SAB 10/20/20 6w0d Biochemical Comments: FOB #1 1 SAB 08/08/20 11w5d AB, SP, 1 Comments: FOB #1 Obstetric Comments 2023: FOB #1 Christopher Jeong 36 YO. Healthy. No children from outside of this relationship. Past Medical History: Diagnosis Date Backache wears orthotics and exercises Sarah's disease Hypothyroidism 2009 Thyroid nodule - US and biopsied regularly Other and unspecified noninfectious gastroenteritis and colitis(558.9) Thyroid nodule Past Surgical History: Procedure Laterality Date DENTAL SURGERY PROCEDURE NEC 2007 DILATION AND CURETTAGE (D&C) 08/15/2020 missed Ab LAPAROSCOPY;APPENDECTOMY 09/21/2018 09/21/2018 laparoscopic appendectomy - perferation - [facility] Dr. Hudson Martin NEEDLE BIOPSY OF THYROID GLAND ORAL SURGERY PROCEDURE 1996 minor Family History Problem Relation Age of Onset Gastro-intestinal disorder Mother IBS Musculo-skeletal Disorder Mother Neurological Disorder Mother migraines Endocrine Disorder Mother hyperlipidemia Lupus Mother Cancer Mother neuro-endocrine cancer Depression Mother Other (Other) Mother fibromyalgia Dementia Mother Lives in Assisted Living No Past Hx Father was in [facility] Gastro-intestinal disorder Father diverticulitis Heart attack Father Neurological Disorder Grandmother (Maternal) epilepsy Alcohol and Other Disorders Associated Grandfather (Maternal) alcoholic Heart attack Grandfather (Maternal) Emphysema Grandfather (Maternal) Breast Cancer Grandmother (Paternal) diagnosed in her 40s; Heart Disorder Grandfather (Paternal) Alcohol and Other Disorders Associated Grandfather (Paternal) alcoholic Autoimmune disease Aunt (Maternal) lupus COPD Aunt (Paternal) Alcohol and Other Disorders Associated Aunt (Paternal) alcoholic Stroke Uncle (Paternal) Social History Tobacco Use Smoking status: Never Smokeless tobacco: Never Vaping Use Vaping Use: Never used Substance Use Topics Alcohol use: Not Currently Comment: Denies in Drug use: No REVIEW OF SYSTEMS: headaches: no nausea/vomiting: denies reports movement: yes abdominal pain/tenderness/cramping/contractions: +occasional stomach pain after eating too much vaginal bleeding: no vaginal leaking of fluid: no all other systems negative PHYSICAL EXAM: LMP 02/15/2023 General: Well appearing Psych: Alert to time, place, and person and Pleasant DISCUSSION/RECOMMENDATIONS: Problem List Items Addressed This Visit OB3P0 Aura Walker Hypothyroidism affecting CONSIDERATIONS: Discussed with the patient that uncontrolled maternal hypothyroidism is associated with compromisedneuropsychological development of the developing fetus in addition to an increased risk of miscarriage, , preeclampsia, placental abruption, low weight infants, and IUFD. These risks are modifiable with thyroid-replacement medications. Thyroid-replacement therapies are safe to use during and essential to normal development. One third of hypothyroid patients willrequire increased T4 supplementation in . Discussed that she should space her thyroxine dose and her vitamin, iron or calcium doses by 2-3 hours as these can interfere with thyroxine absorption. If hypothyroidism is due to treated Graves' disease, the fetus may be at risk for or neonatalgoiter/hyperthyroidism due to the residual presence of maternal thyroid receptor antibodies (TRAb). RECOMMENDATIONS: In women with pre- diagnosis of hypothyroidism, recommend assessing TSH every 4-6 weeks until the patient is euthyroid based on TSH (first trimester, 0.1-2.5 mIU/L; second trimester, 0.2-2.5mIU/L; third trimester, 0.3-2.5 mIU/L). After any adjustment [...] during , we recommend that she be referredto endocrinology for evaluation and management. is not a contraindication to fine needle aspiration but should be handled at the discretion of the stacker. For women with a history of treated [...] controlled, consider weekly NSTs at 32 weeks. AMA (advanced maternal age) multigravida 35+ - Primary CONSIDERATIONS: We reviewed the most pertinent aspects [...] targets the following conditions: Trisomy 21 (Down syndrome),trisomy 18, trisomy 13, and sex chromosome abnormalities [...] increased risk of congenital/structural anomalies. RECOMMENDATIONS: Recommend MFM anatomy ultrasound. Supervision of high risk in second trimester Follow up ultrasound with Maternal Medicine is scheduled on 08/[address] Cabrera for anatomy scan secondary to hypothyroidism requiring medication adjustments, advanced maternal age (AMA). Patient is aware of upcoming MF appointment. MARCELA Schmitz 07/27/2023 3:02 PM documented in this encounter Miscellaneous Notes * Assessment & Plan Note - MARCELA Schmitz - 07/27/2023 3:00 PM EDT Associated Problem(s): AMA (advanced maternal age) multigravida 35+ CONSIDERATIONS: We reviewed the most pertinent aspects [...] targets the following conditions: Trisomy 21 (Down syndrome),trisomy 18, trisomy 13, and sex chromosome abnormalities [...] increased risk of congenital/structural anomalies. RECOMMENDATIONS: Recommend MF anatomy ultrasound. * Assessment & Plan Note - MARCELA Schmitz - 07/27/2023 2:57 PM EDT Associated Problem(s): Hypothyroidism affecting CONSIDERATIONS: Discussed with the patient that uncontrolled maternal hypothyroidism is associated with compromisedneuropsychological development of the developing fetus in addition to an increased risk of miscarriage, , preeclampsia, placental abruption, low weight infants, and IUFD. These risks are modifiable with thyroid-replacement medications. Thyroid-replacement therapies are safe to use during and essential to normal development. One third of hypothyroid patients willrequire increased T4 supplementation in . Discussed that she should space her thyroxine dose and her vitamin, iron or calcium doses by 2-3 hours as these can interfere with thyroxine absorption. If hypothyroidism is due to treated Graves' disease, the fetus may be at risk for or neonatalgoiter/hyperthyroidism due to the residual presence of maternal thyroid receptor antibodies (TRAb). RECOMMENDATIONS: In women with pre- diagnosis of hypothyroidism, recommend assessing TSH every 4-6 weeks until the patient is euthyroid based on TSH (first trimester, 0.1-2.5 mIU/L; second trimester, 0.2-2.5mIU/L; third trimester, 0.3-2.5 mIU/L). After any adjustment [...] first trimester of . Refer back to [facility] if this occurs. She should continue to have growth assessments with MFM while she is clinically hypothyroid. If patient experiences thyroid goiter or nodule during , we recommend that she be referredto endocrinology for evaluation and management. is not a contraindication to fine needle aspiration but should be handled at the discretion of the stacker. For women with a history of treated [...] controlled, consider weekly NSTs at 32 weeks. documented in this encounter Plan of Treatment Upcoming Encounters Date Type Specialty Care Team Description 07/28/2023 Office Visit Gynecology Obstetrics Meggan Diaz CRNP [address] [place] [address] 08/04/2023 Office Visit Maternal Medicine Loki Cabrera, DO [address] [place] [address] 08/04/2023 Imaging Radiology Scheduled Referrals Name Type Priority Associated Diagnoses Orde r Schedule MATERNAL MEDICINE REFERRAL OP Referral Within 10 days (routine) Acquired hypothyroidism Ordered: 07/20/2023 Health Maintenance Due Date Last Done Comments Hepatitis B (1 of 3 - 3-dose series) 1985 HPV/Co-Test 2015 Diabetes Screening 11/07/2022 11/07/2019 COVID-19 Vaccine ( season) 2023 12/08/2020, 11/13/2020 Depression Screening 07/08/2023 07/08/2022 TSH 07/14/2024 07/14/2023, 08/12/2022, 04/27/2023, Additional history exists Cervical Cancer Screening [...] high-risk documented in this encounter Care Teams Junior Systems Administrator Relationship Specialty Start Date End Date Zakia Amato MD [address] [place] [address] PCP - General Internal Medicine 05/05/21 documented as of this encounter
--- OUTSIDE RECORDS SUMMARY | 2023-12-03 03:18 | External Medical Summary | Summary of Care ---
Author Name Unknown Organization [facility] Address [address] [place] [address] Phone [phone] Care Team Providers Care Director Physical Name Role Phone Zakia Amato MD Primary Care Provider Reason for Referral * Evaluate & Treat - Unlimited Visits (Within 10 days (routine)) - Pending Review Specialty Diagnoses / Procedures Referred By Contac t Referred To Contact Obstetrics/Gynecology / Maternal Medicine Diagnoses Acquired hypothyroidism Steven Diaz CRNP [address] [place] [address] Referral ID Status Reason Start Date Expiration Date Visits Requested Visits Authorized [id number] Pending Review Specialty Services Required 07/20/2023 999 [...] Kvng Walker [address] [place] [address] Steven Diaz CRNP [address] [place] [address] Allergies Active Allergy Reactions Severity Noted Date Comments Latex Other (Please comment) 11/01/2017 Sensitive Azithromycin 09/25/2008 documented as of this encounter (statuses as of 07/20/2023) Medications Medication Sig Dispensed Refills Start Date End Date Status Vit-Fe Qqw-BO-Lcmms ( FORMULA) 28-0.8-235 MG CAPS Take by [...] Overview: Thyroid nodule diagnosed 2013. Biopsied at [place], benign. Last ultrasound 04/2020 noted calcifications, [...] encounter Miscellaneous Notes * Telephone Encounter - Radha Gordon RN - 07/20/2023 1:45 PM EDT Patient calling back in. Questioning referral to [facility]. Asking what they would do differently then [...] - 07/20/2023 9:31 AM EDT Medication sent. MFM referral placed. * Telephone Encounter - Radha [...] Maternal Medicine Angelica Michelle CRNP [address] [place] [address] 07/28/2023 Office Visit Gynecology Obstetrics Steven Diaz CRNP [address] [place] [address] 08/04/2023 Office Visit Maternal Medicine Loki Cabrera DO [address] [place] [address] 08/04/2023 Imaging Radiology Scheduled Orders Name Type [...] Diabetes Screening 11/07/2022 11/07/2019 COVID-19 Vaccine (3 2022- season) 2023 12/08/2020, 11/13/2020 Depression Screening [...] trimester documented in this encounter Care Teams Director Physical Relationship Specialty Start Date End Date Zakia Amato MD [address] [place] [address] PCP - General Internal Medicine 05/05/21 documented as of this encounter
--- OUTSIDE RECORDS SUMMARY | 2023-12-03 03:18 | External Medical Summary | Summary of Care ---
Author Name Unknown Organization [facility] Address [address] [place] [facility] [place] [address] Phone [phone] Care Team Providers Care Reconditioner Name Role Phone Zakia Amato MD Primary Care Provider Reason for Visit * Reason Comments Return Visit Encounter Details Date Type Department Care Team Description 07/28/2023 [facility] [address] [place] [address] Meggan Diaz CRNP [address] [place] [address] Multigravida of advanced maternal age in second trimester*; Hypothyroidism affecting in second trimester; Supervision of high risk in second trimester Allergies Active Allergy Reactions Severity Noted Date Comments Latex Other (Please comment) 11/01/2017 Sensitive Azithromycin 09/25/2008 documented as of this encounter (statuses as of 07/28/2023) Medications Medication Sig Dispensed Refills Start Date End Date Status Vit-Fe Zqc-JL-Qlmwb ( FORMULA) 28-0.8-235 MG CAPS Take by [...] increased risk of congenital/structural anomalies. RECOMMENDATIONS: Recommend [facility] anatomy ultrasound. History of 2019 novel coronavirus diseas e (COVID-19) 07/08/2022 Thyroid nodule 05/14/2021 Overview: Thyroid nodule diagnosed 2013. Biopsied at [place], benign. Last ultrasound 04/2020 noted calcifications, moderately [...] be handled at the discretion of the patch washer. For women with a history of treated [...] Sign Reading Time Taken Comments Blood Pressure 102/70 07/28/2023 2:09 PM EDT Pulse - - Temperature - - Respiratory Rate - - Oxygen Saturation - - Inhaled Oxygen Concentration - - Weight 72.6 kg (160 lb) 07/28/2023 2:09 PM EDT Height 167.6 cm (5' 6") 07/28/2023 2:09 PM EDT Body Mass Index 25.82 07/28/2023 2:09 PM EDT documented in this encounter Progress Notes * MARCELA Mcmahon - 07/28/2023 2:37 PM EDT 22w3d No concerns. Had MFM visit yesterday for hypothyroid with dose change. Has growth u/s with MFM upcoming. Baby moving well. No contractions, bleeding, or LOF. Labs given for [facility] for TSH. MARCELA Mcmahon * Merary Ayala LPN - 07/28/2023 2:15 PM EDT 22w3d Pt denies any concerns documented in this encounter Plan of Treatment Upcoming Encounters Date Type Specialty Care Team Description 08/04/2023 Office Visit Maternal Medicine Loki Cabrera, DO [address] [facility] [place] [address] 08/04/2023 Imaging Radiology 08/24/2023 Office Visit Gynecology Obstetrics Meggan Diaz CRNP [address] [place] [address] Scheduled Orders Name Type Priority Associated Diagnoses Orde r Schedule TSH Lab Routine Hypothyroidism affecting in second trimester Ordered: 07/28/2023 T4, FREE Lab Routine Hypothyroidism affecting in second trimester Ordered: 07/28/2023 Health Maintenance Due Date Last Done Comments Hepatitis B (1 of 3 - 3-dose series) 1985 HPV/Co-Test 2015 Diabetes Screening 11/07/2022 11/07/2019 COVID-19 Vaccine (3 - season) 2023 12/08/2020, 11/13/2020 Depression Screening 07/08/2023 [...] high-risk documented in this encounter Care Teams Reconditioner Relationship Specialty Start Date End Date Zakia Amato MD [address] [place] [address] PCP - General Internal Medicine 05/05/21 documented as of this encounter
--- OUTSIDE RECORDS SUMMARY | 2023-12-03 03:18 | External Medical Summary | Summary of Care ---
Author Name Unknown Organization [facility] Address [address] [place] [place] [address] Phone [phone] Care Team Providers Care Manager Of It Name Role Phone Zakia Amato MD Primary Care Provider Reason for Visit * Reason Comments Return Visit Encounter Details Date Type Department Care Team Description 07/28/2023 [facility] [address] [place] [address] Meggan Diaz CRNP [address] [place] [address] Multigravida of advanced maternal age in second trimester*; Hypothyroidism affecting in second trimester; Supervision of high risk in second trimester Allergies Active Allergy Reactions Severity Noted Date Comments Latex Other (Please comment) 11/01/2017 Sensitive Azithromycin 09/25/2008 documented as of this encounter (statuses as of 07/28/2023) Medications Medication Sig Dispensed Refills Start Date End Date Status Vit-Fe Afq-DC-Rzbha ( FORMULA) 28-0.8-235 MG CAPS Take by [...] increased risk of congenital/structural anomalies. RECOMMENDATIONS: Recommend [facility] anatomy ultrasound. History of 2019 novel coronavirus diseas e (COVID-19) 07/08/2022 Thyroid nodule 05/14/2021 Overview: Thyroid nodule diagnosed 2013. Biopsied at [place], benign. Last ultrasound 04/2020 noted calcifications, moderately [...] be handled at the discretion of the cryptologic technician. For women with a history of treated [...] Maternal Medicine Loki Cabrera, DO [address] [facility] [place] [address] 08/04/2023 Imaging Radiology 08/24/2023 Office Visit Gynecology Obstetrics Meggan Diaz CRNP [address] [place] [address] Scheduled Orders Name Type Priority Associated Diagnoses [...] high-risk documented in this encounter Care Teams Manager Of It Relationship Specialty Start Date End Date Zakia Amato MD [address] [place] [address] PCP - General Internal Medicine 05/05/21 documented as of this encounter
--- OUTSIDE RECORDS SUMMARY | 2023-12-03 03:18 | External Medical Summary | Summary of Care ---
Author Name Unknown Organization [facility] Address [address] [facility] [place] [address] Phone [phone] Care Team Providers Care Cloud Architect Name Role Phone Zakia Amato MD Primary Care Provider Encounter Details Date Type Department Care Team Description 08/04/2023 Telephone Gynecology/Obstetrics [facility] [address] [place] [id number] Meggan Diaz CRNP [address] [place] [address] Allergies Active Allergy Reactions Severity Noted Date Comments Latex Other (Please comment) 11/01/2017 Sensitive Azithromycin 09/25/2008 documented as of this encounter (statuses as of 08/04/2023) Medications Medication Sig Dispensed Refills Start Date End Date Status Vit-Fe Lte-ES-Lngsw ( FORMULA) 28-0.8-235 MG CAPS Take by [...] increased risk of congenital/structural anomalies. RECOMMENDATIONS: Recommend [facility] anatomy ultrasound. History of 2019 novel coronavirus diseas e (COVID-19) 07/08/2022 Thyroid nodule 05/14/2021 Overview: Thyroid nodule diagnosed 2013. Biopsied at [place], benign. Last ultrasound 04/2020 noted calcifications, moderately [...] be handled at the discretion of the admissions evaluator. For women with a history of treated [...] Telephone Encounter - Charity Jones LPN - 08/04/2023 9:43 AM EDT Myg sent for FMLA forms documented in this encounter Plan of Treatment Upcoming Encounters Date Type Specialty Care Team Description 08/04/2023 Office Visit Maternal Medicine Loki Cabrera, DO [address] [facility] [place] [address] 08/04/2023 Imaging Radiology 08/24/2023 Office Visit Gynecology Obstetrics Meggan Diaz CRNP [address] [place] [address] Health Maintenance Due Date Last Done Comments [...] filedocumented as of this encounter Care Teams Cloud Architect Relationship Specialty Start Date End Date Zakia Amato MD [address] [place] [address] PCP - General Internal Medicine 05/05/21 documented as of this encounter
--- OUTSIDE RECORDS SUMMARY | 2023-12-03 03:18 | External Medical Summary | Summary of Care ---
Author Name Unknown Organization [facility] Address [address] [place] [facility] [place] [address] Phone [phone] Care Team Providers Care Printer Floor Covering Assistant Name Role Phone Zakia Amato MD Primary Care Provider Reason for Visit * Reason Onset Date Comments Medication Refill 08/11/2023 Encounter Details Date Type Department Care Team (Late st Contact Info) Description 08/11/2023 Refill Gynecology/Obstetrics [facility] [address] [place] [address] Meggan Diaz CRNP [address] [place] [address] Allergies Active Allergy Reactions Criticality Noted Date Comments Latex Other (Please comment) 11/01/2017 Sensitive Azithromycin 09/25/2008 documented as of this encounter (statuses as of 08/11/2023) Medications Medication Sig Dispensed Refills Start Date End Date Status Vit-Fe Qmb-WI-Yzmdy ( FORMULA) 28-0.8-235 MG CAPS Take by mouth. 0 Ac tive Levothyroxine Sodium 125 MCG Oral Tablet (Levoxyl) Take 1 Tablet by mouth in the morning. (at least 30 min prior to breakfast or other meds). 30 Tablet 5 07/20/2023 Active documented as of this encounter (statuses as of 08/11/2023) Active Problems Problem Noted Date Diagnosed Date Supervision of high risk in [facility] 06/03/2023 AMA (advanced maternal age) multigravida [...] Overview: Thyroid nodule diagnosed 2013. Biopsied at [place], benign. Last ultrasound 04/2020 noted calcifications, moderately [...] as of this encounter (statuses as of 08/11/2023) Resolved Problems Problem Noted Date Diagnosed Date Resolved Date Subchorionic hemorrhage in first trimester 08/08/2020 08/15/2020 Supervision of normal first 07/09/2020 08/15/2020 AMA (advanced maternal age) primigravida 35+ 0 08/15/2020 Backache 07/08/2020 Overview: wears orthotics and exercises documented as of this encounter (statuses as of 08/11/2023) Immunizations Name Administration Dates Next Due COVID-19 [...] money to get more. Never true 06/28/2023 Niss[place] Depression Scale Answer Date Recorded Niss[place] Depression Scale Total 0 04/27/2023 The thought [...] Telephone Encounter - Florinda Holland LPN - 08/11/2023 11:16 AM EDTRefused Prescriptions: Disp Refills Levothyroxine Sodium 125 MCG Oral Tablet (*30 Tab*5 Sig: Take 1Tablet by mouth in the morning. (at least 30 min prior to breakfast or other meds).Refused By: FLORINDA HOLLAND LReason for Refusal: Not indicated documented in this encounter Plan of Treatment Upcoming Encounters Date Type Department Care Team (Late st Contact Info) Description 08/24/2023 3:15 PM EST [facility] [address] [place] [address] Meggan Diaz CRNP [address] [place] [address] Health Maintenance Due Date Last Done Comments [...] filedocumented as of this encounter Care Teams Printer Floor Covering Assistant Relationship Specialty Start Date End Date Zakia Amato MD [address] [place] [address] PCP - General Internal Medicine 05/05/21 documented as of this encounter
--- OUTSIDE RECORDS SUMMARY | 2023-12-03 03:18 | External Medical Summary | Summary of Care ---
Author Name Unknown Organization [facility] Address [address] [place] [address] Phone [phone] Care Team Providers Care Plate Worker Helper Name Role Phone Zakia Amato MD Primary Care Provider Reason for Referral * Evaluate & Treat - Unlimited Visits (Within 10 days (routine)) - Pending Review Specialty Diagnoses / Procedures Referred By Contac t Referred To Contact Obstetrics/Gynecology / Maternal Medicine Diagnoses Acquired hypothyroidism Steven Diaz CRNP [address] [place] [address] Referral ID Status Reason Start Date Expiration Date Visits Requested Visits Authorized [id number] Pending Review Specialty Services Required 07/20/2023 999 [...] [facility] [address] [place] [address] Steven Diaz CRNP [address] [place] [address] Allergies Active Allergy Reactions Severity Noted Date Comments Latex Other (Please comment) 11/01/2017 Sensitive Azithromycin 09/25/2008 documented as of this encounter (statuses as of 07/20/2023) Medications Medication Sig Dispensed Refills Start Date End Date Status Vit-Fe Mmb-GP-Arqtp ( FORMULA) 28-0.8-235 MG CAPS Take by [...] Overview: Thyroid nodule diagnosed 2013. Biopsied at [place], benign. Last ultrasound 04/2020 noted calcifications, moderately [...] encounter Miscellaneous Notes * Telephone Encounter - MARCELA Mcmahon - [...] managed by her PCP earlier in , fyi. Also, whenever we adjust thyroid meds in , the recommendation is referral to MFM. Please make sure she is agreeable and route back. documented in this encounter Plan of Treatment Upcoming Encounters Date Type Specialty Care Team Description 07/26/2023 Imaging Radiology 07/27/2023 Telemedicine Maternal Medicine Angelica Michelle CRNP [address], [place] [id number] 07/28/2023 Office Visit Gynecology Obstetrics tSeven Diaz CRNP [address] [place] [address] 08/04/2023 Office Visit Maternal Medicine Loki Cabrera DO [address] [place] [address] 08/04/2023 Imaging Radiology Scheduled Orders Name Type [...] Depression Screening 07/08/2023 07/08/2022 TSH 07/14/2024 07/14/2023, 08/2 12/2022, 04/27/2023, Additional history exists Cervical Cancer Screening [...] trimester documented in this encounter Care Teams Plate Worker Helper Relationship Specialty Start Date End Date Zakia Amato MD [address] [place] [address] PCP - General Internal Medicine 05/05/21 documented as of this encounter
--- OUTSIDE RECORDS SUMMARY | 2023-12-03 03:18 | External Medical Summary | Summary of Care ---
Author Name Unknown Organization [facility] Address [address] [place] [address] Phone [phone] Care Team Providers Care Telephone Triage Nurse Name Role Phone Zakia Amato MD Primary Care Provider Reason for Visit * Reason Onset Date Comments Advice 07/22/2023 Encounter Details Date Type Department Care Team Description 07/22/2023 Telephone Radiology [facility] [address] [place] [address] Meggan Diaz CRNP [address] [place] [address] Advice Allergies Active Allergy Reactions Severity Noted Date Comments Latex Other (Please comment) 11/01/2017 Sensitive Azithromycin 09/25/2008 documented as of this encounter (statuses as of 07/22/2023) Medications Medication Sig Dispensed Refills Start Date End Date Status Vit-Fe Iko-MX-Arinp ( FORMULA) 28-0.8-235 MG CAPS Take by mouth. 0 Ac tive Levothyroxine Sodium 125 MCG Oral Tablet (Levoxyl) Take 1 Tablet by mouth in the morning. (at least 30 min prior to breakfast or other meds). 30 Tablet 5 07/20/2023 Active documented as of this encounter (statuses as of 07/22/2023) Active Problems Problem Noted Date Normal 06/03/2023 AMA (advanced maternal age) multigravida 35+ 04/27/2023 Overview: Qnatal low risk History of 2019 novel coronavirus diseas e (COVID-19) 07/08/2022 Thyroid nodule 05/14/2021 Overview: Thyroid nodule diagnosed 2013. Biopsied at [place], benign. Last ultrasound 04/2020 noted calcifications, moderately [...] as of this encounter (statuses as of 07/22/2023) Resolved Problems Problem Noted Date Resolved Date Subchorionic hemorrhage in first trimester 08/0808/15/2020 Supervision of normal first 07/09/2020 08/15/2020 AMA (advanced maternal age) primigravida 35+ 08/15/2020 Backache 07/08/2020 Overview: wears orthotics and exercises documented as of this encounter (statuses as of 07/22/2023) Immunizations Name Administration Dates Next Due COVID-19 [...] Telephone Encounter - Charity Jones LPN - 07/22/2023 8:32 AM EDT Pt called back and I reviewed with pt that US with us can be cancelled due to seeing MFM on 08/04 per Meggan. Pt verbalized understanding and said yes to cancelling US with us on 07/26 * Telephone Encounter - Florinda Holland LPN - 07/22/2023 8:28 AM EDT left message for patient to call office * Telephone Encounter - MARCELA Mcmahon - 07/22/2023 8:10 AM EDT Yes, the ultrasound here can be cancelled. Please notify pt. * Telephone Encounter - Johanny Smallwood RDMS - 07/22/2023 7:36 AM EDT Patient is scheduled for her anatomy scan on 07/26. However, patient has appointment w/MFM w/scan on 08/04. Should 07/26 appointment be cancelled? Please advise. Thank you! [facility] documented in this encounter Plan of Treatment Upcoming Encounters Date Type Specialty Care Team Description 07/27/2023 Telemedicine Maternal Medicine Angelica Michelle CRNP [address] [place], [place] [phone] 07/28/2023 Office Visit Gynecology Obstetrics Meggan Diaz CRNP [address] [place] [address] 08/04/2023 Office Visit Maternal Medicine Rick Loki BoggsDO [address] [place] [address] 08/04/2023 Imaging Radiology Health Maintenance Due Date Last Done Comments [...] filedocumented as of this encounter Care Teams Telephone Triage Nurse Relationship Specialty Start Date End Date Zakia Amato MD [address] [place] [address] PCP - General Internal Medicine 05/05/21 documented as of this encounter
--- OUTSIDE RECORDS SUMMARY | 2023-12-03 03:19 | External Medical Summary | Summary of Care ---
Author Name Unknown Organization [facility] Address [address] [place] [facility] [place] [place] [address] Phone [phone] Care Team Providers Care Fur Finisher Name Role Phone Zakia Amato MD Primary Care Provider Encounter Details Date Type Department Care Team Description 07/19/2023 Telephone Gynecology/Obstetrics [facility] [address] [place] [id number] Meggan Diaz CRNP [address] [place] [address] Allergies Active Allergy Reactions Severity Noted Date Comments Latex Other (Please comment) 11/01/2017 Sensitive Azithromycin 09/25/2008 documented as of this encounter (statuses as of 07/19/2023) Medications Medication Sig Dispensed Refills Start Date End Date Status Vit-Fe Mtq-GH-Bpcfk ( FORMULA) 28-0.8-235 MG CAPS Take by mouth. 0 Ac tive Synthroid 100 MCG Oral TabletIndications:Ac quired hypothyroidism,Pregn ant and not yet delivered, first trimester Take 1 Tablet by mouth in the morning. (at least 30 min prior to breakfast or other meds). 30 Tablet 11 04/01/2023 Active documented as of this encounter (statuses as of 07/19/2023) Active Problems Problem Noted Date Normal 06/03/2023 AMA (advanced maternal age) multigravida 35+ 04/27/2023 Overview: Qnatal low risk History of 2019 novel coronavirus diseas e (COVID-19) 07/08/2022 Thyroid nodule 05/14/2021 Overview: Thyroid nodule diagnosed 2013. Biopsied at [place], benign. Last ultrasound 04/2020 noted calcifications, moderately [...] as of this encounter (statuses as of 07/19/2023) Resolved Problems Problem Noted Date Resolved Date Subchorionic hemorrhage in first trimester 08/0808/15/2020 Supervision of normal first 07/09/2020 08/15/2020 AMA (advanced maternal age) primigravida 35+ 08/15/2020 Backache 07/08/2020 Overview: wears orthotics and exercises documented as of this encounter (statuses as of 07/19/2023) Immunizations Name Administration Dates Next Due COVID-19 [...] Specialty Care Team Description 07/26/2023 Imaging Radiology 07/28/2023 Office Visit Gynecology Obstetrics Meggan Diaz CRNP [address] [facility] [place] [address] Health Maintenance Due Date Last Done Comments Hepatitis B (1 of 3 - 3-dose series) 1985 HPV/Co-Test 2015 COVID-19 Vaccine (3 - Moderna series) 02/02/2021 12/08/2020, 11/13/2020 Diabetes Screening 11/07/2022 11/07/2019 Depression Screening 07/08/2023 07/08/2022 TSH 07/14/2024 07/14/2023, [...] filedocumented as of this encounter Care Teams Fur Finisher Relationship Specialty Start Date End Date Zakia Amato MD [address] [place] [address] PCP - General Internal Medicine 05/05/21 documented as of this encounter
--- OUTSIDE RECORDS SUMMARY | 2023-12-03 03:19 | External Medical Summary | Summary of Care ---
Author Name Unknown Organization [facility] Address [address] [facility] [place] [address] Phone [phone] Care Team Providers Care Amalgamator Name Role Phone Zakia Amato MD Primary Care Provider Encounter Details Date Type Department Care Team Description 07/04/2023 Telephone Gynecology/Obstetrics [facility] [address] [place] [address] Melvina Faulkner MD [address] [place] [phone] Allergies Active Allergy Reactions Severity Noted Date Comments Latex Other (Please comment) 11/01/2017 Sensitive Azithromycin 09/25/2008 documented as of this encounter (statuses as of 07/04/2023) Medications Medication Sig Dispensed Refills Start Date End Date Status Vit-Fe Fkx-XT-Pjtig ( FORMULA) 28-0.8-235 MG CAPS Take by mouth. 0 Ac tive Synthroid 100 MCG Oral TabletIndications:Ac quired hypothyroidism,Pregn ant and not yet delivered, first trimester Take 1 Tablet by mouth in the morning. (at least 30 min prior to breakfast or other meds). 30 Tablet 11 04/01/2023 Active documented as of this encounter (statuses as of 07/04/2023) Active Problems Problem Noted Date Normal 06/03/2023 AMA (advanced maternal age) multigravida 35+ 04/27/2023 Overview: Qnatal low risk History of 2019 novel coronavirus diseas e (COVID-19) 07/08/2022 Thyroid nodule 05/14/2021 Overview: Thyroid nodule diagnosed 2013. Biopsied at [place], benign. Last ultrasound 04/2020 noted calcifications, moderately [...] as of this encounter (statuses as of 07/04/2023) Resolved Problems Problem Noted Date Resolved Date Subchorionic hemorrhage in first trimester 08/0808/15/2020 Supervision of normal first 07/09/2020 08/15/2020 AMA (advanced maternal age) primigravida 35+ 08/15/2020 Backache 07/08/2020 Overview: wears orthotics and exercises documented as of this encounter (statuses as of 07/04/2023) Immunizations Name Administration Dates Next Due COVID-19 mRNA, LNP-s, No Pre serve, 2-Dose Series (Moderna) 12/08/2020,11/13/2020 Seasonal Influenza, PF, 6 mo ns & Above, IM , (Flulaval) 06/29/2023,07/08/2022,08/08/2020 TDAP (age 10 and older)(Boostrix) 11/01/2017 [...] Telephone Encounter - Radha Gordon RN - 07/04/2023 12:28 PM EDT Patient calling in at 19w with concern for low L sided pelvic/groin pain. States this is on and off, happens more with sitting. Is not severe. Denies any bleeding or leaking. Advised that it is likely round ligament pain and is expected in the 2nd trimester. Patient advised to push fluids, take tylenol as needed, and call back with any changes. Patient verbalized understanding. documented in this encounter Plan of Treatment Upcoming Encounters Date Type Specialty Care Team Description 07/26/2023 Imaging Radiology 07/28/2023 Office Visit Gynecology Obstetrics Meggan Diaz CRNP [address] [place] [address] Health Maintenance Due Date Last Done Comments Hepatitis B (1 of 3 - 3-dose series) 1985 HPV/Co-Test 2015 COVID-19 Vaccine (3 - Moderna series) 02/02/2021 12/08/2020, 11/13/2020 Diabetes Screening 11/07/2022 11/07/2019 Depression Screening 07/08/2023 07/08/2022 TSH 06/08/2024 06/08/2023, 04/16, 03/25/2023, Additional history exists Cervical Cancer Screening 08/07/2024 Pap Smear 08/07/2024 08/07/2021, 03/17, 03/29/2018 DTaP,Tdap,and Td Vaccines (2 - Td or Tdap) 11/01/2027 11/01/2017 Hepatitis C Screening Completed 04/27/2023, 018 Influenza Vaccine (FLU shot) Completed , 07/08/2022, [...] filedocumented as of this encounter Care Teams Amalgamator Relationship Specialty Start Date End Date Zakia Amato MD [address] [place] [address] PCP - General Internal Medicine 05/05/21 documented as of this encounter
--- OUTSIDE RECORDS SUMMARY | 2023-12-03 03:19 | External Medical Summary | Summary of Care ---
Author Name Unknown Organization [facility] Address [address] [place] [address] Phone [phone] Care Team Providers Care Engine Cowling Installer Name Role Phone Zakia Amato MD Primary Care Provider Reason for Referral * Evaluate & Treat - Unlimited Visits (Within 10 days (routine)) - Pending Review Specialty Diagnoses / Procedures Referred By Contac t Referred To Contact Obstetrics/Gynecology / Maternal Medicine Diagnoses Acquired hypothyroidism Steven Diaz CRNP [address] [place] [address] Referral ID Status Reason Start Date Expiration Date Visits Requested Visits Authorized [id number] Pending Review Specialty Services Required 07/20/2023 999 [...] Kvng Walker [address] [place] [address] Steven Diaz CRNP [address] [place] [address] Allergies Active Allergy Reactions Severity Noted Date Comments Latex Other (Please comment) 11/01/2017 Sensitive Azithromycin 09/25/2008 documented as of this encounter (statuses as of 07/20/2023) Medications Medication Sig Dispensed Refills Start Date End Date Status Vit-Fe Puz-SH-Yhirc ( FORMULA) 28-0.8-235 MG CAPS Take by [...] Overview: Thyroid nodule diagnosed 2013. Biopsied at [place], benign. Last ultrasound 04/2020 noted calcifications, moderately [...] Patient calling back in. Questioning referral to [facility]. Asking what they would do differently then [...] Imaging Radiology 07/28/2023 Office Visit Gynecology Obstetrics Steven Diaz CRNP [address] [place] [address] Scheduled Orders Name Type Priority Associated Diagnoses [...] trimester documented in this encounter Care Teams Engine Cowling Installer Relationship Specialty Start Date End Date Zakia Amato MD [address] [place] [address] PCP - General Internal Medicine 05/05/21 documented as of this encounter
--- OUTSIDE RECORDS SUMMARY | 2023-12-03 03:19 | External Medical Summary | Summary of Care ---
Author Name Unknown Organization [facility] Address [address] [place] [address] Phone [phone] Care Team Providers Care Protection Engineer Name Role Phone Zakia Amato MD Primary Care Provider Reason for Visit * Reason Onset Date Comments Return Visit Medication Administration 06/29/2023 Flu an d/or Pneumo Inj Encounter Details Date Type Department Care Team Description 06/29/2023 Office Visit Gynecology/Obstetrics [facility] [address] [place] [address] Meggan Diaz CRNP [address] [place] [id number] Multigravida of advanced maternal age in second trimester*; Hypothyroidism affecting , antepartum; Normal in second trimester; Need for prophylactic vaccination and inoculation against influenza; related conditions, unspecified, second trimester Allergies Active Allergy Reactions Severity Noted Date Comments Latex Other (Please comment) 11/01/2017 Sensitive Azithromycin 09/25/2008 documented as of this encounter (statuses as of 06/29/2023) Medications Medication Sig Dispensed Refills Start Date End Date Status Vit-Fe Ppa-JY-Jwsaz ( FORMULA) 28-0.8-235 MG CAPS Take by mouth. 0 Ac tive Synthroid 100 MCG Oral TabletIndications:Ac quired hypothyroidism,Pregn ant and not yet delivered, first trimester Take 1 Tablet by mouth in the morning. (at least 30 min prior to breakfast or other meds). 30 Tablet 11 04/01/2023 Active documented as of this encounter (statuses as of 06/29/2023) Active Problems Problem Noted Date Normal 06/03/2023 AMA (advanced maternal age) multigravida 35+ 04/27/2023 Overview: Qnatal low risk History of 2019 novel coronavirus diseas e (COVID-19) 07/08/2022 Thyroid nodule 05/14/2021 Overview: Thyroid nodule diagnosed 2013. Biopsied at [place], benign. Last ultrasound 04/2020 noted calcifications, moderately [...] as of this encounter (statuses as of 06/29/2023) Resolved Problems Problem Noted Date Resolved Date Subchorionic hemorrhage in first trimester 08/0808/15/2020 Supervision of normal first 07/09/2020 08/15/2020 AMA (advanced maternal age) primigravida 35+ 08/15/2020 Backache 07/08/2020 Overview: wears orthotics and exercises documented as of this encounter (statuses as of 06/29/2023) Immunizations Name Administration Dates Next Due COVID-19 [...] Sign Reading Time Taken Comments Blood Pressure 108/60 06/29/2023 2:00 PM EDT Pulse - - Temperature - - Respiratory Rate - - Oxygen Saturation - - Inhaled Oxygen Concentration - - Weight 71.8 kg (158 lb 6.4 oz) 06/29/2023 2:00 P M EDT Height 167.6 cm (5' 6") 06/29/2023 2:00 PM EDT Body Mass Index 25.57 06/29/2023 2:00 PM EDT documented in this encounter Progress Notes * MARCELA Mcmahon - 06/29/2023 2:26 PM EDT 18w2d Feeling well overall. Has struggled sleeping in the past, but lately has been ok. Doesn't think she's felt FM yet.no bleeding or LOF. TSH ordered, will have drawn at [facility] in about 2 weeks. Anatomy u/s in 2-4 weeks. Flu vaccine given MARCELA Mcmahon * Merary Ayala LPN - 06/29/2023 2:04 PM EDT 18w2d Pt denies any concerns. Would like flu shot today. documented in this encounter Nursing Notes * Merary Ayala LPN - 06/29/2023 2:17 PM EDT Patient here for flu injection. Patient doing well no complaints. Injection [...] Diaz CRNP [address] [place] [address] Scheduled Orders Name Type Priority Associated Diagnoses Orde r Schedule US PREG SINGLE/1ST GEST, 14 WEEKS OR LATER Medical Imaging Routine Multigravida of advanced maternal age in second trimester related conditions, unspecified, second trimester Expected: 07/13/2023 (Approximate), Expires: 07/29/2024 TSH WITH FREE T4 IF INDICATED Lab Routine Hypothyroidism affecting , antepartum Ordered: 06/29/2023 Health Maintenance Due Date Last Done Comments [...] age in second trimester- Primary Hypothyroidism affecting , antepartum Normal in second trimester Need for prophylactic vaccination and inoculation against influenza related conditions, unspecified, second trimester documented in this encounter Care Teams Protection Engineer Relationship Specialty Start Date End Date Zakia Amato MD [address] [place] [address] PCP - General Internal Medicine 05/05/21 documented as of this encounter
--- OUTSIDE RECORDS SUMMARY | 2023-12-03 03:19 | External Medical Summary | Summary of Care ---
Author Name Unknown Organization [facility] Address [address] [place] [address] Phone [phone] Care Team Providers Care Manager Collection Name Role Phone Zakia Amato MD Primary Care Provider Reason for Referral * Evaluate & Treat - Unlimited Visits (Within 10 days (routine)) - Pending Review Specialty Diagnoses / Procedures Referred By Contac t Referred To Contact Obstetrics/Gynecology / Maternal Medicine Diagnoses Acquired hypothyroidism Steven Diaz CRNP [address] [place] [address] Referral ID Status Reason Start Date Expiration Date Visits Requested Visits Authorized [id number] Pending Review Specialty Services Required 07/20/2023 999 [...] [facility] Walker [address] [place] [address] Steven Diaz CRNP [address] [place] [address] Allergies Active Allergy Reactions Severity Noted Date Comments Latex Other (Please comment) 11/01/2017 Sensitive Azithromycin 09/25/2008 documented as of this encounter (statuses as of 07/20/2023) Medications Medication Sig Dispensed Refills Start Date End Date Status Vit-Fe Byr-KR-Fhdbz ( FORMULA) 28-0.8-235 MG CAPS Take by [...] Overview: Thyroid nodule diagnosed 2013. Biopsied at [place], benign. Last ultrasound 04/2020 noted calcifications, moderately [...] as of this encounter Miscellaneous Notes * Addendum Note - MARCELA Mcmahon - [...] Visit Gynecology Obstetrics Steven Diaz CRNP [address] [place] [address] Scheduled Orders Name Type Priority Associated Diagnoses [...] trimester documented in this encounter Care Teams Manager Collection Relationship Specialty Start Date End Date Zakia Amato MD [address] [place] [address] PCP - General Internal Medicine 05/05/21 documented as of this encounter
--- OUTSIDE RECORDS SUMMARY | 2023-12-03 03:19 | External Medical Summary | Summary of Care ---
Author Name Unknown Organization [facility] Address [address] [place] [address] Phone [phone] Care Team Providers Care Finishing Lab Technician Name Role Phone Zakia Amato MD Primary Care Provider Encounter Details Date Type Department Care Team Description 07/19/2023 Telephone Gynecology/Obstetrics [facility] [address] [place] [id number] Meggan Diaz CRNP [address] [place] [address] Allergies Active Allergy Reactions Severity Noted Date Comments Latex Other (Please comment) 11/01/2017 Sensitive Azithromycin 09/25/2008 documented as of this encounter (statuses as of 07/19/2023) Medications Medication Sig Dispensed Refills Start Date End Date Status Vit-Fe Nev-ST-Dhelu ( FORMULA) 28-0.8-235 MG CAPS Take by [...] Overview: Thyroid nodule diagnosed 2013. Biopsied at [place], benign. Last ultrasound 04/2020 noted calcifications, moderately [...] Visit Gynecology Obstetrics Meggan Diaz CRNP [address] [facility] [place] [address] Health Maintenance Due Date Last Done Comments [...] filedocumented as of this encounter Care Teams Finishing Lab Technician Relationship Specialty Start Date End Date Zakia Amato MD [address] [place] [address] PCP - General Internal Medicine 05/05/21 documented as of this encounter
--- OUTSIDE RECORDS SUMMARY | 2023-12-03 03:19 | External Medical Summary | Summary of Care ---
Author Name Unknown Organization [facility] Address [address] [place] [address] Phone [phone] Care Team Providers Care Plywood Layup Line Core Layer Name Role Phone Zakia Amato MD Primary Care Provider Encounter Details Date Type Department Care Team Description 07/04/2023 Orders Only Outcomes Research Department [address] [place] [address] Darlin Savage CHRA [employer] [facility] Other*[id number] Allergies Active Allergy Reactions Severity Noted Date Comments Latex Other (Please comment) 11/01/2017 Sensitive Azithromycin 09/25/2008 documented as of this encounter (statuses as of 07/04/2023) Medications Medication Sig Dispensed Refills Start Date End Date Status Vit-Fe Xze-LA-Wieqs ( FORMULA) 28-0.8-235 MG CAPS Take by [...] Overview: Thyroid nodule diagnosed 2013. Biopsied at [place], benign. Last ultrasound 04/2020 noted calcifications, moderately [...] Meggan Diaz CRNP [address] [place] [address] Scheduled Orders Name Type Priority Associated Diagnoses Orde r Schedule MYCODE INITIAL ADULT Lab Routine [facility] Other*[id number] Expected: 07/04/2023 (Approximate), Expires: 07/23/2024 Health Maintenance Due Date Last Done Comments [...] as of this encounter Visit Diagnoses Diagnosis [facility] Other*[id number] documented in this encounter Care Teams Plywood Layup Line Core Layer Relationship Specialty Start Date End Date Zakia Amato MD [address] [place] [address] PCP - General Internal Medicine 05/05/21 documented as of this encounter
[2023-12-03] MEDS: miSOPROStoL 50 MCG TAB PO SCH (04:23)
[2023-12-03] MEDS: LEVOTHYROXINE SODIUM 125 MCG TABLET PO SCH (06:56)
[2023-12-03] MEDS ORDERED: CYANOCOBALAMIN (B-12) 500 MCG TABLET PO SCH (09:00)
--- NOTE | 2023-12-03 13:03 | Obstetrical Progress Note ---
Date of Service December 03, 2023 Assessment & Plan (1) Post-term , 40-42 weeks of gestation: Plan: Induction for post dates Day 32 pt received 1 Cervidil + 2cytotecs FHR; CAT1 ctx; irregular VE;2/post EFw ; 7-8Lbs Norris bulb placed with 35cc saline pt tolerated procedure well starting Pitocin augmentation Admission and Anticipated Discharge Date Admission Date: December 02, 2023 Results & Data Vital Signs (Past 12 Hours) Vital Signs Temp Pulse Resp BP 12/03/23 11:56 76 117/76 12/03/23 07:59 36.7 C 71 18 120/69 12/03/23 04:00 75 132/71 12/03/23 03:59 16 12/03/23 03:59 36.7 C 16
[2023-12-03] MEDS: CYANOCOBALAMIN (B-12) 500 MCG TABLET PO SCH (13:18)
[2023-12-03] MEDS: LACTATED RINGER'S 1,000 ML IV PRN (13:30)
[2023-12-03] MEDS: OXYTOCIN 30 UNITS/NSS 30 UNITS/500 ML BAG IV PRN (13:34)
--- NOTE | 2023-12-03 17:23 | Anesthesiology Consultation ---
Date of Service December 03, 2023 Assessment & Plan Chart Review Chart Review: Acceptable Risk for Labor Epidural Consults Requested none ASA ASA2 Proposed Anesthesia Anesthesia Type: Labor Epidural Risk / Benefits Reviewed With: PT / POA / Parent / Guardian, Accepts Plan and Informed Consent Obtained History Height/Weight Height: 5 ft 6 in Weight: 81.647 kg Allergies Allergy/AdvReac Type Severity Reaction Status Date / Time azithromycin [From Zithromax] AdvReac Intermediate Hives Verified 08/15/20 09:04 latex AdvReac Intermediate Rash Verified 08/15/20 09:04 Medications Home Medications Medication Instructions Recorded Confirmed Last Taken levothyroxine 75 mcg tablet 125 mcg PO QAM 08/14/20 12/02/23 12/02/23 vitamin-ferrous sulfate 1 tab PO QPM 08/14/20 12/02/23 12/01/23 27 mg iron-folic acid 0.8 mg tablet cyanocobalamin (vitamin B-12) 25 1,000 mcg PO DAILY 12/02/23 12/02/23 Unknown mcg tablet Active Medications Generic Name Dose Route Start Last Admin Trade Name Freq PRN Reason Stop Dose Admin Cyanocobalamin 1,000 mcg 12/03/23 09:00 12/03/23 13:18 Cyanocobalamin (B-12) 500 Mcg Tablet PO 01/02/24 08:59 Not Given QAM [facility] Diphenhydramine HCl 25 mg 12/03/23 01:38 12/03/23 02:19 Diphenhydramine Capsule 25 Mg Cap PO 01/02/24 01:37 25 mg Q6 PRN Administration Insomnia Lactated Ringer's 1,000 mls @ 150 mls/hr 12/02/23 13:09 12/03/23 16:45 Lr IV 12/04/23 13:08 999 mls/hr .Q6H40M PRN Infusion L&D Protocol Protocol Oxytocin 30 units in 500 mls @ 10 mls/hr 12/03/23 13:03 12/03/23 17:08 Pitocin 30 Units/Nss IV 12/05/23 13:02 0.3 units/hr .Q24H PRN 5 mls/hr Labor Induction/Augmentation Titration Protocol 0.6 UNITS/HR Levothyroxine Sodium 125 mcg 12/03/23 06:30 12/03/23 06:56 Levothyroxine Sodium 125 Mcg Tablet PO 01/02/24 06:29 125 mcg DAILYBB WILMAN Administration Misoprostol 50 mcg 12/03/23 02:30 12/03/23 13:18 Misoprostol 50 Mcg Tab PO 01/02/24 02:29 Not Given Q4H WILMAN Prenat Multivit/[place]/Iron/Folic Ac 1 tab 12/02/23 21:00 12/02/23 20:15 Vitamin 1 Tab PO 01/01/24 20:59 1 tab QPM WILMAN Administration Past Medical History Medical History Sarah's disease Miscarriage Now for D+E Hypothyroidism Thyroid nodule BENIGN BIOPSY Heart murmur ? (Not mentioned in review of [facility] records, no h/o cardiac testing). Offset Platemaker did not hear it. Ultrasound revealed WNL. Exercise / Class Metabolic Activity II 4-5 Yardwork/Stairs/Walk up hill Past Family History Family History Other No family history of adverse response to anesthesia Past Surgical History Surgical History S/P thyroid biopsy History of esophagogastroduodenoscopy (EGD) [place] teeth removed History of appendectomy Past Anesthesia History No Hx of Anesthesia Complications and No Family Hx of Anesthesia Complications History of PONV No Hx of PONV and No Hx of Motion Sickness Social History Smoking Status: Never smoker Hx Alcohol Use: No Alcohol type: beer alcohol intake frequency: a few times a week Hx Substance Use: No substance use type: does not use Physical Exam Vital Signs Last Vital Signs Temp 98.2 F 12/03/23 15:29 Pulse 70 12/03/23 17:17 Resp 18 12/03/23 15:59 BP 114/73 12/03/23 15:59 Pulse Ox 100 12/03/23 17:17 O2 Del Method Room Air 12/02/23 19:15 ENMT Mouth: no dentition abnormality Thyromental Distance: > or= 3.5 Finger Breadths Mallampati Class: II Neck normal visual inspection Respiratory normal respiratory effort Auscultation: lungs clear to auscultation bilaterally Cardiovascular Rate/Rhythm: regular rate and regular rhythm Testing Laboratory Results 12/02/23 13:20
[2023-12-03] MEDS ORDERED: ROPIVACAINE 0.5% PF 5 MG/ML 20 ML VIAL EPI PRN (17:42)
[2023-12-03] MEDS ORDERED: fentANYL 2 MCG/ML BUPIVacaine 0.125%-NSS 100ML BAG EPI PRN (17:42)
[2023-12-03] MEDS ORDERED: diphenhydrAMINE 50 MG/ML VIAL IV PRN (17:42)
[2023-12-03] MEDS ORDERED: NALBUPHINE HCL 5 MG in SYRINGE 0 ML IV PRN (17:42)
[2023-12-03] MEDS ORDERED: ePHEDrine sulfate 50 MG/ML AMP IV PRN (17:42)
[2023-12-03] MEDS ORDERED: NALOXONE HCL 0.4 MG/1 ML VIAL/CARP IV PRN (17:42)
[2023-12-03] MEDS ORDERED: NALOXONE HCL 1 MG in SODIUM CHLORIDE 0.9% 1,000 ML IV PRN (17:42)
[2023-12-03] MEDS ORDERED: LIDOCAINE 2% MPF LOCAL 5 ML VIAL EPI PRN (17:42)
[2023-12-03] MEDS ORDERED: ONDANSETRON INJ 2 MG/ML 2 ML VIAL IV PRN (17:42)
[2023-12-03] MEDS: fentANYL 2 MCG/ML BUPIVacaine 0.125%-NSS 100ML BAG ONE (17:42)
[2023-12-03] MEDS: BUPIVACAINE 0.25% PF 30 ML VIAL ONE (17:46)
[2023-12-03] MEDS: LIDOCAINE 2%/EPINEPHRINE 1:200,000 20 ML PF ONE (17:46)
[2023-12-03] MEDS: BUTORPHANOL TARTRATE 2 MG/ML VIAL IV ONE (17:47)
[2023-12-03] MEDS: SODIUM CHLORIDE 0.9% PF INJ 10 ML VIAL ONE (17:50)
[2023-12-03] MEDS: fentaNYL citrate PF 100 MCG/2 ML VIAL ONE (17:50)
[2023-12-03] MEDS: BUPIVACAINE 0.25% PF 30 ML VIAL EPI STA (18:15)
[2023-12-03] MEDS: SODIUM CHLORIDE 0.9% PF INJ 10 ML VIAL EPI STA (18:16)
[2023-12-03] MEDS: fentaNYL citrate PF 100 MCG/2 ML VIAL EPI STA (18:16)
[2023-12-03] MEDS: LIDOCAINE 2%/EPINEPHRINE 1:200,000 20 ML PF EPI STA (18:16)
[2023-12-03] MEDS ORDERED: NURSING L&D Epidural Breakthrough Pain Update ONE (19:14)
[2023-12-03] MEDS: BUPIVACAINE 0.25% PF 30 ML VIAL EPI PRN (20:18)
[2023-12-03] MEDS: SODIUM CHLORIDE 0.9% PF INJ 10 ML VIAL EPI PRN (20:18)
[2023-12-03] MEDS: fentaNYL citrate PF 100 MCG/2 ML VIAL EPI PRN (20:18)
--- NOTE | 2023-12-03 20:20 | Anesthesia Procedure Note ---
Date of Service December 03, 2023 Anesthesia Epidural Re-Dose Vital Signs Temp Pulse Resp BP Pulse Ox O2 Del Method 36.8 C 81 20 118/76 100 Room Air 12/03/23 19:10 12/03/23 20:12 12/03/23 19:10 12/03/23 20:05 12/03/23 20:12 12/02/23 19:15 Notes Pain Intensity: 9 Dilatation (cm): 4.0 Effacement (%): 50 Called by nursing to evaluate epidural as the patient is having increased pain. The epidural was re-dosed with the following medications (all medications via epidural route) after negative aspiration of the epidural catheter for CSF/HEME. 0.2 Ropivacaine ml via epidural After Epidural Re-Dose Mental Status: alert / awake / arousable and participated in evaluation Pain: improving with treatment Airway Patency, RR, SpO2: stable & adequate BP & HR: stable & adequate Additional Notes: Patient requested redose of epidural for bilateral lower abdomen pain. On level test with ice, patient had T10 level on left and T12 level on right. Redosed w ith 10 cc of 0.125 bupi + 100 mcg fentanyl. Pain improved. HDS.
[2023-12-04] MEDS: METHYLERGONOVINE MALEATE 0.2 MG/ML AMP ONE (00:40)
[2023-12-04] MEDS: miSOPROStoL 200 MCG TAB ONE (01:01)
[2023-12-04] MEDS ORDERED: HYDROCORTISONE ACETATE 25 MG SUPP PR PRN (01:07)
[2023-12-04] MEDS ORDERED: OXYTOCIN 30 UNITS/NSS 30 UNITS/500 ML BAG IV PRN (01:07)
[2023-12-04] MEDS ORDERED: BENZOCAINE 20% SPRY 85 APPLN/85 GM CAN EXT PRN (01:07)
[2023-12-04] MEDS ORDERED: bisacodyL 10 MG SUPP PR PRN (01:07)
--- NOTE | 2023-12-04 01:09 | Delivery Summary ---
Vaginal Delivery Summary Date of Service December 04, 2023 Vaginal Delivery Summary DELIVERY NOTE Patient delivered a live male in left occiput anterior presentation there was no nuchal cord which was easily reduced. was delivered and placed on mother's abdomen. Delayed cord clamping was performed. Cord blood is obtained Placenta is spontaneously delivered. Placenta appears grossly normal and has 3 vessel cord Inspection of the perineum showed a second-degree midline laceration. Laceration is repaired in layers with 2-0 Vicryl in layers Rectal exam post repair showed good sphincter tone no sutures palpated in the rectum. Estimated blood loss is 450 cc per Infants weight and scores are in the pediatric record Mother and baby are stable in in the recovery
[2023-12-04] MEDS: ePHEDrine sulfate 50 MG/ML AMP ONE (01:55)
[2023-12-04] MEDS: DIPHTHER/TETAN/PERTUS Vaccine (Tdap, Adol/Adult) 0.5mL IM ONE (01:56)
[2023-12-04] MEDS: METHYLERGONOVINE MALEATE 0.2 MG/ML AMP IM ONE (01:59)
[2023-12-04] MEDS: miSOPROStoL 200 MCG TAB PR ONE (01:59)
[2023-12-04] MEDS ORDERED: Nursing to Pharmacy Communication SCH (02:15)
[2023-12-04] MEDS: IBUPROFEN 600 MG TAB PO PRN (08:00)
[2023-12-04] MEDS: DOCUSATE SODIUM 100 MG CAP PO SCH (08:00)
--- NOTE | 2023-12-04 08:24 | Anesthesia Procedure Note ---
Date of Service December 04, 2023 Anesthesia Post Epidural Note Vital Signs Vital Signs: Temp Pulse Resp BP Pulse Ox O2 Del Method 98.8 F 88 16 130/62 94 Room Air 12/04/23 04:15 12/04/23 04:15 12/04/23 04:15 12/04/23 04:15 12/04/23 01:08 12/04/23 04:15 Pain Intensity Abdomen: Pain Intensity: 4 Notes Mental Status: alert / awake / arousable and participated in evaluation Nausea / Vomiting: adequately controlled Pain: adequately controlled Airway Patency, RR, SpO2: stable & adequate BP & HR: stable & adequate Hydration State: stable & adequate Neuraxial Anesthesia: was administered and sensory block is resolving Anesthetic Complications: no major complications apparent and Pt Satisfied with anesthetic care Epidural: Removed without complications and With tip intact
[2023-12-04] MEDS: PRENATAL VITAMIN 1 TAB PO SCH (12:09)
[2023-12-04] MEDS: ACETAMINOPHEN 325 MG TAB PO PRN (14:34)
[2023-12-05 06:27] LABS: Hematocrit (blood only) 31.6 % (37.0-47.0); Mean Corpuscular Hemoglobin 30.6 pg (25.0-34.0); Mean Corpuscular Hgb Conc 34.8 g/dL (32.0-36.0); Mean Corpuscular Volume 87.8 fL (80.0-100.0); Mean Platelet Volume 10.4 fL (9.4-12.4); Platelet Count 244 K/uL (130-400); RDW Coefficient of Variation 13.5 % (11.5-14.5); RDW Standard Deviation 43.6 fL (36.4-46.3); White Blood Count 16.35 K/ul (4.8-10.8)
--- NOTE | 2023-12-05 09:59 | Obstetrical Progress Note ---
Date of Service December 05, 2023 Assessment & Plan Admission and Anticipated Discharge Date Admission Date: December 02, 2023 Subjective Patient is seen and examined. She feels well, no complaints. Ambulating without dizziness Voiding without difficulty Tolerating regular diet with out N&V Bleeding is minimal No fever/ chills/ CP/ SOB/ N&V/ Leg pain Breast feeding without problems Vital Signs Temp Pulse Resp BP Pulse Ox O2 Del Method 12/05/23 07:38 Room Air 12/05/23 07:38 37.0 C 71 18 126/81 100 Room Air 12/04/23 22:40 36.3 C L 70 16 120/79 99 Room Air Vital Signs Temp Pulse Resp BP Pulse Ox O2 Del Method 12/05/23 07:38 Room Air 12/05/23 07:38 37.0 C 71 18 126/81 100 Room Air 12/04/23 22:40 36.3 C L 70 16 120/79 99 Room Air 12/04/23 19:40 36.3 C L 80 16 114/76 98 Room Air 12/04/23 16:00 36.7 C 74 12 112/73 98 Room Air 12/04/23 12:51 36.3 C L 74 14 117/74 100 Room Air Lab Results 12/02/23 12/05/23 Range/Units 13:20 06:00 WBC 11.41 H 16.35 H (4.8-10.8) K/ul RBC 4.08 L 3.60 L (4.20-5.40) M/uL Hgb 12.4 11.0 L (12.0-16.0) g/dl Hct 36.0 L 31.6 L (37.0-47.0) % MCV 88.2 87.8 (80.0-100.0) fL MCH 30.4 30.6 (25.0-34.0) pg MCHC 34.4 34.8 (32.0-36.0) g/dL RDW Std Deviation 43.1 43.6 (36.4-46.3) fL RDW Coeff of Aleyda 13.5 13.5 (11.5-14.5) % Plt Count 277 244 (130-400) K/uL MPV 10.3 10.4 (9.4-12.4) fL PE: General: Alert, orientedx3, NAD Abd: soft, NT, fundus firm, below Umbilicus Perineum intact, Lochia rubra minimal Ext; NT, no edema AP: 38 yo s/p , ppd# 1 VSS Afebrile doing well Continue routine care All questions were answered Desires D/C home this evening Plan to repeat CBC afternoon to see trend down Results & Data Vital Signs (Past 12 Hours) Vital Signs Temp Pulse Resp BP Pulse Ox O2 Del Method 12/05/23 07:38 Room Air 12/05/23 07:38 37.0 C 71 18 126/81 100 Room Air 12/04/23 22:40 36.3 C L 70 16 120/79 99 Room Air
[2023-12-05] MEDS: bisacodyL 5 MG TABEC PO SCH (21:58)
[2023-12-06 06:38] LABS: Basophils # (auto) 0.07 K/uL (0.00-0.20); Basophils % (auto) 0.6 %; Eosinophils # (auto) 0.26 K/uL (0.00-0.50); Eosinophils % (auto) 2.3 %; Hematocrit (blood only) 32.6 % (37.0-47.0); Immature Granulocytes # (auto) 0.24 K/uL (0.01-0.20); Immature Granulocytes % (auto) 2.1 %; Lymphocytes # (auto) 2.06 K/uL (1.20-3.40); Lymphocytes % (auto) 18.1 %; Mean Corpuscular Hemoglobin 29.9 pg (25.0-34.0); Mean Corpuscular Hgb Conc 33.7 g/dL (32.0-36.0); Mean Corpuscular Volume 88.6 fL (80.0-100.0); Mean Platelet Volume 10.3 fL (9.4-12.4); Monocytes % (auto) 6.2 %; Neutrophils # (auto) 8.02 K/uL (1.40-6.50); Neutrophils % (auto) 70.7 %; Platelet Count 265 K/uL (130-400); RDW Coefficient of Variation 13.3 % (11.5-14.5); RDW Standard Deviation 43.7 fL (36.4-46.3); Red Blood Count 3.68 M/uL (4.20-5.40); White Blood Count 11.35 K/ul (4.8-10.8)
--- NOTE | 2023-12-06 11:05 | Obstetrical Progress Note ---
Date of Service December 06, 2023 Assessment & Plan (1) Normal course: PPD#2 Pt doing well d/c home with instructions Results & Data Vital Signs (Past 12 Hours) Vital Signs Temp Pulse Resp BP Pulse Ox O2 Del Method 12/06/23 07:30 36.7 C 69 16 123/81 100 Room Air 12/05/23 23:30 36.5 C 75 18 116/72
== END 2023-12-06 13:15 | disposition home health service (06) | DRG 807 ==
LOC: 4S1 12:07 → 4E2 12-04 04:30